=== PATIENT | male | born 1945 | race Caucasian/White ===

== ENCOUNTER 2018-12-05 21:18 | Inpatient (IN) | payer MEDICARE ==
[~2018-12-05] VITALS: Ht 188 cm; Wt 113.5 kg
--- NOTE | 2018-12-05 21:25 | ED.ADGEN ---
Past History Past Medical History: Arthritis, Bipolar, Dementia, Depression Adult General Chief Complaint Chief Complaint " Nothing... Nothing wrong...".." Except that I ve been on my feet all day..."." I should be in my recliner... I am retired...." " Retired from [employer] and [employer]... " HPI HPI Patient is a 73 year old male who presents with above hx and complaints of mental status change. [place] [facility] [place] on assisted and 3 yrs on in patient side. . Patient poorly having more delusions, paranoid thoughts, anger outbursts, irritability, depression, and more difficult to redirect. Patient has a history of dementia, bipolar, arthritis, diabetes, lumbar stenosis, sleep apnea, coronary artery disease, hypertension, hypothyroid, schizo effective disorder, hyperlipidemia, and deconditioning. 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 Patient follows with Dr. Pfeiffer. Review of Systems Review of Systems Constitutional: Denies fever or chills [] Eyes: Denies change in visual acuity, redness, or eye pain [] HENT: Denies nasal congestion or sore throat [] Respiratory: Denies cough or shortness of breath [] Cardiovascular: No additional information not addressed in HPI [] GI: Denies abdominal pain, nausea, vomiting, bloody stools or diarrhea [] : Denies dysuria or hematuria [] Musculoskeletal:Complaints of chronic back pain or joint pain [] Integument: Denies rash or skin lesions [] Neurologic: Denies headache, focal weakness or sensory changes [] Endocrine: Denies polyuria or polydipsia [] All other systems were reviewed and found to be within normal limits, except as documented in this note. Family History Family History Non-contributory Current Medications Current Medications Current Medications Medications (Trade) Dose Ordered Sig/Russel Start Time Stop Time Status Last Admin Dose Admin Lactated Ringer's 1,000 ml @ 100 mls/hr Q10H 12/05/18 21:29 12/06/18 00:42 DC 12/05/18 22:56 100 MLS/HR Levofloxacin (Levaquin) 500 mg 1X ONCE 12/06/18 00:15 12/06/18 00:16 DC 12/06/18 00:10 500 MG Magnesium Hydroxide (Milk Of Magnesia) 2,400 mg 1X ONCE 12/05/18 23:55 12/05/18 23:56 DC 12/06/18 00:10 2,400 MG Allergies Allergies Allergies Coded Allergies Type Severity Reaction Last Updated Verified Penicillins Allergy Unknown Unknown 12/05/18 Yes Pjaiijy-Kkh-Oyd Reductase Inhibitor Allergy Unknown Unknown 12/05/18 Yes Physical Exam Physical Exam Constitutional: no acute distress, non-toxic appearance. [] HENT: Normocephalic, atraumatic, bilateral external ears normal, oropharynx moist, no oral exudates, nose normal. [] Eyes: PERRLA, EOMI, conjunctiva normal, no discharge. Glasses. Iris scar from surgery Neck: Normal range of motion, no tenderness, supple, no stridor. [] Cardiovascular:Heart rate regular rhythm, no murmur. PMI to the left Lungs & Thorax: Bilateral breath sounds with apex with scattered wheezes auscultation [] Abdomen: Bowel sounds normal, soft, no tenderness, no masses, no pulsatile masses. [] Large midline hernia and umbilicus hernia- chronic Skin: Warm, dry, no erythema, no rash. [] Back: No tenderness, no CVA tenderness. [] Extremities: No tenderness, no cyanosis, no clubbing, ROM intact, calf edema, lower leg braces for foot drop. . Arthritis changes. Neurologic: Alert and oriented X 3, moves all ext on request, lower leg weakness, distal sensory, shuffling gait. ] Psychologic: Affect angry, judgement appears impaired, mood normal. [] Current Patient Data Lab Results Laboratory Tests Test 12/05/18 21:45 12/05/18 22:13 White Blood Count 7.4 x10^3/uL (4.0-11.0) Red Blood Count 4.63 x10^6/uL (4.30-5.70) Hemoglobin 14.3 g/dL (13.0-17.5) Hematocrit 42.7 % (39.0-53.0) Mean Corpuscular Volume 92 fL (79-100) Mean Corpuscular Hemoglobin 31 pg (25-35) Mean Corpuscular Hemoglobin Concent 34 g/dL (31-37) Red Cell Distribution Width 13.8 % (11.5-14.5) Platelet Count 282 x10^3/uL (140-400) Neutrophils (%) (Auto) 57 % (31-73) Lymphocytes (%) (Auto) 30 % (24-48) Monocytes (%) (Auto) 9 % (0-9) Eosinophils (%) (Auto) 4 % (0-3) H Basophils (%) (Auto) 0 % (0-3) Neutrophils # (Auto) 4.2 x10^3uL (1.8-7.7) Lymphocytes # (Auto) 2.2 x10^3/uL (1.0-4.8) Monocytes # (Auto) 0.6 x10^3/uL (0.0-1.1) Eosinophils # (Auto) 0.3 x10^3/uL (0.0-0.7) Basophils # (Auto) 0.0 x10^3/uL (0.0-0.2) Erythrocyte Sedimentation Rate 3 (0-15) Prothrombin Time 9.9 SEC (9.4-11.4) Prothrombin Time INR 1.0 (0.9-1.1) PTT 24 SEC (23-33) D-Dimer (La) 0.27 mg/L (0.00-0.50) Sodium Level 127 mmol/L (136-145) L Potassium Level 4.0 mmol/L (3.5-5.1) Chloride Level 89 mmol/L (98-107) L Carbon Dioxide Level 32 mmol/L (21-32) Anion Gap 6 (6-14) Blood Urea Nitrogen 11 mg/dL (8-26) Creatinine 0.9 mg/dL (0.7-1.3) Estimated GFR (Cockcroft-Gault) 82.9 Glucose Level 156 mg/dL (70-99) H Calcium Level 9.4 mg/dL (8.5-10.1) Magnesium Level 1.7 mg/dL (1.8-2.4) L Total Bilirubin 0.2 mg/dL (0.2-1.0) Direct Bilirubin 0.1 mg/dL (0.0-0.2) Aspartate Amino Transferase (AST) 37 U/L (15-37) Alanine Aminotransferase (ALT) 62 U/L (16-63) Alkaline Phosphatase 63 U/L (46-116) Creatine Kinase 290 U/L (39-308) Troponin I Quantitative < 0.017 ng/mL (0-0.055) HJ-Mzy-M-Type Natriuretic Peptide 54 pg/mL (0-124) Total Protein 6.7 g/dL (6.4-8.2) Albumin 3.8 g/dL (3.4-5.0) Lipase 232 U/L (73-393) Urine Collection Type Unknown Urine Color Yellow Urine Clarity Hazy Urine pH 7.0 Urine Specific [place] 1.010 Urine Protein Neg (NEG-TRACE) Urine Glucose (UA) Neg mg/dL (NEG) Urine Ketones (Stick) Neg mg/dL (NEG) Urine Blood Mod (NEG) Urine Nitrite Neg (NEG) Urine Bilirubin Neg (NEG) Urine Urobilinogen Dipstick 0.2 mg/dL (0.2 mg/dL) Urine Leukocyte Esterase Small (NEG) Urine RBC 1-2 /HPF (0-2) Urine WBC 1-4 /HPF (0-4) Urine Squamous Epithelial Cells Occ /LPF Urine Bacteria Few /HPF (0-FEW) Urine Opiates Screen Neg (NEG) Urine Methadone Screen Neg (NEG) Urine Barbiturates Neg (NEG) Urine Phencyclidine Screen Neg (NEG) Urine Amphetamine/Methamphetamine Neg (NEG) Urine Benzodiazepines Screen Neg (NEG) Urine Cocaine Screen Neg (NEG) Urine Cannabinoids Screen Neg (NEG) Urine Ethyl Alcohol Neg (NEG) EKG EKG My interpretation of EKG shows a sinus rhythm at 67 bpm. Left axis deviation and a fascicular block. No findings acute STEMI with contralateral changes. Some wavering baseline.[] Radiology/Procedures Radiology/Procedures [][address] [address] IMAGING REPORT Signed PATIENT: TISHA YORK ACCOUNT: [id number] : 1945 LOCATION: ER AGE: 73 SEX: M EXAM STATUS: REG ER ORD. PHYSICIAN: MARILIN MCELROY MD REASON: Mental status change PROCEDURE: CT HEAD WO CONTRAST INDICATION: Mental status change COMPARISON: None. TECHNIQUE: Axial CT images obtained through the head without intravenous contrast. One or more of the following individualized dose reduction techniques were utilized for this examination: 1. Automated exposure control; 2. Adjustment of the mA and/or kV according to patient size; 3. Use of iterative reconstruction technique. FINDINGS: No intracranial hemorrhage. No midline shift. Basal cisterns patents. Ventricles and sulci are globally prominent. No acute osseous abnormality. Orbits and paranasal sinuses unremarkable. Scattered foci of low attenuation within the white matter. IMPRESSION: 1. No acute intracranial hemorrhage. 2. Scattered regions of low attenuation within the white matter. Non-specific in nature but frequently secondary to chronic small vessel ischemic disease. 3. Prominence of ventricles and sulci which is frequently secondary to age related volume loss. Electronically signed by: Karie Villanueva MD (12/05/2018 10:50 PM) [facility] DICTATED AND SIGNED BY: KARIE VILLANUEVA MD DATE: 12/05/18 6735 CC: MARILIN MCELROY MD; JANE PFEIFFER Course & Med Decision Making Course & Med Decision Making Pertinent Labs and Imaging studies reviewed. (See chart for details) Admit to Dr. Elder, consult to Dr. Alexis [] Final Impression Final Impression 1. Mental Status Change[] 2. UTI 3. Hyponatremia 127 4. DM 156 5. Hypomagnesium 1.7 6. Hx Dementia 7. Hx. Delusions 8. Hx. Bipolar and Schizoaffective disorder Dragon Disclaimer Dragon Disclaimer This electronic medical record was generated, in whole or in part, using a voice recognition dictation system. Discharge Summary Visit Information Final Diagnosis Problems Medical Problems: (1) Mental status change resolved Status: Acute Brief Hospital Course Allergies Allergies Coded Allergies Type Severity Reaction Last Updated Verified Penicillins Allergy Unknown Unknown 12/05/18 Yes Zthgaer-Weh-Ork Reductase Inhibitor Allergy Unknown Unknown 12/05/18 Yes Lab Results Laboratory Tests Test 12/05/18 21:45 12/05/18 22:13 White Blood Count 7.4 x10^3/uL (4.0-11.0) Red Blood Count 4.63 x10^6/uL (4.30-5.70) Hemoglobin 14.3 g/dL (13.0-17.5) Hematocrit 42.7 % (39.0-53.0) Mean Corpuscular Volume 92 fL (79-100) Mean Corpuscular Hemoglobin 31 pg (25-35) Mean Corpuscular Hemoglobin Concent 34 g/dL (31-37) Red Cell Distribution Width 13.8 % (11.5-14.5) Platelet Count 282 x10^3/uL (140-400) Neutrophils (%) (Auto) 57 % (31-73) Lymphocytes (%) (Auto) 30 % (24-48) Monocytes (%) (Auto) 9 % (0-9) Eosinophils (%) (Auto) 4 % (0-3) Basophils (%) (Auto) 0 % (0-3) Neutrophils # (Auto) 4.2 x10^3uL (1.8-7.7) Lymphocytes # (Auto) 2.2 x10^3/uL (1.0-4.8) Monocytes # (Auto) 0.6 x10^3/uL (0.0-1.1) Eosinophils # (Auto) 0.3 x10^3/uL (0.0-0.7) Basophils # (Auto) 0.0 x10^3/uL (0.0-0.2) Erythrocyte Sedimentation Rate 3 (0-15) Prothrombin Time 9.9 SEC (9.4-11.4) Prothromb Time International Ratio 1.0 (0.9-1.1) Activated Partial Thromboplast Time 24 SEC (23-33) D-Dimer (La) 0.27 mg/L (0.00-0.50) Sodium Level 127 mmol/L (136-145) Potassium Level 4.0 mmol/L (3.5-5.1) Chloride Level 89 mmol/L (98-107) Carbon Dioxide Level 32 mmol/L (21-32) Anion Gap 6 (6-14) Blood Urea Nitrogen 11 mg/dL (8-26) Creatinine 0.9 mg/dL (0.7-1.3) Estimated GFR (Cockcroft-Gault) 82.9 Glucose Level 156 mg/dL (70-99) Calcium Level 9.4 mg/dL (8.5-10.1) Magnesium Level 1.7 mg/dL (1.8-2.4) Total Bilirubin 0.2 mg/dL (0.2-1.0) Direct Bilirubin 0.1 mg/dL (0.0-0.2) Aspartate Amino Transf (AST/SGOT) 37 U/L (15-37) Alanine Aminotransferase (ALT/SGPT) 62 U/L (16-63) Alkaline Phosphatase 63 U/L (46-116) Creatine Kinase 290 U/L (39-308) Troponin I Quantitative < 0.017 ng/mL (0-0.055) PY-Thc-R-Type Natriuretic Peptide 54 pg/mL (0-124) Total Protein 6.7 g/dL (6.4-8.2) Albumin 3.8 g/dL (3.4-5.0) Lipase 232 U/L (73-393) Urine Collection Type Unknown Urine Color Yellow Urine Clarity Hazy Urine pH 7.0 Urine Specific [place] 1.010 Urine Protein Neg (NEG-TRACE) Urine Glucose (UA) Neg mg/dL (NEG) Urine Ketones (Stick) Neg mg/dL (NEG) Urine Blood Mod (NEG) Urine Nitrite Neg (NEG) Urine Bilirubin Neg (NEG) Urine Urobilinogen Dipstick 0.2 mg/dL (0.2 mg/dL) Urine Leukocyte Esterase Small (NEG) Urine RBC 1-2 /HPF (0-2) Urine WBC 1-4 /HPF (0-4) Urine Squamous Epithelial Cells Occ /LPF Urine Bacteria Few /HPF (0-FEW) Urine Opiates Screen Neg (NEG) Urine Methadone Screen Neg (NEG) Urine Barbiturates Neg (NEG) Urine Phencyclidine Screen Neg (NEG) Urine Amphetamine/Methamphetamine Neg (NEG) Urine Benzodiazepines Screen Neg (NEG) Urine Cocaine Screen Neg (NEG) Urine Cannabinoids Screen Neg (NEG) Urine Ethyl Alcohol Neg (NEG) Brief Hospital Course Mr. York is a 73 old male who presented with mental status changes. Admitted to Dr. Elder- [facility], Consult to Dr. Alexis for medical issues. Discharge Information Condition at Discharge: Stable Dischare Medications Current Medications Lactated Ringer's 1,000 ml @ 100 mls/hr Q10H IV Last administered on 12/05/18at 22:56; Admin Dose 100 MLS/HR; Start 12/05/18 at 21:29; Stop 12/06/18 at 00:42; Status DC Magnesium Hydroxide (Milk Of Magnesia) 2,400 mg 1X ONCE PO Last administered on 12/06/18at 00:10; Admin Dose 2,400 MG; Start 12/05/18 at 23:55; Stop 12/05/18 at 23:56; Status DC Levofloxacin (Levaquin) 500 mg DAILY PO ; Start 12/06/18 at 09:00; Stop 12/06/18 at 09:00; Status DC Levofloxacin (Levaquin) 500 mg 1X ONCE PO Last administered on 12/06/18at 00:10; Admin Dose 500 MG; Start 12/06/18 at 00:15; Stop 12/06/18 at 00:16; Status DC Active Scripts Active Reported Refresh Liquigel (Carboxymethylcellulose Sodium) 15 Ml Drp.lq.gel 2 Drop OU BID Propranolol Hcl 40 Mg Tablet 40 Mg PO BID Pantoprazole Sodium 40 Mg Tablet.dr 40 Mg PO BIDACLD Metformin Hcl 1,000 Mg Tablet 1,000 Mg PO BIDWMEALS Mucinex Dm Er 1,200-60 Mg Tab (Guaifenesin/Dextromethorphan) 1 Each Tbmp.12hr 1 Tab PO BID PRN Ibuprofen 400 Mg Tablet 400 Mg PO PRN BID PRN Vitamin D3 (Cholecalciferol (Vitamin D3)) 1,000 Unit Tablet 1,000 Unit PO DAILY Venlafaxine Hcl Er (Venlafaxine Hcl) 150 Mg Cap.er.24h 150 Mg PO DAILY Trazodone Hcl 50 Mg Tablet 50 Mg PO HS Flomax (Tamsulosin Hcl) 0.4 Mg Cap.er.24h 0.4 Mg PO HS Senokot-S Tablet (Sennosides/Docusate Sodium) 1 Each Tablet 1 Tab PO BID Selenium Sulfide 180 Ml Shampoo 1 [place] TP QODAY Acetaminophen 325 Mg Tablet 650 Mg PO QID Levothyroxine Sodium 50 Mcg Tablet 50 Mcg PO DAILYAC Latuda (Lurasidone Hcl) 80 Mg Tablet 80 Mg PO QEVNG Latuda (Lurasidone Hcl) 60 Mg Tablet 60 Mg PO QEVNG Hydrochlorothiazide Tablet (Hydrochlorothiazide) 25 Mg Tablet 25 Mg PO DAILY Gabapentin 100 Mg Capsule 200 Mg PO HS Triamterene-Hctz 37.5-25 Mg Cp (Triamterene/Hydrochlorothiazid) 1 Each Capsule 1 Cap PO DAILY Fluticasone Propionate Nasal [place] (Fluticasone Propionate) 16 Gm [place].susp 1 [place] NS DAILY Zetia (Ezetimibe) 10 Mg Tablet 10 Mg PO DAILY Eszopiclone 2 Mg Tablet 2 Mg PO HS Escitalopram Oxalate 10 Mg Tablet 10 Mg PO DAILY Dyrenium (Triamterene) 50 Mg Capsule 50 Mg PO DAILY Docusate Sodium 100 Mg Capsule 100 Mg PO BID Divalproex Sodium Er (Divalproex Sodium) 500 Mg Tab.er.24h 1,500 Mg PO HS Polyethylene Glycol 3350 2,500 Gm Powder 17 Gm PO DAILY Aspirin Ec (Aspirin) 81 Mg Tablet.dr 81 Mg PO DAILY Abilify (Aripiprazole) 30 Mg Tablet 30 Mg PO HS Dragon Disclaimer This chart was dictated in whole or in part using Voice Recognition software in a busy, high-work load, and often noisy Emergency Department environment. It may contain unintended and wholly unrecognized errors or omissions. MARILIN MCELROY MD Dec 05, 2018 21:25
[2018-12-05] MEDS ORDERED: IV RINGERS SOLUTION,LACTATED 1,000 ML IV SCH (21:29)
[2018-12-05 22:02] LABS: BASO % 0 % (0-3); EOS # 0.3 x10^3/uL (0.0-0.7); EOS % 4 % (0-3); HEMATOCRIT 42.7 % (39.0-53.0); HEMOGLOBIN 14.3 g/dL (13.0-17.5); LYMPH # 2.2 x10^3/uL (1.0-4.8); LYMPH % 30 % (24-48); MEAN CORPUSCULAR HEMOGLOBIN 31 pg (25-35); MEAN CORPUSCULAR HGB CONC 34 g/dL (31-37); MEAN CORPUSCULAR VOLUME 92 fL (79-100); MONO # 0.6 x10^3/uL (0.0-1.1); MONO % 9 % (0-9); NEUT # 4.2 x10^3uL (1.8-7.7); NEUT % 57 % (31-73); PLATELET COUNT 282 x10^3/uL (140-400); RED BLOOD COUNT 4.63 x10^6/uL (4.30-5.70); RED CELL DISTRIBUTION WIDTH 13.8 % (11.5-14.5); WHITE BLOOD COUNT 7.4 x10^3/uL (4.0-11.0)
[2018-12-05] MEDS ORDERED: TRIA50CA PO (22:10)
[2018-12-05] MEDS ORDERED: TRIA1CAP3 PO (22:10)
[2018-12-05] MEDS ORDERED: DOCU100C28 PO (22:10)
[2018-12-05] MEDS ORDERED: EZET10TA18 PO (22:10)
[2018-12-05] MEDS ORDERED: FLUT16SP21 NS (22:10)
[2018-12-05] MEDS ORDERED: POLY2500 PO (22:10)
[2018-12-05] MEDS ORDERED: ASPI-612 PO (22:10)
[2018-12-05] MEDS ORDERED: ARIP30TA4 PO (22:10)
[2018-12-05] MEDS ORDERED: DIVA500T17 PO (22:10)
[2018-12-05] MEDS ORDERED: ESZO2TAB26 PO (22:10)
[2018-12-05] MEDS ORDERED: ESCITALOPRAM OX10 MG PO (22:10)
[2018-12-05 22:25] LABS: ALBUMIN 3.8 g/dL (3.4-5.0); CALCIUM 9.4 mg/dL (8.5-10.1); CREATININE 0.9 mg/dL (0.7-1.3); DIRECT BILIRUBIN 0.1 mg/dL (0.0-0.2); GFR 82.9; MAGNESIUM 1.7 mg/dL (1.8-2.4); TOTAL BILIRUBIN 0.2 mg/dL (0.2-1.0); TOTAL PROTEIN 6.7 g/dL (6.4-8.2)
[2018-12-05] MEDS ORDERED: VENL150C6 PO (22:26)
[2018-12-05] MEDS ORDERED: PROP40TA PO (22:26)
[2018-12-05] MEDS ORDERED: SELE180S3 TP (22:26)
[2018-12-05] MEDS ORDERED: LURA80TA PO (22:26)
[2018-12-05] MEDS ORDERED: TRAZ-120 PO (22:26)
[2018-12-05] MEDS ORDERED: TAMS0.4C97 PO (22:26)
[2018-12-05] MEDS ORDERED: LEVO50TA5 PO (22:26)
[2018-12-05] MEDS ORDERED: HYDR-2145 PO (22:26)
[2018-12-05] MEDS ORDERED: GABA100C6 PO (22:26)
[2018-12-05] MEDS ORDERED: SENN-37 PO (22:26)
[2018-12-05] MEDS ORDERED: CARB15DR4 OU (22:26)
[2018-12-05] MEDS ORDERED: GUAI1TBM10 PO (22:26)
[2018-12-05] MEDS ORDERED: PANT40TA5 PO (22:26)
[2018-12-05] MEDS ORDERED: IBUP400T18 PO (22:26)
[2018-12-05] MEDS ORDERED: METF10007 PO (22:26)
[2018-12-05] MEDS ORDERED: CHOL10003 PO (22:26)
[2018-12-05] MEDS ORDERED: LURA60TA PO (22:26)
[2018-12-05] MEDS ORDERED: ACET325T21 PO (22:26)
[2018-12-05 22:29] LABS: BACTERIA,URINE FEW /HPF (0-FEW); BILIRUBIN,URINE NEG (NEG); CLARITY,URINE HAZY; COLOR,URINE YELLOW; GLUCOSE,URINE NEG (NEG); NITRITE,URINE NEG (NEG); SQUAMOUS EPITHELIAL CELL,UR OCC /LPF; UROBILINOGEN,URINE 0.2 mg/dL (0.2 mg/dL)
[2018-12-05 22:35] LABS: AMPHETAMINE/METHAMPHETAMINE NEG (NEG); BARBITURATES NEG (NEG); BENZODIAZEPINES NEG (NEG); CANNABINOIDS NEG (NEG); COCAINE NEG (NEG); METHADONE NEG (NEG); OPIATES NEG (NEG); PHENCYCLIDINE NEG (NEG)
--- NOTE | 2018-12-05 22:53 | RAD ---
INDICATION: Mental status change COMPARISON: None. TECHNIQUE: Axial CT images obtained through the head without intravenous contrast. One or more of the following individualized dose reduction techniques were utilized for this examination: 1. Automated exposure control; 2. Adjustment of the mA and/or kV according to patient size; 3. Use of iterative reconstruction technique. FINDINGS: No intracranial hemorrhage. No midline shift. Basal cisterns patents. Ventricles and sulci are globally prominent. No acute osseous abnormality. Orbits and paranasal sinuses unremarkable. Scattered foci of low attenuation within the white matter. IMPRESSION: 1. No acute intracranial hemorrhage. 2. Scattered regions of low attenuation within the white matter. Non-specific in nature but frequently secondary to chronic small vessel ischemic disease. 3. Prominence of ventricles and sulci which is frequently secondary to age related volume loss. Electronically signed by: Dieter Maxwell MD (12/05/2018 10:50 PM) [facility]
[2018-12-05 23:07] LABS: SEDIMENTATION RATE 3 (0-15)
[2018-12-05] MEDS ORDERED: MAGNESIUM HYDROXIDE 2,400 MG/30 ML ORAL.SUSP. PO ONE (23:55)
[2018-12-06] MEDS ORDERED: levoFLOXacin 500 MG TABLET PO ONE (00:15)
[2018-12-06 01:14] VITALS: BP 132/76
[2018-12-06] MEDS ORDERED: ESZOPICLONE 2 MG PO SCH ×2 (01:15→21:00)
[2018-12-06] MEDS ORDERED: ARIPIPRAZOLE 30 MG PO SCH ×2 (01:15→21:00)
[2018-12-06] MEDS ORDERED: MAGNESIUM HYDROXIDE 2,400 MG/30 ML ORAL.SUSP. PO PRN (01:15)
[2018-12-06] MEDS ORDERED: guaiFENesin DM 600/30MG 1 TAB TAB.ER.12H PO PRN (01:15)
[2018-12-06] MEDS ORDERED: MAG HYDROX/AL HYDROX/SIMETH 30 ML ORAL.SUSP PO PRN (01:15)
[2018-12-06] MEDS ORDERED: NON FORMULARY ITEM (Trazodone Hcl 50 MG) PO SCH ×2 (01:15→21:00)
[2018-12-06] MEDS ORDERED: DIVALPROEX SODIUM 1500 MG PO SCH ×2 (01:15→21:00)
[2018-12-06] MEDS: DIVALPROEX ER 500 MG TAB.ER.24H PO SCH ×3 (02:00→23:08)
[2018-12-06] MEDS: ARIPiprazole 15 MG TABLET PO SCH ×2 (02:00→02:12)
[2018-12-06] MEDS ORDERED: GABAPENTIN 100 MG CAPSULE. PO SCH (02:00)
[2018-12-06] MEDS: traZODone 50 MG TABLET. PO SCH ×2 (02:00→02:12)
[2018-12-06 05:24] VITALS: BP 128/73
[2018-12-06] MEDS ORDERED: LEVOTHYROXINE 50 MCG TABLET PO SCH (06:00)
[2018-12-06] MEDS: LEVOTHYROXINE 50 MCG TABLET PO SCH (06:00)
[2018-12-06 06:23] LABS: VAL ACID 64 mcg/mL (50-100)
[2018-12-06 06:42] LABS: ALBUMIN 3.4 g/dL (3.4-5.0); ALBUMIN/GLOBULIN RATIO 1.1 (1.0-1.7); GFR 73.5; TOTAL BILIRUBIN 0.2 mg/dL (0.2-1.0); TOTAL PROTEIN 6.4 g/dL (6.4-8.2)
[2018-12-06] MEDS ORDERED: metFORMIN 500 MG TABLET PO SCH (08:00)
[2018-12-06] MEDS ORDERED: ASPIRIN ENTERIC COATED 81 MG TABLET.DR. PO SCH (08:00)
--- NOTE | 2018-12-06 08:45 | RAD ---
AP chest. HISTORY: Dyspnea AP view was taken of the chest. Lungs are clear. Heart is normal in size without heart failure. There is no effusion. There is hypertrophic change in the thoracic spine. IMPRESSION: 1. No acute chest disease. Electronically signed by: Lloyd Barron MD (12/06/2018 8:42 AM) [facility]
[2018-12-06] MEDS ORDERED: SELENIUM SULFIDE TP SCH (09:00)
[2018-12-06] MEDS ORDERED: NON FORMULARY ITEM (Escitalopram Oxalate 10 MG) PO SCH (09:00)
[2018-12-06] MEDS ORDERED: TRIAMTERENE 50 MG PO SCH (09:00)
[2018-12-06] MEDS ORDERED: DOCUSATE SODIUM 100 MG CAPSULE PO SCH (09:00)
[2018-12-06] MEDS ORDERED: CARBOXYMETHYLCELLULOSE SODIUM OU SCH (09:00)
[2018-12-06] MEDS ORDERED: FLUTICASONE PROPIONATE NS SCH (09:00)
[2018-12-06] MEDS ORDERED: EZETIMIBE 10 MG TABLET PO SCH (09:00)
[2018-12-06] MEDS: TRIAMTERENE 50 MG PO SCH (09:00)
[2018-12-06] MEDS ORDERED: NON FORMULARY ITEM (Venlafaxine Hcl (Venlafaxine Hcl Er) 150 MG) PO SCH (09:00)
[2018-12-06] MEDS ORDERED: POLYETHYLENE GLYCOL 3350 17 GM PACKET. PO SCH (09:00)
[2018-12-06] MEDS ORDERED: PROPRANOLOL 10 MG TABLET. PO SCH (09:00)
[2018-12-06] MEDS ORDERED: [UNRECOGNIZED DRUG - OTHER] PO SCH (09:00)
[2018-12-06] MEDS ORDERED: hydroCHLOROthiazide 25 MG TABLET PO SCH (09:00)
[2018-12-06] MEDS ORDERED: VENLAFAXINE XR 37.5 MG CAP.ER.24H. PO SCH (09:00)
[2018-12-06] MEDS: DOCUSATE SODIUM 100 MG CAPSULE PO SCH ×2 (10:18→23:08)
[2018-12-06] MEDS: CITALOPRAM 20 MG TABLET. PO SCH (10:18)
[2018-12-06] MEDS: POLYVINYL ALCOHOL/POVIDONE/PF OPHTH SOLUTION DROPERETTE. OU SCH ×2 (10:18→23:09)
[2018-12-06] MEDS: LACTOBACILLUS RHAMNOSUS GG 1 CAPSULE. PO SCH ×2 (10:18→23:08)
[2018-12-06] MEDS: ASPIRIN ENTERIC COATED 81 MG TABLET.DR. PO SCH (10:18)
[2018-12-06] MEDS: SENNOSIDES/DOCUSATE 8.6/50MG TABLET. PO SCH ×2 (10:19→23:09)
[2018-12-06] MEDS: POLYETHYLENE GLYCOL 3350 17 GM PACKET. PO SCH (10:19)
[2018-12-06] MEDS: levoFLOXacin 500 MG TABLET PO SCH (10:19)
[2018-12-06] MEDS: VENLAFAXINE 50 MG TABLET. PO SCH ×3 (10:19→23:09)
[2018-12-06] MEDS: PROPRANOLOL 20 MG TABLET. PO SCH ×2 (10:20→23:10)
[2018-12-06] MEDS: TRIAMTERENE/HCTZ 37.5/25MG TABLET. PO SCH (10:21)
[2018-12-06] MEDS: EZETIMIBE 10 MG TABLET PO SCH (10:21)
[2018-12-06] MEDS: CHOLECALCIFEROL (VITAMIN D3) 1,000 UNIT TABLET PO SCH (10:21)
[2018-12-06] MEDS: FLUTICASONE 50MCG/NASAL SPRAY 16GM BOTTLE. NS SCH (10:21)
[2018-12-06] MEDS: metFORMIN 500 MG TABLET PO SCH ×3 (10:21→17:00)
[2018-12-06] MEDS: SELENIUM SULFIDE 1% TOPICAL SHAMPOO 207ML BOTTLE. TP SCH (10:24)
[2018-12-06] MEDS: ACETAMINOPHEN 325 MG TABLET PO SCH ×5 (10:26→23:09)
[2018-12-06] MEDS ORDERED: PANTOPRAZOLE 40 MG TABLET. PO SCH (11:30)
[2018-12-06 12:08] LABS: THYROXINE 6.2 ug/dL (4.5-12.0)
[2018-12-06] MEDS: PANTOPRAZOLE 40 MG TABLET. PO SCH ×3 (13:21→16:30)
[2018-12-06 15:33] VITALS: BP 133/81
[2018-12-06] MEDS: LURASIDONE 40 MG TABLET. PO SCH ×2 (16:22→17:04)
[2018-12-06] MEDS ORDERED: LURASIDONE HCL 80 MG PO SCH (18:00)
[2018-12-06] MEDS ORDERED: LURASIDONE 40 MG TABLET. PO SCH (18:00)
[2018-12-06] MEDS ORDERED: NON FORMULARY ITEM (Lurasidone Hcl (Latuda) 60 MG) PO SCH (18:00)
--- NOTE | 2018-12-06 21:49 | HP ---
ADMIT DATE: 12/06/2018 PSYCHIATRIC ADMISSION HISTORY/EVALUATION This note covers elements not covered in my initial note 12/06/2018. IDENTIFYING DATA: The patient is a 73-year-old male referred to us from [facility] by Dr. Pfeiffer, his primary care physician as coordinated by Steve York, his brother who is his legal guardian on account of worsening delusions, paranoia, having anger outbursts, increased irritability, worsening symptoms of depression. He has failed outpatient psychiatric interventions and prior psychiatric hospitalization at the [facility] a few years ago. CHIEF COMPLAINT: "Get out." The patient is angry, irritable initially refusing to let the door open to his room, but then refusing to answer questions initially. HISTORY OF PRESENT ILLNESS: The patient has a history of schizoaffective disorder, bipolar type, mixed with psychotic features. He has been at the above facility for some time, but recently getting more agitated, paranoid, aggressive, disruptive. He has had sleep and appetite changes. No active suicidal or homicidal ideation. He has been quite paranoid, since admission, believes that people are sexually assaulting him. The correctional case manager had called and told the staff, the patient is refusing all his psychotropics and his other medications as well and his psychotropics had not been changed in quite some time. He has failed outpatient psychiatric interventions. PAST PSYCHIATRIC HISTORY: As above. PAST MEDICAL HISTORY: Positive for diabetes mellitus, hyperlipidemia, hypertension, coronary artery disease, arthritis, lumbar stenosis, obstructive sleep apnea, hypothyroidism. CODE STATUS: Full code. DRUG ALLERGIES: PENICILLIN AND STATINS. Accu-Cheks daily. Diet regular, diabetic, takes medications whole. Ambulates ad spike with walker. UA was positive. Culture is pending. Started on Levaquin in ER. CURRENT PSYCHOTROPICS: Abilify 30 mg at bedtime, Depakote ER 1500 mg at bedtime, Lexapro 10 mg a day, Effexor XR 150 mg a day, Lunesta 2 mg at bedtime, Latuda 140 mg a day, trazodone 50 mg at bedtime. Valproic acid level at admission is 64. FAMILY HISTORY: Noncontributory. SOCIAL HISTORY: No history of alcohol, drug abuse, physical, sexual or elder abuse. He is not known to be a perpetrator. REACTION TO HOSPITALIZATION: The patient is aware of this, resistive. ASSETS: Supportive living at the above [facility]. MENTAL STATUS EXAMINATION: The patient was seen individually in his room evening of 12/06/2018. He refuses to answer orientation questions. Eye contact is poor. Psychomotor activity reduced. Speech, often responses monosyllabic. Insight limited, judgment marginal, language function intact, attention span short. Mood and affect withdrawn. He is quite paranoid, psychotic, delusional. LABORATORY DATA: Reviewed. No active suicidal or homicidal ideation. IMPRESSION: Schizoaffective disorder, bipolar type, mixed with psychotic features; bipolar 1 disorder, mixed with psychotic features; anxiety disorder, unspecified; mild cognitive impairment, impulse control disorder. Rest is unchanged from above. PLAN: Admit to Geropsychiatry Unit at [facility]. I will see the patient daily individually from a psychiatric standpoint. Medical followup with Dr. Alexis. The patient is on a rather unusual combination of 2 antidepressants and we may have to simplify this regimen, but for now we will drop the Latuda down to 80 mg a day, change the Abilify 30 mg a day to Risperdal 1 mg at bedtime, increase trazodone from 50 mg at bedtime to 100 mg at bedtime, may repeat x 1 for insomnia since insomnia is still a problem. We will make further adjustments post baseline assessment. Estimated length of stay 10-12 days. DISPOSITION: Plans back to prison in stable condition. RADHA JARA MD DR: CECILIA/addie JOB#: [id number] / [id number]
--- NOTE | 2018-12-06 23:05 | PDOC ---
Exam Note: John Note: Please also refer to the separate dictated note~for this date of service dictated separately.~Patient seen individually. Discussed the patient with Nursing staff reviewed the chart.~Reviewed interim history and current functioning. Reviewed vital signs,~Labs/ Radiology~and current medications noted below. Continue current treatment with the changes noted in the dictated addendum note Assessment: Vital Signs/I&O: Vital Signs Date Time Temp Pulse Resp B/P (MAP) Pulse Ox O2 Delivery O2 Flow Rate FiO2 12/06/18 15:33 97.8 62 18 133/81 (98) 94 12/06/18 05:24 Room Air I & O 12/05/18 12/05/18 12/06/18 15:00 23:00 07:00 Intake Total 1000 ml Balance 1000 ml Labs: Laboratory Tests Test 12/06/18 06:14 12/06/18 07:20 Sodium Level 134 mmol/L (136-145) L Potassium Level 4.0 mmol/L (3.5-5.1) Chloride Level 92 mmol/L (98-107) L Carbon Dioxide Level 36 mmol/L (21-32) H Anion Gap 6 (6-14) Blood Urea Nitrogen 11 mg/dL (8-26) Creatinine 1.0 mg/dL (0.7-1.3) Estimated GFR (Cockcroft-Gault) 73.5 BUN/Creatinine Ratio 11 (6-20) Glucose Level 107 mg/dL (70-99) H Calcium Level 9.0 mg/dL (8.5-10.1) Total Bilirubin 0.2 mg/dL (0.2-1.0) Aspartate Amino Transferase (AST) 31 U/L (15-37) Alanine Aminotransferase (ALT) 52 U/L (16-63) Alkaline Phosphatase 54 U/L (46-116) Total Protein 6.4 g/dL (6.4-8.2) Albumin 3.4 g/dL (3.4-5.0) Albumin/Globulin Ratio 1.1 (1.0-1.7) Glucose (Fingerstick) 114 mg/dL (70-99) H Current Medications: Meds: Current Medications Medications (Trade) Dose Ordered Sig/Russel Route PRN Reason Start Time Stop Time Status Last Admin Dose Admin Magnesium Hydroxide (Milk Of Magnesia) 2,400 mg 1X ONCE PO 12/05/18 23:55 12/05/18 23:56 DC 12/06/18 00:10 Levofloxacin (Levaquin) 500 mg DAILY PO 12/06/18 09:00 12/06/18 10:19 Levofloxacin (Levaquin) 500 mg 1X ONCE PO 12/06/18 00:15 12/06/18 00:16 DC 12/06/18 00:10 Acetaminophen (Tylenol) 650 mg QID PO 12/06/18 09:00 12/06/18 13:22 Vitamin D (Vitamin D3) 1,000 unit DAILY PO 12/06/18 09:00 12/06/18 10:21 Senna/Docusate Sodium (Senna Plus) 1 tab BID PO 12/06/18 09:00 12/06/18 10:19 Levothyroxine Sodium (Synthroid) 50 mcg DAILY06 PO 12/06/18 06:00 12/06/18 06:00 Metformin HCl (Glucophage) 1,000 mg BIDWMEALS PO 12/06/18 08:00 12/06/18 10:21 Pantoprazole Sodium (Protonix) 40 mg BIDACLD PO 12/06/18 11:30 12/06/18 13:21 Polyethylene Glycol (miraLAX) 17 gm DAILY PO 12/06/18 09:00 12/06/18 10:19 Propranolol HCl (Inderal) 40 mg BID PO 12/06/18 09:00 12/06/18 10:20 Aspirin (Aspirin Enteric Coated) 81 mg DAILYWBKFT PO 12/06/18 08:00 12/06/18 10:18 Artificial Tears (Refresh Classic) 2 drop BID OU 12/06/18 09:00 12/06/18 10:18 Docusate Sodium (Colace) 100 mg BID PO 12/06/18 09:00 12/06/18 10:18 EZETIMIBE (Zetia) 10 mg DAILY PO 12/06/18 09:00 12/06/18 10:21 Fluticasone Propionate (Flonase) 2 spray DAILY NS 12/06/18 09:00 12/06/18 10:21 Selenium Sulfide (Selsun) 1 colin QODAY TP 12/06/18 09:00 12/06/18 10:24 Citalopram Hydrobromide (CeleXA) 20 mg DAILY PO 12/06/18 09:00 12/06/18 10:18 Triamterene/HCTZ (Maxzide 37.5/ 25mg) 1 tab DAILY PO 12/06/18 09:00 12/06/18 10:21 Venlafaxine HCl (Effexor) 50 mg TID PO 12/06/18 09:00 12/06/18 13:22 Lactobacillus Rhamnosus (Culturelle) 1 cap BID PO 12/06/18 09:00 12/06/18 10:18 I have reviewed the current psychotropics carefully including drug interactions. Risk benefit ratio favors no change other than as noted in my dictated progress note. Diagnosis: Problems: (1) Anxiety disorder (2) Schizoaffective disorder, chronic condition with acute exacerbation (3) Schizoaffective disorder, bipolar type (4) Urinary tract infection RADHA JARA MD Dec 06, 2018 23:05
[2018-12-06] MEDS: traZODone 100 MG TABLET. PO SCH (23:12)
[2018-12-06] MEDS: risperiDONE 1 MG TABLET. PO SCH (23:12)
[2018-12-06] MEDS: GABAPENTIN 100 MG CAPSULE. PO SCH (23:12)
[2018-12-06] MEDS: TAMSULOSIN 0.4 MG CAP.ER.24H. PO SCH (23:12)
[2018-12-06] MEDS: ZOLPIDEM 5 MG TABLET. PO SCH (23:12)
[2018-12-07 01:10] LABS: HEMOGLOBIN A1C 6.2 % (4.8-5.6)
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
[2018-12-07] MEDS: LEVOTHYROXINE 50 MCG TABLET PO SCH (05:07)
[2018-12-07 06:16] VITALS: BP 121/71
[2018-12-07] MEDS: ASPIRIN ENTERIC COATED 81 MG TABLET.DR. PO SCH (07:56)
[2018-12-07] MEDS: TRIAMTERENE/HCTZ 37.5/25MG TABLET. PO SCH (07:57)
[2018-12-07] MEDS: POLYVINYL ALCOHOL/POVIDONE/PF OPHTH SOLUTION DROPERETTE. OU SCH ×2 (07:57→20:03)
[2018-12-07] MEDS: FLUTICASONE 50MCG/NASAL SPRAY 16GM BOTTLE. NS SCH (07:57)
[2018-12-07] MEDS: metFORMIN 500 MG TABLET PO SCH ×2 (07:57→17:17)
[2018-12-07] MEDS: LACTOBACILLUS RHAMNOSUS GG 1 CAPSULE. PO SCH ×2 (07:58→20:01)
[2018-12-07] MEDS: levoFLOXacin 500 MG TABLET PO SCH (07:58)
[2018-12-07] MEDS: VENLAFAXINE 50 MG TABLET. PO SCH ×3 (07:58→20:02)
[2018-12-07] MEDS: CITALOPRAM 20 MG TABLET. PO SCH (07:58)
[2018-12-07] MEDS: DOCUSATE SODIUM 100 MG CAPSULE PO SCH ×2 (07:58→20:03)
[2018-12-07] MEDS: EZETIMIBE 10 MG TABLET PO SCH (07:59)
[2018-12-07] MEDS: SENNOSIDES/DOCUSATE 8.6/50MG TABLET. PO SCH ×2 (07:59→20:01)
[2018-12-07] MEDS: ACETAMINOPHEN 325 MG TABLET PO SCH ×4 (07:59→20:02)
[2018-12-07] MEDS: CHOLECALCIFEROL (VITAMIN D3) 1,000 UNIT TABLET PO SCH (07:59)
[2018-12-07] MEDS: PROPRANOLOL 20 MG TABLET. PO SCH ×2 (08:00→20:05)
[2018-12-07] MEDS: TRIAMTERENE 50 MG PO SCH (09:00)
[2018-12-07] MEDS: POLYETHYLENE GLYCOL 3350 17 GM PACKET. PO SCH (09:00)
[2018-12-07] MEDS: PANTOPRAZOLE 40 MG TABLET. PO SCH ×2 (11:13→17:17)
[2018-12-07 16:14] VITALS: BP 119/69
[2018-12-07] MEDS: LURASIDONE 40 MG TABLET. PO SCH (17:18)
[2018-12-07] MEDS: TAMSULOSIN 0.4 MG CAP.ER.24H. PO SCH (20:01)
[2018-12-07] MEDS: traZODone 100 MG TABLET. PO SCH (20:01)
[2018-12-07] MEDS: risperiDONE 1 MG TABLET. PO SCH (20:02)
[2018-12-07] MEDS: DIVALPROEX ER 500 MG TAB.ER.24H PO SCH (20:02)
[2018-12-07] MEDS: GABAPENTIN 100 MG CAPSULE. PO SCH (20:02)
[2018-12-07] MEDS: ZOLPIDEM 5 MG TABLET. PO SCH (20:03)
--- NOTE | 2018-12-07 21:40 | PDOC ---
Exam Note: John Note: Please also refer to the separate dictated note~for this date of service dictated separately.~Patient seen individually. Discussed the patient with Nursing staff reviewed the chart.~Reviewed interim history and current functioning. Reviewed vital signs,~Labs/ Radiology~and current medications noted below. Continue current treatment with the changes noted in the dictated addendum note Assessment: Vital Signs/I&O: Vital Signs Date Time Temp Pulse Resp B/P (MAP) Pulse Ox O2 Delivery O2 Flow Rate FiO2 12/07/18 20:05 85 119/69 12/07/18 16:14 97.1 18 94 12/07/18 06:16 Room Air I & O 12/06/18 12/06/18 12/07/18 15:00 23:00 07:00 Intake Total 240 ml 0 ml 480 ml Balance 240 ml 0 ml 480 ml Labs: Laboratory Tests Test 12/07/18 07:26 Glucose (Fingerstick) 104 mg/dL (70-99) H Current Medications: I have reviewed the current psychotropics carefully including drug interactions. Risk benefit ratio favors no change other than as noted in my dictated progress note. Diagnosis: Problems: (1) Anxiety disorder (2) Schizoaffective disorder, chronic condition with acute exacerbation (3) Schizoaffective disorder, bipolar type (4) Mild cognitive impairment (5) Impulse control disorder RADHA JARA MD Dec 07, 2018 21:40
[2018-12-08] MEDS: LEVOTHYROXINE 50 MCG TABLET PO SCH (05:12)
--- NOTE | 2018-12-08 06:23 | EKG ---
[address] [address] Test Date: 2018-12-05 Test Time: 22:04:04 Pat Name: TISHA RIVERA Department: Room: [facility] 1 Gender: M Flight Nurse: DUY : 1945 Requested By: MARILIN MCELROY Order Number: [id number] Reading MD: Aryan Goodman MD Measurements Intervals [place] Rate: 67 P: [place]: QRS: -50 QRSD: 136 T: 32 QT: 406 QTc: 432 Interpretive Statements SR LAFB NON-SPECIFIC ST/T CHANGES Electronically Signed On 12-29-2018 21:27:29 CDT by Aryan Goodman MD
[2018-12-08 06:48] VITALS: BP 110/68
[2018-12-08] MEDS: ASPIRIN ENTERIC COATED 81 MG TABLET.DR. PO SCH (07:44)
[2018-12-08] MEDS: POLYVINYL ALCOHOL/POVIDONE/PF OPHTH SOLUTION DROPERETTE. OU SCH ×2 (07:45→19:51)
[2018-12-08] MEDS: TRIAMTERENE 50 MG PO SCH (07:45)
[2018-12-08] MEDS: FLUTICASONE 50MCG/NASAL SPRAY 16GM BOTTLE. NS SCH (07:45)
[2018-12-08] MEDS: metFORMIN 500 MG TABLET PO SCH ×2 (07:45→17:16)
[2018-12-08] MEDS: DOCUSATE SODIUM 100 MG CAPSULE PO SCH ×2 (07:46→19:53)
[2018-12-08] MEDS: VENLAFAXINE 50 MG TABLET. PO SCH ×3 (07:46→19:53)
[2018-12-08] MEDS: LACTOBACILLUS RHAMNOSUS GG 1 CAPSULE. PO SCH ×2 (07:46→19:53)
[2018-12-08] MEDS: CITALOPRAM 20 MG TABLET. PO SCH (07:46)
[2018-12-08] MEDS: levoFLOXacin 500 MG TABLET PO SCH (07:47)
[2018-12-08] MEDS: TRIAMTERENE/HCTZ 37.5/25MG TABLET. PO SCH (07:47)
[2018-12-08] MEDS: SENNOSIDES/DOCUSATE 8.6/50MG TABLET. PO SCH ×2 (07:47→19:51)
[2018-12-08] MEDS: POLYETHYLENE GLYCOL 3350 17 GM PACKET. PO SCH (07:47)
[2018-12-08] MEDS: ACETAMINOPHEN 325 MG TABLET PO SCH ×4 (07:48→19:54)
[2018-12-08] MEDS: EZETIMIBE 10 MG TABLET PO SCH (07:49)
[2018-12-08] MEDS: CHOLECALCIFEROL (VITAMIN D3) 1,000 UNIT TABLET PO SCH (07:49)
[2018-12-08] MEDS: SELENIUM SULFIDE 1% TOPICAL SHAMPOO 207ML BOTTLE. TP SCH (07:52)
[2018-12-08] MEDS: PROPRANOLOL 20 MG TABLET. PO SCH ×2 (07:53→19:56)
[2018-12-08] MEDS: PANTOPRAZOLE 40 MG TABLET. PO SCH ×2 (11:48→17:16)
[2018-12-08 16:16] VITALS: BP 124/62
[2018-12-08] MEDS: LURASIDONE 40 MG TABLET. PO SCH (17:17)
[2018-12-08] MEDS: DIVALPROEX ER 500 MG TAB.ER.24H PO SCH (19:53)
[2018-12-08] MEDS: traZODone 100 MG TABLET. PO SCH (19:53)
[2018-12-08] MEDS: risperiDONE 1 MG TABLET. PO SCH (19:53)
[2018-12-08] MEDS: GABAPENTIN 100 MG CAPSULE. PO SCH (19:54)
[2018-12-08] MEDS: TAMSULOSIN 0.4 MG CAP.ER.24H. PO SCH (19:54)
[2018-12-08] MEDS: ZOLPIDEM 5 MG TABLET. PO SCH (21:06)
--- NOTE | 2018-12-08 22:30 | PDOC ---
Exam Note: John Note: Please also refer to the separate dictated note~for this date of service dictated separately.~Patient seen individually. Discussed the patient with Nursing staff reviewed the chart.~Reviewed interim history and current functioning. Reviewed vital signs,~Labs/ Radiology~and current medications noted below. Continue current treatment with the changes noted in the dictated addendum note Assessment: Vital Signs/I&O: Vital Signs Date Time Temp Pulse Resp B/P (MAP) Pulse Ox O2 Delivery O2 Flow Rate FiO2 12/08/18 19:56 61 124/62 12/08/18 16:16 97.2 18 98 12/07/18 06:16 Room Air I & O 12/07/18 12/07/18 12/08/18 14:59 22:59 06:59 Intake Total 480 ml 240 ml 120 ml Balance 480 ml 240 ml 120 ml Current Medications: Meds: Current Medications Medications (Trade) Dose Ordered Sig/Russel Route PRN Reason Start Time Stop Time Status Last Admin Dose Admin Lurasidone HCl (Latuda) 80 mg QEVNG PO 12/08/18 18:00 12/08/18 17:17 I have reviewed the current psychotropics carefully including drug interactions. Risk benefit ratio favors no change other than as noted in my dictated progress note. Diagnosis: Problems: (1) Impulse control disorder (2) Mild cognitive impairment (3) Anxiety disorder (4) Schizoaffective disorder, chronic condition with acute exacerbation (5) Schizoaffective disorder, bipolar type (6) Bipolar 1 disorder RADHA JARA MD Dec 08, 2018 22:30
[2018-12-09] MEDS: LEVOTHYROXINE 50 MCG TABLET PO SCH (04:58)
[2018-12-09 05:58] VITALS: BP 119/73
[2018-12-09] MEDS: CHOLECALCIFEROL (VITAMIN D3) 1,000 UNIT TABLET PO SCH (08:19)
[2018-12-09] MEDS: EZETIMIBE 10 MG TABLET PO SCH (08:19)
[2018-12-09] MEDS: DOCUSATE SODIUM 100 MG CAPSULE PO SCH ×2 (08:19→20:15)
[2018-12-09] MEDS: TRIAMTERENE/HCTZ 37.5/25MG TABLET. PO SCH (08:19)
[2018-12-09] MEDS: metFORMIN 500 MG TABLET PO SCH ×2 (08:19→17:03)
[2018-12-09] MEDS: ASPIRIN ENTERIC COATED 81 MG TABLET.DR. PO SCH (08:19)
[2018-12-09] MEDS: levoFLOXacin 500 MG TABLET PO SCH (08:19)
[2018-12-09] MEDS: SENNOSIDES/DOCUSATE 8.6/50MG TABLET. PO SCH ×2 (08:19→20:19)
[2018-12-09] MEDS: VENLAFAXINE 50 MG TABLET. PO SCH ×3 (08:19→20:19)
[2018-12-09] MEDS: LACTOBACILLUS RHAMNOSUS GG 1 CAPSULE. PO SCH ×2 (08:19→20:15)
[2018-12-09] MEDS: POLYETHYLENE GLYCOL 3350 17 GM PACKET. PO SCH (08:20)
[2018-12-09] MEDS: POLYVINYL ALCOHOL/POVIDONE/PF OPHTH SOLUTION DROPERETTE. OU SCH ×2 (08:20→20:15)
[2018-12-09] MEDS: ACETAMINOPHEN 325 MG TABLET PO SCH ×4 (08:20→20:20)
[2018-12-09] MEDS: PROPRANOLOL 20 MG TABLET. PO SCH ×2 (08:32→20:20)
[2018-12-09] MEDS: FLUTICASONE 50MCG/NASAL SPRAY 16GM BOTTLE. NS SCH (08:32)
[2018-12-09] MEDS: TRIAMTERENE 50 MG PO SCH (09:00)
[2018-12-09] MEDS: PANTOPRAZOLE 40 MG TABLET. PO SCH ×2 (12:15→17:05)
--- NOTE | 2018-12-09 14:28 | PN ---
DATE: 12/07/2018 This late entry 12/07/2018 covers elements not covered in the initial note. SUBJECTIVE: I met with the patient in the evening. The patient slept 5-3/4 hours previous night. He was somewhat paranoid earlier in the day, but I had a very lengthy conversation with him in the evening. Reviewed his history, circumstances prompting admission, the need for him to be able to ignore certain situations at the [facility]. The nursing staff indicates that apparently at one point he used to be quite high functioning and the clothes he has in his closet are quite "fancy." Later in the day, he has been doing better. REVIEW OF SYSTEMS: Ambulation impaired, in a wheelchair. No CV, , pulmonary, eye system symptoms on review. I met with him in his room at length. MENTAL STATUS EXAM: Reasonably oriented. Speech is coherent, less pressured. Abstraction fair, computation impaired, language function intact, attention span short. Mood and affect remain somewhat grandiose, but less lability evident. LABORATORY DATA: Reviewed. No suicidal or homicidal ideation. IMPRESSION: Bipolar 1 disorder, mixed with psychotic features; schizoaffective disorder, bipolar type, mixed. Rest unchanged. PLAN: Continue current psychotropics. We have initiated Risperdal, increased the trazodone for insomnia, reduced the Latuda to 80 mg a day. We may need to discontinue the Celexa as he is on the Effexor as well. Continue Depakote, level is therapeutic at 64. Rest unchanged. RADHA JARA MD DR: CECILIA/addie JOB#: [id number] / [id number]
[2018-12-09 16:14] VITALS: BP 136/78
[2018-12-09] MEDS: LURASIDONE 40 MG TABLET. PO SCH (17:04)
[2018-12-09] MEDS: DIVALPROEX ER 500 MG TAB.ER.24H PO SCH (20:15)
[2018-12-09] MEDS: GABAPENTIN 100 MG CAPSULE. PO SCH (20:15)
[2018-12-09] MEDS: risperiDONE 1 MG TABLET. PO SCH (20:19)
[2018-12-09] MEDS: traZODone 100 MG TABLET. PO SCH (20:19)
[2018-12-09] MEDS: ZOLPIDEM 5 MG TABLET. PO SCH (20:19)
[2018-12-09] MEDS: TAMSULOSIN 0.4 MG CAP.ER.24H. PO SCH (20:19)
[2018-12-09] MEDS: traZODone 100 MG TABLET. PO PRN (21:29)
[2018-12-09] MEDS: ZOLPIDEM 5 MG TABLET. PO PRN (21:30)
--- NOTE | 2018-12-09 22:38 | PDOC ---
Exam Note: John Note: Please also refer to the separate dictated note~for this date of service dictated separately.~Patient seen individually. Discussed the patient with Nursing staff reviewed the chart.~Reviewed interim history and current functioning. Reviewed vital signs,~Labs/ Radiology~and current medications noted below. Continue current treatment with the changes noted in the dictated addendum note Assessment: Vital Signs/I&O: Vital Signs Date Time Temp Pulse Resp B/P (MAP) Pulse Ox O2 Delivery O2 Flow Rate FiO2 12/09/18 20:20 69 136/78 12/09/18 16:14 97.6 18 97 12/09/18 05:58 Room Air I & O 12/08/18 12/08/18 12/09/18 14:59 22:59 06:59 Intake Total 840 ml 340 ml Balance 840 ml 340 ml Labs: Laboratory Tests Test 12/09/18 07:46 Glucose (Fingerstick) 86 mg/dL (70-99) Current Medications: I have reviewed the current psychotropics carefully including drug interactions. Risk benefit ratio favors no change other than as noted in my dictated progress note. Diagnosis: Problems: (1) Anxiety disorder (2) Schizoaffective disorder, chronic condition with acute exacerbation (3) Schizoaffective disorder, bipolar type (4) Bipolar 1 disorder (5) Impulse control disorder (6) Mild cognitive impairment RADHA JARA MD Dec 09, 2018 22:38
--- NOTE | 2018-12-10 04:24 | PN ---
DATE: 12/08/2018 PSYCHIATRIC PROGRESS NOTE This late entry 12/08/2018 covers elements not covered in my initial note. SUBJECTIVE: I met with the patient in the evening of 12/08/2018. The patient slept 6-3/4 hours previous night. He has been in the wheelchair, reading the Bible as I met with him, had a good day per nursing staff. REVIEW OF SYSTEMS: No CV, , pulmonary, eye system symptoms on review. MENTAL STATUS EXAM: The patient is reasonably oriented. Speech is coherent, abstraction fair, computation impaired, language function intact, attention span short. Mood and affect remain somewhat withdrawn, anxious at times. LABORATORY DATA: Reviewed. IMPRESSION: Unchanged from my initial note. PLAN: The patient is on a combination of Effexor and Celexa. We will stop Celexa and maintain rest of the psychotropics, Latuda, Depakote, Ambien, trazodone, and Risperdal. Valproic acid level therapeutic at 64. RADHA JARA MD DR: CECILIA/addie JOB#: [id number] / [id number]
[2018-12-10 05:51] VITALS: BP 117/70
[2018-12-10] MEDS: LEVOTHYROXINE 50 MCG TABLET PO SCH (05:55)
[2018-12-10] MEDS: FLUTICASONE 50MCG/NASAL SPRAY 16GM BOTTLE. NS SCH (07:33)
[2018-12-10] MEDS: VENLAFAXINE 50 MG TABLET. PO SCH ×3 (07:34→20:47)
[2018-12-10] MEDS: ACETAMINOPHEN 325 MG TABLET PO SCH ×4 (07:34→20:59)
[2018-12-10] MEDS: EZETIMIBE 10 MG TABLET PO SCH (07:34)
[2018-12-10] MEDS: CHOLECALCIFEROL (VITAMIN D3) 1,000 UNIT TABLET PO SCH (07:34)
[2018-12-10] MEDS: metFORMIN 500 MG TABLET PO SCH ×2 (07:34→16:30)
[2018-12-10] MEDS: levoFLOXacin 500 MG TABLET PO SCH (07:34)
[2018-12-10] MEDS: DOCUSATE SODIUM 100 MG CAPSULE PO SCH ×3 (07:34→20:47)
[2018-12-10] MEDS: LACTOBACILLUS RHAMNOSUS GG 1 CAPSULE. PO SCH ×2 (07:34→20:47)
[2018-12-10] MEDS: TRIAMTERENE/HCTZ 37.5/25MG TABLET. PO SCH (07:35)
[2018-12-10] MEDS: ASPIRIN ENTERIC COATED 81 MG TABLET.DR. PO SCH (07:35)
[2018-12-10] MEDS: POLYVINYL ALCOHOL/POVIDONE/PF OPHTH SOLUTION DROPERETTE. OU SCH ×2 (07:35→21:00)
[2018-12-10] MEDS: POLYETHYLENE GLYCOL 3350 17 GM PACKET. PO SCH (07:35)
[2018-12-10] MEDS: TRIAMTERENE 50 MG PO SCH (07:35)
[2018-12-10] MEDS: PROPRANOLOL 20 MG TABLET. PO SCH ×2 (07:35→20:59)
[2018-12-10] MEDS: SENNOSIDES/DOCUSATE 8.6/50MG TABLET. PO SCH ×2 (07:36→20:59)
[2018-12-10] MEDS: PANTOPRAZOLE 40 MG TABLET. PO SCH ×2 (12:58→16:29)
[2018-12-10 16:18] VITALS: BP 145/69
[2018-12-10] MEDS: LURASIDONE 40 MG TABLET. PO SCH (16:31)
[2018-12-10] MEDS: TAMSULOSIN 0.4 MG CAP.ER.24H. PO SCH (20:47)
[2018-12-10] MEDS: risperiDONE 1 MG TABLET. PO SCH (20:47)
[2018-12-10] MEDS: GABAPENTIN 100 MG CAPSULE. PO SCH (20:47)
[2018-12-10] MEDS: traZODone 100 MG TABLET. PO SCH (20:47)
[2018-12-10] MEDS: DIVALPROEX ER 500 MG TAB.ER.24H PO SCH (20:48)
[2018-12-10] MEDS: ZOLPIDEM 5 MG TABLET. PO SCH (20:54)
--- NOTE | 2018-12-10 22:12 | PDOC ---
Exam Note: John Note: Please also refer to the separate dictated note~for this date of service dictated separately.~Patient seen individually. Discussed the patient with Nursing staff reviewed the chart.~Reviewed interim history and current functioning. Reviewed vital signs,~Labs/ Radiology~and current medications noted below. Continue current treatment with the changes noted in the dictated addendum note Assessment: Vital Signs/I&O: Vital Signs Date Time Temp Pulse Resp B/P (MAP) Pulse Ox O2 Delivery O2 Flow Rate FiO2 12/10/18 20:59 75 145/69 12/10/18 16:18 97.8 16 97 12/09/18 05:58 Room Air I & O 12/09/18 12/09/18 12/10/18 15:00 23:00 07:00 Intake Total 600 ml 240 ml 120 ml Balance 600 ml 240 ml 120 ml Labs: Laboratory Tests Test 12/10/18 07:30 12/10/18 12:11 Glucose (Fingerstick) 87 mg/dL (70-99) 96 mg/dL (70-99) Current Medications: I have reviewed the current psychotropics carefully including drug interactions. Risk benefit ratio favors no change other than as noted in my dictated progress note. Diagnosis: Problems: (1) Anxiety disorder (2) Schizoaffective disorder, chronic condition with acute exacerbation (3) Schizoaffective disorder, bipolar type (4) Bipolar 1 disorder (5) Impulse control disorder (6) Mild cognitive impairment RADHA JARA MD Dec 10, 2018 22:12
--- NOTE | 2018-12-10 22:36 | PN ---
DATE: 12/09/2018 PSYCHIATRIC PROGRESS NOTE. This late entry of 12/09/2018 covers the elements not covered in my initial note. SUBJECTIVE: I met with the patient in the evening at some length. The patient slept 7-1/4 hours previous night. He has been pleasant, cooperative. Elida, the activity therapist spent about 45 minutes with the patient and indicated he was extremely appropriate with no clear psychotic symptoms evident. He was cooperative with physical therapy and occupational therapy. REVIEW OF SYSTEMS: Ambulation impaired, in wheelchair. No CV, , pulmonary, eye system symptoms on review. He again had his Bible by his side and was reading it. MENTAL STATUS EXAM: Reasonably oriented. Speech is coherent, abstraction fair, computation somewhat impaired, language function intact, attention span fair. Mood and affect is improved. LABORATORY DATA: Reviewed. IMPRESSION: Bipolar 1 disorder, mixed with psychotic features; anxiety disorder, unspecified. Rest unchanged. PLAN: Valproic acid level therapeutic at 64, continue Depakote ER 1500 mg p.o. at bedtime, Risperdal 1 mg at bedtime, Effexor is 50 mg t.i.d., Latuda reduced to 80 mg at bedtime, Ambien p.r.n. He is on 2 atypical antipsychotics and Latuda mainly for the depressive symptoms of his bipolar mood disorder, Risperdal as an atypical antipsychotic and for now, we will continue these unchanged with ultimate plan to taper off the Latuda. RADHA JARA MD DR: CECILIA/addie JOB#: [id number] / [id number]
[2018-12-11] MEDS: LEVOTHYROXINE 50 MCG TABLET PO SCH (05:51)
[2018-12-11 06:06] VITALS: BP 119/55
[2018-12-11] MEDS: CHOLECALCIFEROL (VITAMIN D3) 1,000 UNIT TABLET PO SCH (08:19)
[2018-12-11] MEDS: levoFLOXacin 500 MG TABLET PO SCH (08:19)
[2018-12-11] MEDS: ACETAMINOPHEN 325 MG TABLET PO SCH ×4 (08:19→19:49)
[2018-12-11] MEDS: ASPIRIN ENTERIC COATED 81 MG TABLET.DR. PO SCH (08:20)
[2018-12-11] MEDS: LACTOBACILLUS RHAMNOSUS GG 1 CAPSULE. PO SCH ×2 (08:20→19:49)
[2018-12-11] MEDS: metFORMIN 500 MG TABLET PO SCH ×2 (08:20→17:13)
[2018-12-11] MEDS: POLYETHYLENE GLYCOL 3350 17 GM PACKET. PO SCH (08:20)
[2018-12-11] MEDS: SENNOSIDES/DOCUSATE 8.6/50MG TABLET. PO SCH ×3 (08:21→19:51)
[2018-12-11] MEDS: VENLAFAXINE 50 MG TABLET. PO SCH ×3 (08:24→19:49)
[2018-12-11] MEDS: DOCUSATE SODIUM 100 MG CAPSULE PO SCH ×2 (08:24→19:50)
[2018-12-11] MEDS: EZETIMIBE 10 MG TABLET PO SCH (08:24)
[2018-12-11] MEDS: FLUTICASONE 50MCG/NASAL SPRAY 16GM BOTTLE. NS SCH (08:25)
[2018-12-11] MEDS: POLYVINYL ALCOHOL/POVIDONE/PF OPHTH SOLUTION DROPERETTE. OU SCH ×2 (08:27→19:48)
[2018-12-11 08:48] VITALS: BP 129/77
[2018-12-11] MEDS: PROPRANOLOL 20 MG TABLET. PO SCH ×2 (08:53→19:52)
[2018-12-11] MEDS: SELENIUM SULFIDE 1% TOPICAL SHAMPOO 207ML BOTTLE. TP SCH (09:00)
[2018-12-11] MEDS: PANTOPRAZOLE 40 MG TABLET. PO SCH ×2 (11:40→17:12)
[2018-12-11 16:13] VITALS: BP 112/67
[2018-12-11] MEDS: LURASIDONE 40 MG TABLET. PO SCH (17:12)
[2018-12-11] MEDS: GABAPENTIN 100 MG CAPSULE. PO SCH (19:49)
[2018-12-11] MEDS: DIVALPROEX ER 500 MG TAB.ER.24H PO SCH (19:49)
[2018-12-11] MEDS: traZODone 100 MG TABLET. PO SCH (19:49)
[2018-12-11] MEDS: ZOLPIDEM 5 MG TABLET. PO SCH (19:50)
[2018-12-11] MEDS: risperiDONE 1 MG TABLET. PO SCH (19:50)
[2018-12-11] MEDS: TAMSULOSIN 0.4 MG CAP.ER.24H. PO SCH (19:50)
--- NOTE | 2018-12-11 22:17 | PDOC ---
Exam Note: John Note: Please also refer to the separate dictated note~for this date of service dictated separately.~Patient seen individually. Discussed the patient with Nursing staff reviewed the chart.~Reviewed interim history and current functioning. Reviewed vital signs,~Labs/ Radiology~and current medications noted below. Continue current treatment with the changes noted in the dictated addendum note Assessment: Vital Signs/I&O: Vital Signs Date Time Temp Pulse Resp B/P (MAP) Pulse Ox O2 Delivery O2 Flow Rate FiO2 12/11/18 19:52 60 112/67 12/11/18 16:13 97.8 20 95 Room Air I & O 12/10/18 12/10/18 12/11/18 14:59 22:59 06:59 Intake Total 840 ml 240 ml 120 ml Balance 840 ml 240 ml 120 ml Labs: Laboratory Tests Test 12/11/18 07:15 Glucose (Fingerstick) 82 mg/dL (70-99) Current Medications: I have reviewed the current psychotropics carefully including drug interactions. Risk benefit ratio favors no change other than as noted in my dictated progress note. Diagnosis: Problems: (1) Anxiety disorder (2) Schizoaffective disorder, chronic condition with acute exacerbation (3) Schizoaffective disorder, bipolar type (4) Bipolar 1 disorder (5) Impulse control disorder (6) Mild cognitive impairment RADHA JARA MD Dec 11, 2018 22:16
[2018-12-11] MEDS: traZODone 100 MG TABLET. PO PRN (22:29)
[2018-12-11] MEDS: ZOLPIDEM 5 MG TABLET. PO PRN (22:29)
[2018-12-12 05:41] VITALS: BP 117/72
[2018-12-12] MEDS: LEVOTHYROXINE 50 MCG TABLET PO SCH (05:47)
[2018-12-12] MEDS: FLUTICASONE 50MCG/NASAL SPRAY 16GM BOTTLE. NS SCH (07:46)
[2018-12-12] MEDS: POLYVINYL ALCOHOL/POVIDONE/PF OPHTH SOLUTION DROPERETTE. OU SCH ×2 (07:46→20:15)
[2018-12-12] MEDS: ASPIRIN ENTERIC COATED 81 MG TABLET.DR. PO SCH (07:46)
[2018-12-12] MEDS: metFORMIN 500 MG TABLET PO SCH ×2 (07:46→16:15)
[2018-12-12] MEDS: PROPRANOLOL 20 MG TABLET. PO SCH ×2 (07:47→20:16)
[2018-12-12] MEDS: VENLAFAXINE 50 MG TABLET. PO SCH ×3 (07:47→20:13)
[2018-12-12] MEDS: levoFLOXacin 500 MG TABLET PO SCH (07:47)
[2018-12-12] MEDS: LACTOBACILLUS RHAMNOSUS GG 1 CAPSULE. PO SCH ×2 (07:47→20:13)
[2018-12-12] MEDS: DOCUSATE SODIUM 100 MG CAPSULE PO SCH ×2 (07:47→20:14)
[2018-12-12] MEDS: SENNOSIDES/DOCUSATE 8.6/50MG TABLET. PO SCH ×2 (07:48→20:15)
[2018-12-12] MEDS: ACETAMINOPHEN 325 MG TABLET PO SCH ×4 (07:48→20:14)
[2018-12-12] MEDS: CHOLECALCIFEROL (VITAMIN D3) 1,000 UNIT TABLET PO SCH (07:48)
[2018-12-12] MEDS: POLYETHYLENE GLYCOL 3350 17 GM PACKET. PO SCH (07:48)
[2018-12-12] MEDS: EZETIMIBE 10 MG TABLET PO SCH (07:50)
[2018-12-12] MEDS: PANTOPRAZOLE 40 MG TABLET. PO SCH ×2 (11:13→16:15)
[2018-12-12 15:33] VITALS: BP 136/87
[2018-12-12] MEDS: LURASIDONE 40 MG TABLET. PO SCH (18:11)
[2018-12-12] MEDS: DIVALPROEX ER 500 MG TAB.ER.24H PO SCH (20:13)
[2018-12-12] MEDS: risperiDONE 1 MG TABLET. PO SCH (20:14)
[2018-12-12] MEDS: TAMSULOSIN 0.4 MG CAP.ER.24H. PO SCH (20:14)
[2018-12-12] MEDS: traZODone 100 MG TABLET. PO SCH (20:14)
[2018-12-12] MEDS: GABAPENTIN 100 MG CAPSULE. PO SCH (20:37)
[2018-12-12] MEDS ORDERED: NON FORMULARY ITEM PO SCH (21:00)
[2018-12-12] MEDS: TEMAZEPAM 7.5 MG CAPSULE PO PRN ×2 (21:24→22:59)
[2018-12-12] MEDS: traZODone 100 MG TABLET. PO PRN (21:43)
--- NOTE | 2018-12-12 22:29 | PDOC ---
Exam Note: John Note: Please also refer to the separate dictated note~for this date of service dictated separately.~Patient seen individually. Discussed the patient with Nursing staff reviewed the chart.~Reviewed interim history and current functioning. Reviewed vital signs,~Labs/ Radiology~and current medications noted below. Continue current treatment with the changes noted in the dictated addendum note Assessment: Vital Signs/I&O: Vital Signs Date Time Temp Pulse Resp B/P (MAP) Pulse Ox O2 Delivery O2 Flow Rate FiO2 12/12/18 20:16 84 146/79 12/12/18 15:33 97.6 19 98 12/12/18 05:41 Room Air I & O 12/11/18 12/11/18 12/12/18 14:59 22:59 06:59 Intake Total 720 ml 480 ml 120 ml Balance 720 ml 480 ml 120 ml Labs: Laboratory Tests Test 12/12/18 07:07 Glucose (Fingerstick) 106 mg/dL (70-99) H Current Medications: Meds: Current Medications Medications (Trade) Dose Ordered Sig/Russel Route PRN Reason Start Time Stop Time Status Last Admin Dose Admin Temazepam (Restoril) 7.5 mg PRN QHS PRN PO INSOMNIA 12/12/18 21:00 12/12/18 21:24 Olanzapine (ZyPREXA ZYDIS) 2.5 mg PRN Q2HR PRN PO AGGITATION/PSYCHOSIS 12/12/18 18:30 12/12/18 18:31 I have reviewed the current psychotropics carefully including drug interactions. Risk benefit ratio favors no change other than as noted in my dictated progress note. Diagnosis: Problems: (1) Anxiety disorder (2) Schizoaffective disorder, chronic condition with acute exacerbation (3) Schizoaffective disorder, bipolar type (4) Bipolar 1 disorder (5) Impulse control disorder (6) Mild cognitive impairment RADHA JARA MD Dec 12, 2018 22:29
--- NOTE | 2018-12-12 23:48 | PN ---
DATE: 12/10/2018 PSYCHIATRIC PROGRESS NOTE This late entry 12/10/2018 covers elements not covered in my initial note. SUBJECTIVE: I met with the patient in the evening. The patient slept 6 hours previous night. He did well in the morning, pleasant, cooperative. Trazodone was repeated previous night, seemed to help along with the Ambien. In the evening, he was fixated on calling his son and then making threats towards social service staff, upset that one of the other demented patients had come into his bed oblivious of what they were doing. I processed this at length with him. REVIEW OF SYSTEMS: Ambulation impaired in wheelchair. No CV, , pulmonary, eye system symptoms on review. He does appear intermittently anxious, agitated. MENTAL STATUS EXAM: Reasonably oriented. Speech is coherent, abstraction fair, computation impaired, language function intact, attention span short. Mood and affect remain somewhat labile. He had his bible with him, but fairly appropriate and was also reading a book by Leo Clifton. IMPRESSION: Unchanged from initial note. PLAN: No change from initial note. Continue Latuda, Depakote, Ambien, trazodone, Risperdal, and Effexor at current dosage. RADHA JARA MD DR: CECILIA/addie JOB#: [id number] / [id number]
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
[2018-12-13] MEDS: IBUPROFEN 400 MG TABLET. PO PRN (01:33)
[2018-12-13 05:26] VITALS: BP 114/68
[2018-12-13] MEDS: LEVOTHYROXINE 50 MCG TABLET PO SCH (06:03)
[2018-12-13] MEDS: metFORMIN 500 MG TABLET PO SCH ×2 (07:59→16:55)
[2018-12-13] MEDS: ASPIRIN ENTERIC COATED 81 MG TABLET.DR. PO SCH (07:59)
[2018-12-13] MEDS: DOCUSATE SODIUM 100 MG CAPSULE PO SCH ×2 (08:00→19:25)
[2018-12-13] MEDS: LACTOBACILLUS RHAMNOSUS GG 1 CAPSULE. PO SCH ×2 (08:00→19:25)
[2018-12-13] MEDS: POLYVINYL ALCOHOL/POVIDONE/PF OPHTH SOLUTION DROPERETTE. OU SCH ×2 (08:00→19:25)
[2018-12-13] MEDS: FLUTICASONE 50MCG/NASAL SPRAY 16GM BOTTLE. NS SCH (08:00)
[2018-12-13] MEDS: VENLAFAXINE 50 MG TABLET. PO SCH ×3 (08:00→19:26)
[2018-12-13] MEDS: PROPRANOLOL 20 MG TABLET. PO SCH ×2 (08:01→19:28)
[2018-12-13] MEDS: CHOLECALCIFEROL (VITAMIN D3) 1,000 UNIT TABLET PO SCH (08:01)
[2018-12-13] MEDS: POLYETHYLENE GLYCOL 3350 17 GM PACKET. PO SCH (08:01)
[2018-12-13] MEDS: SENNOSIDES/DOCUSATE 8.6/50MG TABLET. PO SCH ×2 (08:01→20:05)
[2018-12-13] MEDS: EZETIMIBE 10 MG TABLET PO SCH (08:01)
[2018-12-13] MEDS: levoFLOXacin 500 MG TABLET PO SCH (08:01)
[2018-12-13] MEDS: ACETAMINOPHEN 325 MG TABLET PO SCH ×4 (08:01→19:28)
[2018-12-13] MEDS: SELENIUM SULFIDE 1% TOPICAL SHAMPOO 207ML BOTTLE. TP SCH (08:02)
[2018-12-13 09:03] LABS: BASO # 0.1 x10^3/uL (0.0-0.2); BASO % 1 % (0-3); EOS # 0.2 x10^3/uL (0.0-0.7); EOS % 3 % (0-3); HEMATOCRIT 41.9 % (39.0-53.0); HEMOGLOBIN 13.9 g/dL (13.0-17.5); LYMPH # 2.1 x10^3/uL (1.0-4.8); LYMPH % 36 % (24-48); MEAN CORPUSCULAR HEMOGLOBIN 31 pg (25-35); MEAN CORPUSCULAR HGB CONC 33 g/dL (31-37); MEAN CORPUSCULAR VOLUME 94 fL (79-100); MONO # 0.5 x10^3/uL (0.0-1.1); MONO % 9 % (0-9); NEUT % 51 % (31-73); PLATELET COUNT 229 x10^3/uL (140-400); RED BLOOD COUNT 4.46 x10^6/uL (4.30-5.70); RED CELL DISTRIBUTION WIDTH 14.3 % (11.5-14.5); WHITE BLOOD COUNT 5.9 x10^3/uL (4.0-11.0)
[2018-12-13 09:14] LABS: ALBUMIN 3.5 g/dL (3.4-5.0); ALBUMIN/GLOBULIN RATIO 1.1 (1.0-1.7); CALCIUM 8.9 mg/dL (8.5-10.1); CREATININE 1.2 mg/dL (0.7-1.3); GFR 59.5; POTASSIUM 3.9 mmol/L (3.5-5.1); TOTAL BILIRUBIN 0.3 mg/dL (0.2-1.0); TOTAL PROTEIN 6.6 g/dL (6.4-8.2)
[2018-12-13] MEDS: PANTOPRAZOLE 40 MG TABLET. PO SCH ×2 (11:52→16:55)
[2018-12-13 16:17] VITALS: BP 142/72
[2018-12-13] MEDS: LURASIDONE 40 MG TABLET. PO SCH (16:55)
[2018-12-13] MEDS: traZODone 100 MG TABLET. PO SCH (19:26)
[2018-12-13] MEDS: DIVALPROEX ER 500 MG TAB.ER.24H PO SCH (19:26)
[2018-12-13] MEDS: TAMSULOSIN 0.4 MG CAP.ER.24H. PO SCH (19:26)
[2018-12-13] MEDS: GABAPENTIN 100 MG CAPSULE. PO SCH (19:28)
[2018-12-13] MEDS: risperiDONE 1 MG TABLET. PO SCH (19:28)
--- NOTE | 2018-12-13 22:57 | PDOC ---
Exam Note: John Note: Please also refer to the separate dictated note~for this date of service dictated separately.~Patient seen individually. Discussed the patient with Nursing staff reviewed the chart.~Reviewed interim history and current functioning. Reviewed vital signs,~Labs/ Radiology~and current medications noted below. Continue current treatment with the changes noted in the dictated addendum note Assessment: Vital Signs/I&O: Vital Signs Date Time Temp Pulse Resp B/P (MAP) Pulse Ox O2 Delivery O2 Flow Rate FiO2 12/13/18 19:28 68 142/72 12/13/18 16:17 97.3 18 96 12/12/18 05:41 Room Air I & O 12/12/18 12/12/18 12/13/18 15:00 23:00 07:00 Intake Total 960 ml 720 ml Balance 960 ml 720 ml Labs: Laboratory Tests Test 12/13/18 07:28 12/13/18 08:54 Glucose (Fingerstick) 78 mg/dL (70-99) White Blood Count 5.9 x10^3/uL (4.0-11.0) Red Blood Count 4.46 x10^6/uL (4.30-5.70) Hemoglobin 13.9 g/dL (13.0-17.5) Hematocrit 41.9 % (39.0-53.0) Mean Corpuscular Volume 94 fL (79-100) Mean Corpuscular Hemoglobin 31 pg (25-35) Mean Corpuscular Hemoglobin Concent 33 g/dL (31-37) Red Cell Distribution Width 14.3 % (11.5-14.5) Platelet Count 229 x10^3/uL (140-400) Neutrophils (%) (Auto) 51 % (31-73) Lymphocytes (%) (Auto) 36 % (24-48) Monocytes (%) (Auto) 9 % (0-9) Eosinophils (%) (Auto) 3 % (0-3) Basophils (%) (Auto) 1 % (0-3) Neutrophils # (Auto) 3.0 x10^3uL (1.8-7.7) Lymphocytes # (Auto) 2.1 x10^3/uL (1.0-4.8) Monocytes # (Auto) 0.5 x10^3/uL (0.0-1.1) Eosinophils # (Auto) 0.2 x10^3/uL (0.0-0.7) Basophils # (Auto) 0.1 x10^3/uL (0.0-0.2) Sodium Level 136 mmol/L (136-145) Potassium Level 3.9 mmol/L (3.5-5.1) Chloride Level 97 mmol/L (98-107) L Carbon Dioxide Level 32 mmol/L (21-32) Anion Gap 7 (6-14) Blood Urea Nitrogen 12 mg/dL (8-26) Creatinine 1.2 mg/dL (0.7-1.3) Estimated GFR (Cockcroft-Gault) 59.5 BUN/Creatinine Ratio 10 (6-20) Glucose Level 144 mg/dL (70-99) H Calcium Level 8.9 mg/dL (8.5-10.1) Total Bilirubin 0.3 mg/dL (0.2-1.0) Aspartate Amino Transferase (AST) 28 U/L (15-37) Alanine Aminotransferase (ALT) 45 U/L (16-63) Alkaline Phosphatase 52 U/L (46-116) Total Protein 6.6 g/dL (6.4-8.2) Albumin 3.5 g/dL (3.4-5.0) Albumin/Globulin Ratio 1.1 (1.0-1.7) Current Medications: I have reviewed the current psychotropics carefully including drug interactions. Risk benefit ratio favors no change other than as noted in my dictated progress note. Diagnosis: Problems: (1) Anxiety disorder (2) Schizoaffective disorder, chronic condition with acute exacerbation (3) Schizoaffective disorder, bipolar type (4) Urinary tract infection (5) Bipolar 1 disorder (6) Type 2 diabetes mellitus (7) Lumbar stenosis (8) Sleep apnea (9) CAD (coronary artery disease) (10) HTN (hypertension) (11) Hypothyroidism (12) Impulse control disorder (13) Mild cognitive impairment RADHA JARA MD Dec 13, 2018 22:57
[2018-12-13] MEDS: TEMAZEPAM 7.5 MG CAPSULE PO PRN (23:51)
[2018-12-14] MEDS: LEVOTHYROXINE 50 MCG TABLET PO SCH (05:25)
[2018-12-14 05:42] VITALS: BP 118/77
[2018-12-14] MEDS: ASPIRIN ENTERIC COATED 81 MG TABLET.DR. PO SCH (07:52)
[2018-12-14] MEDS: metFORMIN 500 MG TABLET PO SCH ×2 (07:52→16:58)
[2018-12-14] MEDS: POLYVINYL ALCOHOL/POVIDONE/PF OPHTH SOLUTION DROPERETTE. OU SCH ×2 (07:53→19:09)
[2018-12-14] MEDS: FLUTICASONE 50MCG/NASAL SPRAY 16GM BOTTLE. NS SCH (07:53)
[2018-12-14] MEDS: DOCUSATE SODIUM 100 MG CAPSULE PO SCH ×2 (07:53→19:10)
[2018-12-14] MEDS: LACTOBACILLUS RHAMNOSUS GG 1 CAPSULE. PO SCH ×2 (07:53→19:09)
[2018-12-14] MEDS: VENLAFAXINE 50 MG TABLET. PO SCH ×3 (07:54→19:09)
[2018-12-14] MEDS: PROPRANOLOL 20 MG TABLET. PO SCH ×2 (07:56→19:10)
[2018-12-14] MEDS: levoFLOXacin 500 MG TABLET PO SCH (08:02)
[2018-12-14] MEDS: POLYETHYLENE GLYCOL 3350 17 GM PACKET. PO SCH (08:02)
[2018-12-14] MEDS: SENNOSIDES/DOCUSATE 8.6/50MG TABLET. PO SCH ×2 (08:02→19:10)
[2018-12-14] MEDS: CHOLECALCIFEROL (VITAMIN D3) 1,000 UNIT TABLET PO SCH (08:03)
[2018-12-14] MEDS: EZETIMIBE 10 MG TABLET PO SCH (08:03)
[2018-12-14] MEDS: ACETAMINOPHEN 325 MG TABLET PO SCH ×4 (08:03→19:09)
[2018-12-14] MEDS: PANTOPRAZOLE 40 MG TABLET. PO SCH ×2 (11:40→16:58)
[2018-12-14 16:58] VITALS: BP 131/78
[2018-12-14] MEDS: LURASIDONE 40 MG TABLET. PO SCH ×2 (16:59→19:12)
[2018-12-14] MEDS: risperiDONE 1 MG TABLET. PO SCH (19:09)
[2018-12-14] MEDS: GABAPENTIN 100 MG CAPSULE. PO SCH (19:10)
[2018-12-14] MEDS: DIVALPROEX ER 500 MG TAB.ER.24H PO SCH (19:11)
[2018-12-14] MEDS: TAMSULOSIN 0.4 MG CAP.ER.24H. PO SCH (19:11)
[2018-12-14] MEDS: traZODone 100 MG TABLET. PO SCH (19:11)
[2018-12-14] MEDS: TEMAZEPAM 7.5 MG CAPSULE PO PRN ×2 (19:42→20:17)
--- NOTE | 2018-12-14 22:05 | PDOC ---
Exam Note: John Note: Please also refer to the separate dictated note~for this date of service dictated separately.~Patient seen individually. Discussed the patient with Nursing staff reviewed the chart.~Reviewed interim history and current functioning. Reviewed vital signs,~Labs/ Radiology~and current medications noted below. Continue current treatment with the changes noted in the dictated addendum note Assessment: Vital Signs/I&O: Vital Signs Date Time Temp Pulse Resp B/P (MAP) Pulse Ox O2 Delivery O2 Flow Rate FiO2 12/14/18 19:10 65 131/78 12/14/18 16:58 97.8 16 98 12/14/18 05:42 Room Air I & O 12/13/18 12/13/18 12/14/18 15:00 23:00 07:00 Intake Total 960 ml 360 ml Balance 960 ml 360 ml Labs: Laboratory Tests Test 12/14/18 07:14 Glucose (Fingerstick) 80 mg/dL (70-99) Current Medications: I have reviewed the current psychotropics carefully including drug interactions. Risk benefit ratio favors no change other than as noted in my dictated progress note. Diagnosis: Problems: (1) Anxiety disorder (2) Schizoaffective disorder, chronic condition with acute exacerbation (3) Schizoaffective disorder, bipolar type (4) Urinary tract infection (5) Bipolar 1 disorder (6) Impulse control disorder (7) Mild cognitive impairment RADHA JARA MD Dec 14, 2018 22:05
[2018-12-15] MEDS: LEVOTHYROXINE 50 MCG TABLET PO SCH (05:04)
[2018-12-15 05:56] VITALS: BP 107/66
[2018-12-15] MEDS: metFORMIN 500 MG TABLET PO SCH ×3 (08:01→19:43)
[2018-12-15] MEDS: ASPIRIN ENTERIC COATED 81 MG TABLET.DR. PO SCH (08:01)
[2018-12-15] MEDS: FLUTICASONE 50MCG/NASAL SPRAY 16GM BOTTLE. NS SCH (08:03)
[2018-12-15] MEDS: POLYVINYL ALCOHOL/POVIDONE/PF OPHTH SOLUTION DROPERETTE. OU SCH ×2 (08:04→19:41)
[2018-12-15] MEDS: VENLAFAXINE 50 MG TABLET. PO SCH ×3 (08:04→19:44)
[2018-12-15] MEDS: DOCUSATE SODIUM 100 MG CAPSULE PO SCH ×2 (08:04→19:42)
[2018-12-15] MEDS: LACTOBACILLUS RHAMNOSUS GG 1 CAPSULE. PO SCH ×2 (08:04→19:42)
[2018-12-15] MEDS: SENNOSIDES/DOCUSATE 8.6/50MG TABLET. PO SCH ×2 (08:06→19:42)
[2018-12-15] MEDS: POLYETHYLENE GLYCOL 3350 17 GM PACKET. PO SCH (08:06)
[2018-12-15] MEDS: PROPRANOLOL 20 MG TABLET. PO SCH ×2 (08:06→19:43)
[2018-12-15] MEDS: CHOLECALCIFEROL (VITAMIN D3) 1,000 UNIT TABLET PO SCH (08:07)
[2018-12-15] MEDS: SELENIUM SULFIDE 1% TOPICAL SHAMPOO 207ML BOTTLE. TP SCH (08:07)
[2018-12-15] MEDS: EZETIMIBE 10 MG TABLET PO SCH (08:07)
[2018-12-15] MEDS: ACETAMINOPHEN 325 MG TABLET PO SCH ×4 (08:08→19:42)
[2018-12-15] MEDS: PANTOPRAZOLE 40 MG TABLET. PO SCH ×3 (10:55→19:42)
--- NOTE | 2018-12-15 13:39 | PN ---
DATE: 12/14/2018 This late entry 12/14/2018 covers elements not covered in my initial note. SUBJECTIVE: I met with the patient in the evening of 12/14/2018. The patient slept 7 hours previous night. He has been somewhat defiant, angry, irritable, demanding, Lunesta, but that is not available at the pharmacy and he is on Restoril in place of this. REVIEW OF SYSTEMS: Ambulation impaired, in wheelchair. No CV, , pulmonary, eye, ENT system symptoms on review. MENTAL STATUS EXAM: The patient is reasonably oriented. Speech is coherent, has some latency. Abstraction fair, computation impaired, language function intact, attention span short. Mood and affect remain somewhat labile. LABORATORY DATA: Reviewed. IMPRESSION: Bipolar disorder, mixed with psychotic features; anxiety disorder, unspecified. Rest unchanged. PLAN: The patient did receive p.r.n. trazodone last night. He is requesting 15 mg of Restoril and we will go ahead and do this. Continue rest unchanged. May need to increase Risperdal for his mood lability, psychotic symptoms in due course. MAN Watson JARA MD DR: CECILIA/addie JOB#: [id number] / [id number]
[2018-12-15 15:35] VITALS: BP 135/82
--- NOTE | 2018-12-15 17:14 | PN ---
DATE: 12/12/2018 PSYCHIATRIC PROGRESS NOTE This late entry 12/12/2018 covers elements not covered in my initial note. SUBJECTIVE: I met with the patient in the evening of 12/12/2018. The patient slept just 3 hours previous night and states he did better on Lunesta in the past. We will change the Ambien to Lunesta 1 mg at bedtime p.r.n., september repeat x 1. REVIEW OF SYSTEMS: Ambulation impaired, in wheelchair. No CV, , pulmonary, eyes, ENT system symptoms on review. MENTAL STATUS EXAM: Reasonably oriented. Speech has some latency, coherent. Abstraction fair, computation impaired, language function intact. Mood and affect, somewhat anxious, at times labile, other times somewhat withdrawn. LABORATORY DATA: Reviewed. IMPRESSION: Unchanged from initial note. PLAN: No change from initial note other than noted above. MAN Watson JARA MD DR: CECILIA/addie JOB#: [id number] / [id number]
--- NOTE | 2018-12-15 18:42 | PN ---
DATE: PSYCHIATRIC PROGRESS NOTE This late entry 12/13/2018 covers elements not covered in my initial note. SUBJECTIVE: I met with the patient in the evening. The patient slept 6-1/2 hours previous night. He is alert, oriented x 4. Compliant with medications, pleasant, cooperative, less anxious and labile. REVIEW OF SYSTEMS: Ambulation impaired, in wheelchair. No CV, , pulmonary, eye, ENT system symptoms on review. MENTAL STATUS EXAMINATION: Oriented reasonably. Speech is coherent, abstraction fair, computation impaired, language function intact, attention span short. Mood and affect, lability is improved. Paranoia is better. LABORATORY DATA: Reviewed. IMPRESSION: Unchanged from initial note. PLAN: No change from initial note. Maintain Depakote ER, which we have changed to 1500 mg at bedtime, Latuda 80 mg at bedtime, trazodone 100 mg at bedtime, may repeat x 1, Effexor 50 mg t.i.d., Risperdal 1 mg at bedtime. Valproic acid level therapeutic at 64. MAN Watson JARA MD DR: CECILIA/addie JOB#: [id number] / [id number]
[2018-12-15] MEDS: GABAPENTIN 100 MG CAPSULE. PO SCH (19:42)
[2018-12-15] MEDS: TAMSULOSIN 0.4 MG CAP.ER.24H. PO SCH (19:43)
[2018-12-15] MEDS: risperiDONE 1 MG TABLET. PO SCH (19:43)
[2018-12-15] MEDS: traZODone 100 MG TABLET. PO SCH (19:44)
[2018-12-15] MEDS: DIVALPROEX ER 500 MG TAB.ER.24H PO SCH (19:44)
[2018-12-15] MEDS: TEMAZEPAM 7.5 MG CAPSULE PO PRN ×2 (19:54→19:55)
--- NOTE | 2018-12-15 22:25 | PDOC ---
Exam Note: John Note: Please also refer to the separate dictated note~for this date of service dictated separately.~Patient seen individually. Discussed the patient with Nursing staff reviewed the chart.~Reviewed interim history and current functioning. Reviewed vital signs,~Labs/ Radiology~and current medications noted below. Continue current treatment with the changes noted in the dictated addendum note Assessment: Vital Signs/I&O: Vital Signs Date Time Temp Pulse Resp B/P (MAP) Pulse Ox O2 Delivery O2 Flow Rate FiO2 12/15/18 19:43 62 135/82 12/15/18 15:35 97.6 18 99 12/14/18 05:42 Room Air I & O 12/14/18 12/14/18 12/15/18 14:59 22:59 06:59 Intake Total 600 ml 340 ml Balance 600 ml 340 ml Labs: Laboratory Tests Test 12/15/18 08:14 Glucose (Fingerstick) 79 mg/dL (70-99) Current Medications: I have reviewed the current psychotropics carefully including drug interactions. Risk benefit ratio favors no change other than as noted in my dictated progress note. Diagnosis: Problems: (1) Anxiety disorder (2) Schizoaffective disorder, chronic condition with acute exacerbation (3) Schizoaffective disorder, bipolar type (4) Bipolar 1 disorder (5) Impulse control disorder (6) Mild cognitive impairment RADHA JARA MD Dec 15, 2018 22:25
[2018-12-15] MEDS: IBUPROFEN 400 MG TABLET. PO PRN (22:37)
[2018-12-16] MEDS: LEVOTHYROXINE 50 MCG TABLET PO SCH (04:03)
[2018-12-16 04:14] VITALS: BP 133/64
[2018-12-16] MEDS: ACETAMINOPHEN 325 MG TABLET PO SCH ×4 (09:37→19:19)
[2018-12-16] MEDS: metFORMIN 500 MG TABLET PO SCH (09:37)
[2018-12-16] MEDS: CHOLECALCIFEROL (VITAMIN D3) 1,000 UNIT TABLET PO SCH (09:38)
[2018-12-16] MEDS: POLYETHYLENE GLYCOL 3350 17 GM PACKET. PO SCH (09:38)
[2018-12-16] MEDS: VENLAFAXINE 50 MG TABLET. PO SCH ×3 (09:38→19:40)
[2018-12-16] MEDS: ASPIRIN ENTERIC COATED 81 MG TABLET.DR. PO SCH (09:38)
[2018-12-16] MEDS: DOCUSATE SODIUM 100 MG CAPSULE PO SCH ×2 (09:38→19:16)
[2018-12-16] MEDS: POLYVINYL ALCOHOL/POVIDONE/PF OPHTH SOLUTION DROPERETTE. OU SCH ×2 (09:38→19:16)
[2018-12-16] MEDS: LACTOBACILLUS RHAMNOSUS GG 1 CAPSULE. PO SCH ×2 (09:38→19:17)
[2018-12-16] MEDS: EZETIMIBE 10 MG TABLET PO SCH (09:38)
[2018-12-16] MEDS: SENNOSIDES/DOCUSATE 8.6/50MG TABLET. PO SCH ×2 (09:38→19:18)
[2018-12-16] MEDS: FLUTICASONE 50MCG/NASAL SPRAY 16GM BOTTLE. NS SCH (09:40)
[2018-12-16 10:05] VITALS: BP 131/55
[2018-12-16] MEDS: PROPRANOLOL 20 MG TABLET. PO SCH ×2 (11:40→19:40)
[2018-12-16 15:47] VITALS: BP 166/96
[2018-12-16] MEDS: PANTOPRAZOLE 40 MG TABLET. PO SCH (17:24)
[2018-12-16] MEDS: risperiDONE 0.5 MG TABLET. PO SCH (17:24)
[2018-12-16] MEDS: LURASIDONE 40 MG TABLET. PO SCH (17:27)
[2018-12-16] MEDS: traZODone 100 MG TABLET. PO SCH (19:17)
[2018-12-16] MEDS: DIVALPROEX ER 500 MG TAB.ER.24H PO SCH (19:17)
[2018-12-16] MEDS: TAMSULOSIN 0.4 MG CAP.ER.24H. PO SCH (19:18)
[2018-12-16] MEDS: GABAPENTIN 100 MG CAPSULE. PO SCH (19:18)
[2018-12-16] MEDS: risperiDONE 1 MG TABLET. PO SCH (19:19)
[2018-12-16] MEDS: MIRTAZAPINE 7.5 MG TABLET. PO SCH (19:40)
[2018-12-16] MEDS: TEMAZEPAM 7.5 MG CAPSULE PO PRN (19:41)
[2018-12-16] MEDS: IBUPROFEN 400 MG TABLET. PO PRN (20:08)
--- NOTE | 2018-12-16 22:24 | PDOC ---
Exam Note: John Note: Please also refer to the separate dictated note~for this date of service dictated separately.~Patient seen individually. Discussed the patient with Nursing staff reviewed the chart.~Reviewed interim history and current functioning. Reviewed vital signs,~Labs/ Radiology~and current medications noted below. Continue current treatment with the changes noted in the dictated addendum note Assessment: Vital Signs/I&O: Vital Signs Date Time Temp Pulse Resp B/P (MAP) Pulse Ox O2 Delivery O2 Flow Rate FiO2 12/16/18 19:41 57 166/96 12/16/18 15:47 97.3 16 97 12/16/18 10:05 Room Air I & O 12/15/18 12/15/18 12/16/18 15:00 23:00 07:00 Intake Total 600 ml 600 ml Balance 600 ml 600 ml Labs: Laboratory Tests Test 12/16/18 07:32 Glucose (Fingerstick) 87 mg/dL (70-99) Current Medications: Meds: Current Medications Medications (Trade) Dose Ordered Sig/Russel Route PRN Reason Start Time Stop Time Status Last Admin Dose Admin Risperidone (RisperDAL) 0.5 mg 1700 PO 12/16/18 17:00 12/16/18 17:25 Venlafaxine HCl (Effexor) 50 mg BID PO 12/16/18 21:00 12/16/18 19:41 Mirtazapine (Remeron) 7.5 mg QHS PO 12/16/18 21:00 12/16/18 19:41 I have reviewed the current psychotropics carefully including drug interactions. Risk benefit ratio favors no change other than as noted in my dictated progress note. Diagnosis: Problems: (1) Anxiety disorder (2) Schizoaffective disorder, chronic condition with acute exacerbation (3) Schizoaffective disorder, bipolar type (4) Impulse control disorder (5) Mild cognitive impairment (6) Bipolar 1 disorder RADHA JARA MD Dec 16, 2018 22:23
[2018-12-17 05:37] VITALS: BP 146/86
[2018-12-17] MEDS: LEVOTHYROXINE 50 MCG TABLET PO SCH (05:38)
--- NOTE | 2018-12-17 05:42 | PN ---
DATE: 12/15/2018 PSYCHIATRIC PROGRESS NOTE This late entry, 12/15/2018, covers elements not covered in my initial note. SUBJECTIVE: I met with the patient evening of 12/15/2018. The patient slept 5 hours previous night. He refused his bedtime meds the previous evening and was quite irritable, demanding with staff, later took the Restoril in place of Lunesta. During the day on 12/15/2018, he is doing a little better. REVIEW OF SYSTEMS: Ambulation impaired, in wheelchair. No CV, , pulmonary, eye system symptoms on review. MENTAL STATUS EXAM: Reasonably oriented. Speech is coherent, can be a little pressured at times. Abstraction fair, computation impaired, language function intact, attention span short. Mood and affect remain somewhat labile, anxious, paranoid. LABORATORY DATA: Reviewed. IMPRESSION: Unchanged from initial note. PLAN: No change from initial note. We will continue Depakote, Latuda, Effexor along with Risperdal 1 mg at bedtime and start Risperdal 0.5 mg at 3 p.m. and use Restoril p.r.n. for insomnia. RADHA JARA MD DR: CECILIA/addie JOB#: [id number] / [id number]
[2018-12-17] MEDS: EZETIMIBE 10 MG TABLET PO SCH (08:00)
[2018-12-17] MEDS: metFORMIN 500 MG TABLET PO SCH ×2 (08:00→16:25)
[2018-12-17] MEDS: CHOLECALCIFEROL (VITAMIN D3) 1,000 UNIT TABLET PO SCH (08:00)
[2018-12-17] MEDS: SENNOSIDES/DOCUSATE 8.6/50MG TABLET. PO SCH ×2 (08:00→19:40)
[2018-12-17] MEDS: ACETAMINOPHEN 325 MG TABLET PO SCH ×4 (08:00→19:40)
[2018-12-17] MEDS: POLYVINYL ALCOHOL/POVIDONE/PF OPHTH SOLUTION DROPERETTE. OU SCH ×2 (08:01→19:41)
[2018-12-17] MEDS: LACTOBACILLUS RHAMNOSUS GG 1 CAPSULE. PO SCH ×2 (08:01→19:40)
[2018-12-17] MEDS: ASPIRIN ENTERIC COATED 81 MG TABLET.DR. PO SCH (08:01)
[2018-12-17] MEDS: PROPRANOLOL 20 MG TABLET. PO SCH ×2 (08:01→19:42)
[2018-12-17] MEDS: DOCUSATE SODIUM 100 MG CAPSULE PO SCH ×2 (08:02→19:40)
[2018-12-17] MEDS: VENLAFAXINE 50 MG TABLET. PO SCH ×2 (08:02→19:41)
[2018-12-17] MEDS: POLYETHYLENE GLYCOL 3350 17 GM PACKET. PO SCH (08:02)
[2018-12-17] MEDS: SELENIUM SULFIDE 1% TOPICAL SHAMPOO 207ML BOTTLE. TP SCH (08:05)
[2018-12-17] MEDS: FLUTICASONE 50MCG/NASAL SPRAY 16GM BOTTLE. NS SCH (08:11)
[2018-12-17] MEDS: PANTOPRAZOLE 40 MG TABLET. PO SCH ×2 (11:08→16:25)
[2018-12-17 15:36] VITALS: BP 176/72
[2018-12-17] MEDS: risperiDONE 0.5 MG TABLET. PO SCH (16:25)
[2018-12-17] MEDS: LURASIDONE 40 MG TABLET. PO SCH (18:24)
[2018-12-17] MEDS: GABAPENTIN 100 MG CAPSULE. PO SCH (19:40)
[2018-12-17] MEDS: risperiDONE 1 MG TABLET. PO SCH (19:40)
[2018-12-17] MEDS: TAMSULOSIN 0.4 MG CAP.ER.24H. PO SCH (19:41)
[2018-12-17] MEDS: DIVALPROEX ER 500 MG TAB.ER.24H PO SCH (19:41)
[2018-12-17] MEDS: traZODone 100 MG TABLET. PO SCH (19:41)
[2018-12-17] MEDS: MIRTAZAPINE 7.5 MG TABLET. PO SCH (19:41)
--- NOTE | 2018-12-17 20:47 | PDOC ---
Exam Note: John Note: Please also refer to the separate dictated note~for this date of service dictated separately.~Patient seen individually. Discussed the patient with Nursing staff reviewed the chart.~Reviewed interim history and current functioning. Reviewed vital signs,~Labs/ Radiology~and current medications noted below. Continue current treatment with the changes noted in the dictated addendum note Assessment: Vital Signs/I&O: Vital Signs Date Time Temp Pulse Resp B/P (MAP) Pulse Ox O2 Delivery O2 Flow Rate FiO2 12/17/18 19:42 61 176/72 12/17/18 15:36 97.1 16 98 12/17/18 05:37 Room Air I & O 12/16/18 12/16/18 12/17/18 15:00 23:00 07:00 Intake Total 600 ml 480 ml Balance 600 ml 480 ml Labs: Laboratory Tests Test 12/17/18 07:35 Glucose (Fingerstick) 88 mg/dL (70-99) Current Medications: Meds: Current Medications Medications (Trade) Dose Ordered Sig/Russel Route PRN Reason Start Time Stop Time Status Last Admin Dose Admin Venlafaxine HCl (Effexor) 50 mg BID PO 12/16/18 21:00 12/17/18 19:42 Mirtazapine (Remeron) 7.5 mg QHS PO 12/16/18 21:00 12/17/18 19:42 I have reviewed the current psychotropics carefully including drug interactions. Risk benefit ratio favors no change other than as noted in my dictated progress note. Diagnosis: Problems: (1) Anxiety disorder (2) Schizoaffective disorder, chronic condition with acute exacerbation (3) Schizoaffective disorder, bipolar type (4) Urinary tract infection (5) Bipolar 1 disorder (6) Impulse control disorder (7) Mild cognitive impairment RADHA JARA MD Dec 17, 2018 20:47
[2018-12-18] MEDS: TEMAZEPAM 7.5 MG CAPSULE PO PRN (00:53)
--- NOTE | 2018-12-18 04:56 | PN ---
DATE: 12/16/2018 PSYCHIATRIC PROGRESS NOTE This late entry 12/16/2018 covers elements not covered in my initial note. SUBJECTIVE: I met with the patient in the evening of 12/16/2018 at some length. The patient slept just 2 hours previous night, but he states his roommate kept waking him up all night. He has been calmer during the day on 12/16/2018, more compliant with his treatment. REVIEW OF SYSTEMS: Ambulation impaired with walker. No CV, , pulmonary, eye, ENT system symptoms on review. MENTAL STATUS EXAM: Reasonably oriented. Speech is coherent, abstraction fair, computation impaired, language function intact, attention span short. He continues to be somewhat abrasive at times, but more redirectable. LABORATORY DATA: Reviewed. IMPRESSION: Bipolar 1 disorder, mixed with psychotic features, personality disorder; anxiety disorder, unspecified. PLAN: Continue current psychotropics from initial note. We will reduce the Effexor from 50 mg 3 times a day down to twice a day to help reduce any exacerbation of mary with the Effexor and we will add Remeron 7.5 mg p.o. at bedtime to help with insomnia. Maintain Depakote at current dosage, level therapeutic at 64, Latuda 80 mg a day, trazodone for insomnia, Risperdal 0.5 mg at 1700, 1 mg at bedtime, Restoril along with Zyprexa p.r.n. MAN Watson JARA MD DR: CECILIA/addie JOB#: [id number] / [id number]
[2018-12-18] MEDS: LEVOTHYROXINE 50 MCG TABLET PO SCH (06:00)
[2018-12-18 06:03] VITALS: BP 154/77
[2018-12-18] MEDS: CHOLECALCIFEROL (VITAMIN D3) 1,000 UNIT TABLET PO SCH (08:01)
[2018-12-18] MEDS: EZETIMIBE 10 MG TABLET PO SCH (08:01)
[2018-12-18] MEDS: metFORMIN 500 MG TABLET PO SCH ×2 (08:01→17:00)
[2018-12-18] MEDS: ASPIRIN ENTERIC COATED 81 MG TABLET.DR. PO SCH (08:01)
[2018-12-18] MEDS: LACTOBACILLUS RHAMNOSUS GG 1 CAPSULE. PO SCH ×2 (08:01→19:40)
[2018-12-18] MEDS: DOCUSATE SODIUM 100 MG CAPSULE PO SCH ×2 (08:02→19:39)
[2018-12-18] MEDS: SENNOSIDES/DOCUSATE 8.6/50MG TABLET. PO SCH ×2 (08:02→19:39)
[2018-12-18] MEDS: VENLAFAXINE 50 MG TABLET. PO SCH ×2 (08:02→19:39)
[2018-12-18] MEDS: POLYVINYL ALCOHOL/POVIDONE/PF OPHTH SOLUTION DROPERETTE. OU SCH ×2 (08:02→19:39)
[2018-12-18] MEDS: POLYETHYLENE GLYCOL 3350 17 GM PACKET. PO SCH (08:03)
[2018-12-18] MEDS: FLUTICASONE 50MCG/NASAL SPRAY 16GM BOTTLE. NS SCH (08:05)
[2018-12-18] MEDS: PROPRANOLOL 20 MG TABLET. PO SCH ×3 (08:06→19:39)
[2018-12-18] MEDS: ACETAMINOPHEN 325 MG TABLET PO SCH ×4 (08:09→19:41)
[2018-12-18] MEDS: PANTOPRAZOLE 40 MG TABLET. PO SCH ×2 (13:02→16:57)
[2018-12-18 16:01] VITALS: BP 167/71
[2018-12-18] MEDS: risperiDONE 0.5 MG TABLET. PO SCH (16:59)
[2018-12-18] MEDS: LURASIDONE 40 MG TABLET. PO SCH (17:02)
[2018-12-18] MEDS: MIRTAZAPINE 7.5 MG TABLET. PO SCH (19:39)
[2018-12-18] MEDS: GABAPENTIN 100 MG CAPSULE. PO SCH (19:40)
[2018-12-18] MEDS: DIVALPROEX ER 500 MG TAB.ER.24H PO SCH (19:40)
[2018-12-18] MEDS: traZODone 100 MG TABLET. PO SCH (19:40)
[2018-12-18] MEDS: risperiDONE 1 MG TABLET. PO SCH (19:40)
[2018-12-18] MEDS: TAMSULOSIN 0.4 MG CAP.ER.24H. PO SCH (19:40)
[2018-12-18] MEDS: TEMAZEPAM 15 MG CAPSULE PO SCH (19:41)
--- NOTE | 2018-12-18 22:18 | PDOC ---
Exam Note: John Note: Please also refer to the separate dictated note~for this date of service dictated separately.~Patient seen individually. Discussed the patient with Nursing staff reviewed the chart.~Reviewed interim history and current functioning. Reviewed vital signs,~Labs/ Radiology~and current medications noted below. Continue current treatment with the changes noted in the dictated addendum note Assessment: Vital Signs/I&O: Vital Signs Date Time Temp Pulse Resp B/P (MAP) Pulse Ox O2 Delivery O2 Flow Rate FiO2 12/18/18 19:42 60 167/71 12/18/18 16:01 97.0 16 97 12/18/18 06:03 Room Air I & O 12/17/18 12/17/18 12/18/18 15:00 23:00 07:00 Intake Total 840 ml 600 ml Balance 840 ml 600 ml Labs: Laboratory Tests Test 12/18/18 07:28 Glucose (Fingerstick) 92 mg/dL (70-99) Current Medications: Meds: Current Medications Medications (Trade) Dose Ordered Sig/Russel Route PRN Reason Start Time Stop Time Status Last Admin Dose Admin Temazepam (Restoril) 15 mg QHS PO 12/18/18 21:00 12/18/18 19:42 I have reviewed the current psychotropics carefully including drug interactions. Risk benefit ratio favors no change other than as noted in my dictated progress note. Diagnosis: Problems: (1) Anxiety disorder (2) Schizoaffective disorder, chronic condition with acute exacerbation (3) Schizoaffective disorder, bipolar type (4) Urinary tract infection (5) Bipolar 1 disorder (6) Impulse control disorder (7) Mild cognitive impairment RADHA JARA MD Dec 18, 2018 22:18
[2018-12-19] MEDS: traZODone 100 MG TABLET. PO PRN (01:56)
[2018-12-19] MEDS: LEVOTHYROXINE 50 MCG TABLET PO SCH (05:08)
[2018-12-19] MEDS: IBUPROFEN 400 MG TABLET. PO PRN ×3 (05:23→19:31)
[2018-12-19] MEDS: METHYL SALICYLATE/MENTHOL TOPICAL OINTMENT 29GM TUBE. TP PRN ×3 (05:28→19:34)
[2018-12-19 05:51] VITALS: BP 142/73
[2018-12-19] MEDS: ASPIRIN ENTERIC COATED 81 MG TABLET.DR. PO SCH (07:26)
[2018-12-19] MEDS: DOCUSATE SODIUM 100 MG CAPSULE PO SCH ×2 (07:26→19:29)
[2018-12-19] MEDS: LACTOBACILLUS RHAMNOSUS GG 1 CAPSULE. PO SCH ×2 (07:26→19:32)
[2018-12-19] MEDS: metFORMIN 500 MG TABLET PO SCH ×2 (07:26→16:12)
[2018-12-19] MEDS: CHOLECALCIFEROL (VITAMIN D3) 1,000 UNIT TABLET PO SCH (07:27)
[2018-12-19] MEDS: EZETIMIBE 10 MG TABLET PO SCH (07:27)
[2018-12-19] MEDS: ACETAMINOPHEN 325 MG TABLET PO SCH ×4 (07:27→19:30)
[2018-12-19] MEDS: POLYVINYL ALCOHOL/POVIDONE/PF OPHTH SOLUTION DROPERETTE. OU SCH ×2 (07:27→19:32)
[2018-12-19] MEDS: SENNOSIDES/DOCUSATE 8.6/50MG TABLET. PO SCH ×2 (07:27→19:31)
[2018-12-19] MEDS: VENLAFAXINE 50 MG TABLET. PO SCH ×2 (07:27→19:34)
[2018-12-19] MEDS: POLYETHYLENE GLYCOL 3350 17 GM PACKET. PO SCH (07:28)
[2018-12-19] MEDS: FLUTICASONE 50MCG/NASAL SPRAY 16GM BOTTLE. NS SCH (07:28)
[2018-12-19 08:11] VITALS: BP 119/72
[2018-12-19] MEDS: SELENIUM SULFIDE 1% TOPICAL SHAMPOO 207ML BOTTLE. TP SCH (10:49)
[2018-12-19] MEDS: PROPRANOLOL 20 MG TABLET. PO SCH ×2 (10:49→19:29)
[2018-12-19] MEDS: PANTOPRAZOLE 40 MG TABLET. PO SCH ×2 (11:58→16:12)
[2018-12-19 15:48] VITALS: BP 166/74
[2018-12-19] MEDS: risperiDONE 0.5 MG TABLET. PO SCH (16:13)
[2018-12-19] MEDS: LURASIDONE 40 MG TABLET. PO SCH (19:04)
[2018-12-19] MEDS: traZODone 100 MG TABLET. PO SCH (19:29)
[2018-12-19] MEDS: TEMAZEPAM 15 MG CAPSULE PO SCH (19:30)
[2018-12-19] MEDS: MIRTAZAPINE 7.5 MG TABLET. PO SCH (19:31)
[2018-12-19] MEDS: DIVALPROEX ER 500 MG TAB.ER.24H PO SCH (19:31)
[2018-12-19] MEDS: risperiDONE 1 MG TABLET. PO SCH (19:31)
[2018-12-19] MEDS: TAMSULOSIN 0.4 MG CAP.ER.24H. PO SCH (19:32)
[2018-12-19] MEDS: GABAPENTIN 100 MG CAPSULE. PO SCH (19:32)
--- NOTE | 2018-12-19 22:05 | PN ---
DATE: 12/17/2018 This late entry of 12/17/2018 covers the elements not covered in my initial note. SUBJECTIVE: I met with the patient in the evening of 12/17/2018. The patient slept 7 hours previous night. He did well during the day and previous night. He is attending more groups. He still gets anxious, restless at times, but easier to redirect. REVIEW OF SYSTEMS: Ambulation impaired with walker. No CV, , pulmonary, eye, ENT system symptoms on review. MENTAL STATUS EXAM: Reasonably oriented. Speech is coherent, abstraction fair, computation impaired, language function intact, attention span short. Mood and affect, somewhat anxious at times, labile, but much improved. LABORATORY DATA: Reviewed. IMPRESSION: Unchanged from initial note. PLAN: No change from initial note. MAN Watson JARA MD DR: CECILIA/addie JOB#: [id number] / [id number]
--- NOTE | 2018-12-19 22:07 | PDOC ---
Exam Note: John Note: Please also refer to the separate dictated note~for this date of service dictated separately.~Patient seen individually. Discussed the patient with Nursing staff reviewed the chart.~Reviewed interim history and current functioning. Reviewed vital signs,~Labs/ Radiology~and current medications noted below. Continue current treatment with the changes noted in the dictated addendum note Assessment: Vital Signs/I&O: Vital Signs Date Time Temp Pulse Resp B/P (MAP) Pulse Ox O2 Delivery O2 Flow Rate FiO2 12/19/18 19:34 58 166/74 12/19/18 15:48 97.0 20 97 Room Air I & O 12/18/18 12/18/18 12/19/18 14:59 22:59 06:59 Intake Total 720 ml 360 ml Balance 720 ml 360 ml Labs: Laboratory Tests Test 12/19/18 07:17 Glucose (Fingerstick) 71 mg/dL (70-99) Current Medications: I have reviewed the current psychotropics carefully including drug interactions. Risk benefit ratio favors no change other than as noted in my dictated progress note. Diagnosis: Problems: (1) Anxiety disorder (2) Schizoaffective disorder, chronic condition with acute exacerbation (3) Schizoaffective disorder, bipolar type (4) Urinary tract infection (5) Bipolar 1 disorder (6) Impulse control disorder (7) Mild cognitive impairment RADHA JARA MD Dec 19, 2018 22:07
--- NOTE | 2018-12-19 23:02 | PN ---
DATE: 12/18/2018 PSYCHIATRIC PROGRESS NOTE This late entry 12/18/2018, covers the elements not covered in my initial note. SUBJECTIVE: I met with the patient in the evening of 12/18/2018. The patient was staffed at a treatment team meeting with the entire team in the morning. The patient slept 6 hours. Appetite is 75-100%. He has been calmer, pleasant, less labile and less grandiose. REVIEW OF SYSTEMS: Ambulation impaired, in wheelchair. No CV, , pulmonary, eye system symptoms on review. MENTAL STATUS EXAM: Oriented reasonably. Speech is coherent, abstraction fair, computation impaired, language function intact. Mood and affect is showing improvement. LABORATORY DATA: Reviewed. IMPRESSION: Unchanged from initial note. PLAN: No change from initial note. MAN Watson JARA MD DR: CECILIA/addie JOB#: [id number] / [id number]
[2018-12-20] MEDS: LEVOTHYROXINE 50 MCG TABLET PO SCH (04:57)
[2018-12-20 06:19] VITALS: BP 129/70
[2018-12-20] MEDS: ASPIRIN ENTERIC COATED 81 MG TABLET.DR. PO SCH (08:02)
[2018-12-20] MEDS: metFORMIN 500 MG TABLET PO SCH ×2 (08:02→16:54)
[2018-12-20] MEDS: DOCUSATE SODIUM 100 MG CAPSULE PO SCH ×2 (08:03→19:28)
[2018-12-20] MEDS: POLYVINYL ALCOHOL/POVIDONE/PF OPHTH SOLUTION DROPERETTE. OU SCH ×2 (08:03→19:29)
[2018-12-20] MEDS: LACTOBACILLUS RHAMNOSUS GG 1 CAPSULE. PO SCH ×2 (08:03→19:28)
[2018-12-20] MEDS: VENLAFAXINE 50 MG TABLET. PO SCH ×2 (08:03→19:29)
[2018-12-20] MEDS: FLUTICASONE 50MCG/NASAL SPRAY 16GM BOTTLE. NS SCH (08:03)
[2018-12-20] MEDS: SENNOSIDES/DOCUSATE 8.6/50MG TABLET. PO SCH ×2 (08:12→19:28)
[2018-12-20] MEDS: POLYETHYLENE GLYCOL 3350 17 GM PACKET. PO SCH (08:12)
[2018-12-20] MEDS: PROPRANOLOL 20 MG TABLET. PO SCH ×2 (08:12→19:31)
[2018-12-20] MEDS: ACETAMINOPHEN 325 MG TABLET PO SCH ×4 (08:13→19:28)
[2018-12-20] MEDS: CHOLECALCIFEROL (VITAMIN D3) 1,000 UNIT TABLET PO SCH (08:13)
[2018-12-20] MEDS: EZETIMIBE 10 MG TABLET PO SCH (08:13)
[2018-12-20 09:56] LABS: BASO # 0.1 x10^3/uL (0.0-0.2); BASO % 1 % (0-3); EOS # 0.2 x10^3/uL (0.0-0.7); EOS % 3 % (0-3); HEMATOCRIT 41.8 % (39.0-53.0); HEMOGLOBIN 13.6 g/dL (13.0-17.5); LYMPH # 1.9 x10^3/uL (1.0-4.8); LYMPH % 30 % (24-48); MEAN CORPUSCULAR HEMOGLOBIN 31 pg (25-35); MEAN CORPUSCULAR HGB CONC 33 g/dL (31-37); MEAN CORPUSCULAR VOLUME 94 fL (79-100); MONO # 0.6 x10^3/uL (0.0-1.1); MONO % 10 % (0-9); NEUT # 3.5 x10^3uL (1.8-7.7); NEUT % 56 % (31-73); PLATELET COUNT 215 x10^3/uL (140-400); RED BLOOD COUNT 4.42 x10^6/uL (4.30-5.70); RED CELL DISTRIBUTION WIDTH 14.1 % (11.5-14.5); WHITE BLOOD COUNT 6.3 x10^3/uL (4.0-11.0)
[2018-12-20 10:06] LABS: ALBUMIN 3.4 g/dL (3.4-5.0); ALBUMIN/GLOBULIN RATIO 1.2 (1.0-1.7); CALCIUM 8.7 mg/dL (8.5-10.1); CREATININE 1.1 mg/dL (0.7-1.3); GFR 65.8; POTASSIUM 4.2 mmol/L (3.5-5.1); TOTAL BILIRUBIN 0.3 mg/dL (0.2-1.0); TOTAL PROTEIN 6.2 g/dL (6.4-8.2)
[2018-12-20] MEDS: PANTOPRAZOLE 40 MG TABLET. PO SCH ×2 (11:56→16:54)
[2018-12-20 16:25] VITALS: BP 149/77
[2018-12-20] MEDS: LURASIDONE 40 MG TABLET. PO SCH (16:53)
[2018-12-20] MEDS: risperiDONE 0.5 MG TABLET. PO SCH (16:54)
[2018-12-20] MEDS: GABAPENTIN 100 MG CAPSULE. PO SCH (19:28)
[2018-12-20] MEDS: TAMSULOSIN 0.4 MG CAP.ER.24H. PO SCH (19:28)
[2018-12-20] MEDS: risperiDONE 1 MG TABLET. PO SCH (19:28)
[2018-12-20] MEDS: MIRTAZAPINE 7.5 MG TABLET. PO SCH (19:28)
[2018-12-20] MEDS: TEMAZEPAM 15 MG CAPSULE PO SCH (19:28)
[2018-12-20] MEDS: DIVALPROEX ER 500 MG TAB.ER.24H PO SCH (19:29)
[2018-12-20] MEDS: traZODone 100 MG TABLET. PO SCH (19:29)
[2018-12-20] MEDS: IBUPROFEN 400 MG TABLET. PO PRN (19:31)
[2018-12-20] MEDS: METHYL SALICYLATE/MENTHOL TOPICAL OINTMENT 29GM TUBE. TP PRN (19:31)
--- NOTE | 2018-12-20 23:02 | PDOC ---
Exam Note: John Note: Please also refer to the separate dictated note~for this date of service dictated separately.~Patient seen individually. Discussed the patient with Nursing staff reviewed the chart.~Reviewed interim history and current functioning. Reviewed vital signs,~Labs/ Radiology~and current medications noted below. Continue current treatment with the changes noted in the dictated addendum note Assessment: Vital Signs/I&O: Vital Signs Date Time Temp Pulse Resp B/P (MAP) Pulse Ox O2 Delivery O2 Flow Rate FiO2 12/20/18 19:31 64 149/77 12/20/18 16:25 98.0 20 95 12/20/18 06:19 Room Air I & O 12/19/18 12/19/18 12/20/18 15:00 23:00 07:00 Intake Total 840 ml 360 ml Balance 840 ml 360 ml Labs: Laboratory Tests Test 12/20/18 07:20 12/20/18 09:38 Glucose (Fingerstick) 98 mg/dL (70-99) White Blood Count 6.3 x10^3/uL (4.0-11.0) Red Blood Count 4.42 x10^6/uL (4.30-5.70) Hemoglobin 13.6 g/dL (13.0-17.5) Hematocrit 41.8 % (39.0-53.0) Mean Corpuscular Volume 94 fL (79-100) Mean Corpuscular Hemoglobin 31 pg (25-35) Mean Corpuscular Hemoglobin Concent 33 g/dL (31-37) Red Cell Distribution Width 14.1 % (11.5-14.5) Platelet Count 215 x10^3/uL (140-400) Neutrophils (%) (Auto) 56 % (31-73) Lymphocytes (%) (Auto) 30 % (24-48) Monocytes (%) (Auto) 10 % (0-9) H Eosinophils (%) (Auto) 3 % (0-3) Basophils (%) (Auto) 1 % (0-3) Neutrophils # (Auto) 3.5 x10^3uL (1.8-7.7) Lymphocytes # (Auto) 1.9 x10^3/uL (1.0-4.8) Monocytes # (Auto) 0.6 x10^3/uL (0.0-1.1) Eosinophils # (Auto) 0.2 x10^3/uL (0.0-0.7) Basophils # (Auto) 0.1 x10^3/uL (0.0-0.2) Sodium Level 137 mmol/L (136-145) Potassium Level 4.2 mmol/L (3.5-5.1) Chloride Level 102 mmol/L (98-107) Carbon Dioxide Level 31 mmol/L (21-32) Anion Gap 4 (6-14) L Blood Urea Nitrogen 12 mg/dL (8-26) Creatinine 1.1 mg/dL (0.7-1.3) Estimated GFR (Cockcroft-Gault) 65.8 BUN/Creatinine Ratio 11 (6-20) Glucose Level 123 mg/dL (70-99) H Calcium Level 8.7 mg/dL (8.5-10.1) Total Bilirubin 0.3 mg/dL (0.2-1.0) Aspartate Amino Transferase (AST) 24 U/L (15-37) Alanine Aminotransferase (ALT) 44 U/L (16-63) Alkaline Phosphatase 49 U/L (46-116) Total Protein 6.2 g/dL (6.4-8.2) L Albumin 3.4 g/dL (3.4-5.0) Albumin/Globulin Ratio 1.2 (1.0-1.7) Current Medications: I have reviewed the current psychotropics carefully including drug interactions. Risk benefit ratio favors no change other than as noted in my dictated progress note. Diagnosis: Problems: (1) Anxiety disorder (2) Schizoaffective disorder, chronic condition with acute exacerbation (3) Schizoaffective disorder, bipolar type (4) Bipolar 1 disorder (5) Impulse control disorder (6) Mild cognitive impairment RADHA JARA MD Dec 20, 2018 23:02
[2018-12-21] MEDS: traZODone 100 MG TABLET. PO PRN ×2 (00:53→21:07)
[2018-12-21] MEDS: LEVOTHYROXINE 50 MCG TABLET PO SCH (05:00)
[2018-12-21 05:46] VITALS: BP 145/81
[2018-12-21] MEDS: ASPIRIN ENTERIC COATED 81 MG TABLET.DR. PO SCH (08:03)
[2018-12-21] MEDS: metFORMIN 500 MG TABLET PO SCH ×2 (08:03→16:49)
[2018-12-21] MEDS: FLUTICASONE 50MCG/NASAL SPRAY 16GM BOTTLE. NS SCH (08:03)
[2018-12-21] MEDS: POLYVINYL ALCOHOL/POVIDONE/PF OPHTH SOLUTION DROPERETTE. OU SCH ×2 (08:04→19:43)
[2018-12-21] MEDS: DOCUSATE SODIUM 100 MG CAPSULE PO SCH ×2 (08:04→19:45)
[2018-12-21] MEDS: LACTOBACILLUS RHAMNOSUS GG 1 CAPSULE. PO SCH ×2 (08:04→19:45)
[2018-12-21] MEDS: VENLAFAXINE 50 MG TABLET. PO SCH ×2 (08:05→19:45)
[2018-12-21] MEDS: SENNOSIDES/DOCUSATE 8.6/50MG TABLET. PO SCH ×2 (08:06→19:45)
[2018-12-21] MEDS: PROPRANOLOL 20 MG TABLET. PO SCH ×2 (08:06→19:44)
[2018-12-21] MEDS: POLYETHYLENE GLYCOL 3350 17 GM PACKET. PO SCH (08:06)
[2018-12-21] MEDS: ACETAMINOPHEN 325 MG TABLET PO SCH ×4 (08:07→19:45)
[2018-12-21] MEDS: EZETIMIBE 10 MG TABLET PO SCH (08:07)
[2018-12-21] MEDS: CHOLECALCIFEROL (VITAMIN D3) 1,000 UNIT TABLET PO SCH (08:07)
[2018-12-21] MEDS: SELENIUM SULFIDE 1% TOPICAL SHAMPOO 207ML BOTTLE. TP SCH (08:07)
[2018-12-21] MEDS: PANTOPRAZOLE 40 MG TABLET. PO SCH ×2 (12:00→16:49)
[2018-12-21 16:19] VITALS: BP 153/73
[2018-12-21] MEDS: LURASIDONE 40 MG TABLET. PO SCH (16:49)
[2018-12-21] MEDS: risperiDONE 0.5 MG TABLET. PO SCH (16:49)
[2018-12-21] MEDS: TAMSULOSIN 0.4 MG CAP.ER.24H. PO SCH (19:44)
[2018-12-21] MEDS: GABAPENTIN 100 MG CAPSULE. PO SCH (19:44)
[2018-12-21] MEDS: TEMAZEPAM 15 MG CAPSULE PO SCH (19:44)
[2018-12-21] MEDS: MIRTAZAPINE 7.5 MG TABLET. PO SCH (19:44)
[2018-12-21] MEDS: DIVALPROEX ER 500 MG TAB.ER.24H PO SCH (19:45)
[2018-12-21] MEDS: risperiDONE 1 MG TABLET. PO SCH (19:45)
[2018-12-21] MEDS: traZODone 100 MG TABLET. PO SCH (19:45)
--- NOTE | 2018-12-21 22:22 | PDOC ---
Exam Note: John Note: Please also refer to the separate dictated note~for this date of service dictated separately.~Patient seen individually. Discussed the patient with Nursing staff reviewed the chart.~Reviewed interim history and current functioning. Reviewed vital signs,~Labs/ Radiology~and current medications noted below. Continue current treatment with the changes noted in the dictated addendum note Assessment: Vital Signs/I&O: Vital Signs Date Time Temp Pulse Resp B/P (MAP) Pulse Ox O2 Delivery O2 Flow Rate FiO2 12/21/18 19:46 76 153/73 12/21/18 16:19 98.2 18 99 12/21/18 05:46 Room Air I & O 12/20/18 12/20/18 12/21/18 15:00 23:00 07:00 Intake Total 480 ml 240 ml Balance 480 ml 240 ml Labs: Laboratory Tests Test 12/21/18 07:15 Glucose (Fingerstick) 98 mg/dL (70-99) Current Medications: I have reviewed the current psychotropics carefully including drug interactions. Risk benefit ratio favors no change other than as noted in my dictated progress note. Diagnosis: Problems: (1) Anxiety disorder (2) Schizoaffective disorder, chronic condition with acute exacerbation (3) Schizoaffective disorder, bipolar type (4) Bipolar 1 disorder (5) Impulse control disorder (6) Mild cognitive impairment RADHA JARA MD Dec 21, 2018 22:22
--- NOTE | 2018-12-22 01:43 | PN ---
DATE: 12/19/2018 PSYCHIATRIC PROGRESS NOTE This late entry 12/19/2018, covers elements not covered in my initial note. SUBJECTIVE: I met with the patient in the evening of 12/19/2018. The patient slept 6-1/2 hours previous night. I met with him in his room. He has been calm, pleasant, compliant with medications, less arguing but gets a little irritable at times if his needs are not met fairly quickly. Dr. Tafoya, his outpatient psychiatrist, had called and we shared information on the patient's progress and improvement and the changes in his psychotropics initiated. REVIEW OF SYSTEMS: Ambulation impaired, in wheelchair. No CV, , pulmonary, eye, ENT system symptoms on review. MENTAL STATUS EXAM: Reasonably oriented. Speech is coherent, has some latency. He is hard of hearing. Abstraction fair, computation impaired, language function intact, attention span short. Mood and affect still somewhat withdrawn, at times somewhat labile, but improved. LABORATORY DATA: Reviewed. IMPRESSION: Unchanged from initial note. PLAN: No change from initial note. MAN Watson JARA MD DR: CECILIA/addie JOB#: [id number] / [id number]
[2018-12-22 05:33] VITALS: BP 143/75
[2018-12-22] MEDS: LEVOTHYROXINE 50 MCG TABLET PO SCH (06:18)
[2018-12-22] MEDS: ASPIRIN ENTERIC COATED 81 MG TABLET.DR. PO SCH (07:39)
[2018-12-22] MEDS: POLYVINYL ALCOHOL/POVIDONE/PF OPHTH SOLUTION DROPERETTE. OU SCH ×2 (07:40→20:15)
[2018-12-22] MEDS: VENLAFAXINE 50 MG TABLET. PO SCH ×2 (07:40→20:14)
[2018-12-22] MEDS: LACTOBACILLUS RHAMNOSUS GG 1 CAPSULE. PO SCH ×2 (07:40→20:14)
[2018-12-22] MEDS: metFORMIN 500 MG TABLET PO SCH ×2 (07:40→16:49)
[2018-12-22] MEDS: FLUTICASONE 50MCG/NASAL SPRAY 16GM BOTTLE. NS SCH (07:40)
[2018-12-22] MEDS: DOCUSATE SODIUM 100 MG CAPSULE PO SCH ×2 (07:40→20:13)
[2018-12-22] MEDS: ACETAMINOPHEN 325 MG TABLET PO SCH ×4 (07:42→20:13)
[2018-12-22] MEDS: PROPRANOLOL 20 MG TABLET. PO SCH ×2 (07:42→20:20)
[2018-12-22] MEDS: CHOLECALCIFEROL (VITAMIN D3) 1,000 UNIT TABLET PO SCH (07:42)
[2018-12-22] MEDS: SENNOSIDES/DOCUSATE 8.6/50MG TABLET. PO SCH ×2 (07:42→20:14)
[2018-12-22] MEDS: EZETIMIBE 10 MG TABLET PO SCH (07:42)
[2018-12-22] MEDS: POLYETHYLENE GLYCOL 3350 17 GM PACKET. PO SCH (07:42)
[2018-12-22] MEDS: PANTOPRAZOLE 40 MG TABLET. PO SCH ×2 (12:02→16:49)
[2018-12-22 16:01] VITALS: BP 159/78
[2018-12-22] MEDS: risperiDONE 0.5 MG TABLET. PO SCH (16:49)
[2018-12-22] MEDS: LURASIDONE 40 MG TABLET. PO SCH (16:49)
[2018-12-22] MEDS: IBUPROFEN 400 MG TABLET. PO PRN (18:02)
[2018-12-22] MEDS: TAMSULOSIN 0.4 MG CAP.ER.24H. PO SCH (20:13)
[2018-12-22] MEDS: MIRTAZAPINE 7.5 MG TABLET. PO SCH (20:13)
[2018-12-22] MEDS: GABAPENTIN 100 MG CAPSULE. PO SCH (20:14)
[2018-12-22] MEDS: traZODone 100 MG TABLET. PO SCH (20:14)
[2018-12-22] MEDS: risperiDONE 1 MG TABLET. PO SCH (20:14)
[2018-12-22] MEDS: DIVALPROEX ER 500 MG TAB.ER.24H PO SCH (20:14)
[2018-12-22] MEDS: TEMAZEPAM 15 MG CAPSULE PO SCH (20:19)
--- NOTE | 2018-12-23 00:53 | PN ---
DATE: 12/20/2018 PSYCHIATRIC PROGRESS NOTE This late entry 12/20/2018 covers elements not covered in my initial note. SUBJECTIVE: I met with the patient at length in his room in the evening of 12/20/2018. The patient slept 7 hours previous night. He has been polite, pleasant, and cooperative. No anger outburst noted. He was somewhat complaining about nursing staff interventions and I addressed this with him. REVIEW OF SYSTEMS: Ambulation impaired, in wheelchair. No CV, , pulmonary, eye, ENT system symptoms on review. MENTAL STATUS EXAM: Oriented reasonably. Speech is coherent, abstraction fair, computation impaired, language function intact, attention span short. Mood and affect appears improved, less labile. LABORATORY DATA: Reviewed. IMPRESSION: Unchanged from initial note. PLAN: No change from initial note. MAN Watson JARA MD DR: CECILIA/addie JOB#: [id number] / [id number]
[2018-12-23] MEDS: LEVOTHYROXINE 50 MCG TABLET PO SCH (05:33)
[2018-12-23 05:35] VITALS: BP 143/77
--- NOTE | 2018-12-23 07:03 | PN ---
DATE: 12/21/2018 PSYCHIATRIC PROGRESS NOTE This late entry 12/21/2018 covers elements not covered in my initial note. SUBJECTIVE: I met with the patient at length in his room in the evening. The patient slept 6-1/4 hours previous night. He is somewhat obsessive about not sleeping well at night, even though he does seem to be documenting good sleep. REVIEW OF SYSTEMS: Ambulation impaired, in wheelchair. No CV, , pulmonary, eye, ENT system symptoms on review. MENTAL STATUS EXAM: Reasonably oriented. Speech is coherent, abstraction fair, computation impaired, language function intact, attention span short. Mood and affect is improved. LABORATORY DATA: Reviewed. IMPRESSION: Unchanged from initial note. PLAN: No change from initial note. He is much less irritable. RADHA JARA MD DR: CECILIA/addie JOB#: [id number] / [id number]
[2018-12-23] MEDS: ASPIRIN ENTERIC COATED 81 MG TABLET.DR. PO SCH (07:43)
[2018-12-23] MEDS: POLYVINYL ALCOHOL/POVIDONE/PF OPHTH SOLUTION DROPERETTE. OU SCH ×2 (07:43→20:02)
[2018-12-23] MEDS: metFORMIN 500 MG TABLET PO SCH ×2 (07:43→17:11)
[2018-12-23] MEDS: LACTOBACILLUS RHAMNOSUS GG 1 CAPSULE. PO SCH ×2 (07:44→20:01)
[2018-12-23] MEDS: VENLAFAXINE 50 MG TABLET. PO SCH ×2 (07:44→20:01)
[2018-12-23] MEDS: DOCUSATE SODIUM 100 MG CAPSULE PO SCH ×2 (07:44→20:01)
[2018-12-23] MEDS: POLYETHYLENE GLYCOL 3350 17 GM PACKET. PO SCH (07:45)
[2018-12-23] MEDS: EZETIMIBE 10 MG TABLET PO SCH (07:46)
[2018-12-23] MEDS: ACETAMINOPHEN 325 MG TABLET PO SCH ×4 (07:46→20:04)
[2018-12-23] MEDS: CHOLECALCIFEROL (VITAMIN D3) 1,000 UNIT TABLET PO SCH (07:46)
[2018-12-23] MEDS: PROPRANOLOL 20 MG TABLET. PO SCH ×2 (07:56→20:04)
[2018-12-23] MEDS: SENNOSIDES/DOCUSATE 8.6/50MG TABLET. PO SCH ×2 (07:56→20:01)
[2018-12-23] MEDS: FLUTICASONE 50MCG/NASAL SPRAY 16GM BOTTLE. NS SCH (07:57)
[2018-12-23] MEDS: SELENIUM SULFIDE 1% TOPICAL SHAMPOO 207ML BOTTLE. TP SCH (07:57)
--- NOTE | 2018-12-23 08:44 | PDOC ---
Exam Note: John Note: Late entry for DOS 12/22/2018. Please also refer to the separate dictated note~for this date of service dictated separately.~Patient seen individually. Discussed the patient with Nursing staff reviewed the chart.~Reviewed interim history and current functioning. Reviewed vital signs,~Labs/ Radiology~and current medications noted below. Continue current treatment with the changes noted in the dictated addendum note Assessment: Vital Signs/I&O: Vital Signs Date Time Temp Pulse Resp B/P (MAP) Pulse Ox O2 Delivery O2 Flow Rate FiO2 12/23/18 08:02 61 143/77 12/23/18 05:35 97.1 16 93 Room Air I & O 12/22/18 12/22/18 12/23/18 14:59 22:59 06:59 Intake Total 960 ml 360 ml 240 ml Balance 960 ml 360 ml 240 ml Labs: Laboratory Tests Test 12/23/18 07:33 Glucose (Fingerstick) 124 mg/dL (70-99) H Current Medications: I have reviewed the current psychotropics carefully including drug interactions. Risk benefit ratio favors no change other than as noted in my dictated progress note. Diagnosis: Problems: (1) Anxiety disorder (2) Schizoaffective disorder, chronic condition with acute exacerbation (3) Schizoaffective disorder, bipolar type (4) Urinary tract infection (5) Bipolar 1 disorder (6) Impulse control disorder (7) Mild cognitive impairment RADHA JARA MD Dec 23, 2018 08:44
[2018-12-23] MEDS: PANTOPRAZOLE 40 MG TABLET. PO SCH ×2 (11:05→17:11)
[2018-12-23 15:35] VITALS: BP 120/83
[2018-12-23] MEDS: LURASIDONE 40 MG TABLET. PO SCH (17:11)
[2018-12-23] MEDS: risperiDONE 0.5 MG TABLET. PO SCH (17:11)
[2018-12-23] MEDS: TAMSULOSIN 0.4 MG CAP.ER.24H. PO SCH (20:01)
[2018-12-23] MEDS: GABAPENTIN 100 MG CAPSULE. PO SCH (20:01)
[2018-12-23] MEDS: MIRTAZAPINE 7.5 MG TABLET. PO SCH (20:01)
[2018-12-23] MEDS: TEMAZEPAM 15 MG CAPSULE PO SCH (20:01)
[2018-12-23] MEDS: traZODone 100 MG TABLET. PO SCH (20:01)
[2018-12-23] MEDS: risperiDONE 1 MG TABLET. PO SCH (20:01)
[2018-12-23] MEDS: DIVALPROEX ER 500 MG TAB.ER.24H PO SCH (20:02)
[2018-12-23] MEDS: IBUPROFEN 400 MG TABLET. PO PRN (21:23)
--- NOTE | 2018-12-23 22:19 | PDOC ---
Exam Note: John Note: Please also refer to the separate dictated note~for this date of service dictated separately.~Patient seen individually. Discussed the patient with Nursing staff reviewed the chart.~Reviewed interim history and current functioning. Reviewed vital signs,~Labs/ Radiology~and current medications noted below. Continue current treatment with the changes noted in the dictated addendum note Assessment: Vital Signs/I&O: Vital Signs Date Time Temp Pulse Resp B/P (MAP) Pulse Ox O2 Delivery O2 Flow Rate FiO2 12/23/18 20:04 88 120/83 12/23/18 15:35 97.6 18 94 Room Air I & O 12/22/18 12/22/18 12/23/18 14:59 22:59 06:59 Intake Total 960 ml 360 ml 240 ml Balance 960 ml 360 ml 240 ml Labs: Laboratory Tests Test 12/23/18 07:33 Glucose (Fingerstick) 124 mg/dL (70-99) H Current Medications: I have reviewed the current psychotropics carefully including drug interactions. Risk benefit ratio favors no change other than as noted in my dictated progress note. Diagnosis: Problems: (1) Anxiety disorder (2) Schizoaffective disorder, chronic condition with acute exacerbation (3) Schizoaffective disorder, bipolar type (4) Bipolar 1 disorder (5) Impulse control disorder (6) Mild cognitive impairment RADHA JARA MD Dec 23, 2018 22:19
[2018-12-24] MEDS: LEVOTHYROXINE 50 MCG TABLET PO SCH (05:55)
[2018-12-24 06:18] VITALS: BP 152/93
--- NOTE | 2018-12-24 07:21 | PN ---
DATE: 12/22/2018 This late entry 12/22/2018 covers elements not covered in my initial note. SUBJECTIVE: I met with the patient evening of 12/22/2018. The patient slept 6-1/2 hours previous night. He has done reasonably well per nursing report. He has been much less anxious, labile, much less paranoid. REVIEW OF SYSTEMS: Ambulation impaired, in wheelchair. No CV, , pulmonary, eye, ENT system symptoms on review. MENTAL STATUS EXAM: Oriented to himself. Insight is improved. Judgment intact to standard questioning. Mood is less grandiose and labile. No active suicidal or homicidal ideation. He is fairly attentive, very verbal, appropriate as I interacted with him at some length. LABORATORY DATA: Reviewed. No suicidal or homicidal ideation. IMPRESSION: Bipolar 1 disorder, mixed; anxiety disorder, unspecified; impulse control disorder, unspecified. PLAN: Continue psychotropics from initial note including Depakote with a valproic acid level therapeutic at 64, Latuda, Effexor, trazodone, Risperdal, Restoril for insomnia, and Zyprexa p.r.n. together with Remeron 7.5 mg at bedtime. RADHA JARA MD DR: CECILIA/addie JOB#: [id number] / [id number]
[2018-12-24] MEDS: PANTOPRAZOLE 40 MG TABLET. PO SCH ×2 (07:40→17:29)
[2018-12-24] MEDS: LACTOBACILLUS RHAMNOSUS GG 1 CAPSULE. PO SCH ×2 (07:40→19:58)
[2018-12-24] MEDS: POLYETHYLENE GLYCOL 3350 17 GM PACKET. PO SCH (07:40)
[2018-12-24] MEDS: EZETIMIBE 10 MG TABLET PO SCH (07:40)
[2018-12-24] MEDS: SENNOSIDES/DOCUSATE 8.6/50MG TABLET. PO SCH ×2 (07:41→20:13)
[2018-12-24] MEDS: DOCUSATE SODIUM 100 MG CAPSULE PO SCH ×2 (07:41→20:13)
[2018-12-24] MEDS: metFORMIN 500 MG TABLET PO SCH ×2 (07:41→17:29)
[2018-12-24] MEDS: CHOLECALCIFEROL (VITAMIN D3) 1,000 UNIT TABLET PO SCH (07:41)
[2018-12-24] MEDS: ACETAMINOPHEN 325 MG TABLET PO SCH ×4 (07:41→20:14)
[2018-12-24] MEDS: VENLAFAXINE 50 MG TABLET. PO SCH ×2 (07:41→20:13)
[2018-12-24] MEDS: ASPIRIN ENTERIC COATED 81 MG TABLET.DR. PO SCH (07:41)
[2018-12-24] MEDS: POLYVINYL ALCOHOL/POVIDONE/PF OPHTH SOLUTION DROPERETTE. OU SCH ×2 (07:42→19:57)
[2018-12-24] MEDS: FLUTICASONE 50MCG/NASAL SPRAY 16GM BOTTLE. NS SCH (07:44)
[2018-12-24] MEDS: PROPRANOLOL 20 MG TABLET. PO SCH ×2 (07:44→19:57)
[2018-12-24] MEDS: METHYL SALICYLATE/MENTHOL TOPICAL OINTMENT 29GM TUBE. TP PRN (10:53)
[2018-12-24] MEDS: IBUPROFEN 400 MG TABLET. PO PRN (14:19)
[2018-12-24 15:44] VITALS: BP 192/100
[2018-12-24 17:00] VITALS: BP 175/81
[2018-12-24] MEDS ORDERED: LISINOPRIL 10 MG TABLET PO ONE (17:00)
[2018-12-24] MEDS: LURASIDONE 40 MG TABLET. PO SCH (17:29)
[2018-12-24] MEDS: risperiDONE 0.5 MG TABLET. PO SCH (17:30)
[2018-12-24] MEDS ORDERED: VENL150C PO (19:44)
[2018-12-24] MEDS ORDERED: LACT1CAP21 PO (19:51)
[2018-12-24] MEDS ORDERED: MAGN2400 PO (19:54)
[2018-12-24] MEDS ORDERED: MAG355OR11 PO (19:54)
[2018-12-24] MEDS ORDERED: METH29OI TP (19:55)
[2018-12-24] MEDS ORDERED: MIRT15TA3 PO (19:56)
[2018-12-24] MEDS ORDERED: OLAN5TAB5 PO (19:57)
[2018-12-24] MEDS ORDERED: TEMA15CA PO (19:58)
[2018-12-24] MEDS: DIVALPROEX ER 500 MG TAB.ER.24H PO SCH (19:58)
[2018-12-24] MEDS: GABAPENTIN 100 MG CAPSULE. PO SCH (19:58)
[2018-12-24] MEDS: risperiDONE 1 MG TABLET. PO SCH (19:58)
[2018-12-24] MEDS: MIRTAZAPINE 7.5 MG TABLET. PO SCH (19:58)
[2018-12-24] MEDS ORDERED: RISP1TAB3 PO (19:58)
[2018-12-24] MEDS ORDERED: RISP0.5T3 PO (19:59)
[2018-12-24] MEDS ORDERED: TRAZ-86 PO (20:00)
[2018-12-24] MEDS ORDERED: LISI10TA2 PO (20:08)
[2018-12-24] MEDS: TAMSULOSIN 0.4 MG CAP.ER.24H. PO SCH (20:13)
[2018-12-24] MEDS: TEMAZEPAM 15 MG CAPSULE PO SCH (20:13)
[2018-12-24] MEDS: traZODone 100 MG TABLET. PO SCH (20:14)
--- NOTE | 2018-12-24 21:51 | PDOC ---
Exam Note: John Note: Please also refer to the separate dictated note~for this date of service dictated separately.~Patient seen individually. Discussed the patient with Nursing staff reviewed the chart.~Reviewed interim history and current functioning. Reviewed vital signs,~Labs/ Radiology~and current medications noted below. Continue current treatment with the changes noted in the dictated addendum note Assessment: Vital Signs/I&O: Vital Signs Date Time Temp Pulse Resp B/P (MAP) Pulse Ox O2 Delivery O2 Flow Rate FiO2 12/24/18 20:15 69 175/81 12/24/18 15:44 97.4 20 95 12/23/18 15:35 Room Air I & O 12/23/18 12/23/18 12/24/18 15:00 23:00 07:00 Intake Total 960 ml 480 ml 120 ml Balance 960 ml 480 ml 120 ml Labs: Laboratory Tests Test 12/24/18 08:06 Glucose (Fingerstick) 91 mg/dL (70-99) Current Medications: Meds: Current Medications Medications (Trade) Dose Ordered Sig/Russel Route PRN Reason Start Time Stop Time Status Last Admin Dose Admin Lisinopril (Prinivil) 10 mg ONCE ONCE PO 12/24/18 17:00 12/24/18 17:01 DC 12/24/18 17:30 I have reviewed the current psychotropics carefully including drug interactions. Risk benefit ratio favors no change other than as noted in my dictated progress note. Diagnosis: Problems: (1) Bipolar 1 disorder, mixed (2) Anxiety disorder (3) Schizoaffective disorder, chronic condition with acute exacerbation (4) Schizoaffective disorder, bipolar type (5) Bipolar 1 disorder (6) Impulse control disorder (7) Mild cognitive impairment RADHA JARA MD Dec 24, 2018 21:51
--- NOTE | 2018-12-25 01:46 | PN ---
DATE: 12/23/2018 PSYCHIATRIC PROGRESS NOTE This late entry 12/23/2018 covers elements not covered in my initial note. SUBJECTIVE: I met with the patient in the evening of 12/23/2018 at some length individually. The patient slept 5 hours previous night. He has been compliant with medications. No overt delusions noted per nursing report. He refuses to use the walker, stays in his wheelchair and I processed this with him. REVIEW OF SYSTEMS: Ambulation impaired, in wheelchair, complains of shoulder pain. No CV, , pulmonary, eye system symptoms on review. MENTAL STATUS EXAM: The patient is reasonably oriented. Speech is coherent, abstraction fair, computation somewhat impaired, language function intact, attention span short. Mood and affect is improved, lability is much improved. No suicidal or homicidal ideation. LABORATORY DATA: Reviewed. IMPRESSION: Unchanged from initial note. PLAN: No change from initial note and we will continue his current psychotropics including Depakote, Latuda, trazodone, Effexor, Risperdal, Restoril and Remeron along with Zyprexa p.r.n. RADHA JARA MD DR: CECILIA/addie JOB#: [id number] / [id number]
[2018-12-25 05:40] VITALS: BP 136/78
[2018-12-25] MEDS: LEVOTHYROXINE 50 MCG TABLET PO SCH (05:48)
[2018-12-25] MEDS: POLYETHYLENE GLYCOL 3350 17 GM PACKET. PO SCH (07:39)
[2018-12-25] MEDS: IBUPROFEN 400 MG TABLET. PO PRN (07:39)
[2018-12-25] MEDS: FLUTICASONE 50MCG/NASAL SPRAY 16GM BOTTLE. NS SCH (07:39)
[2018-12-25] MEDS: CHOLECALCIFEROL (VITAMIN D3) 1,000 UNIT TABLET PO SCH (07:40)
[2018-12-25] MEDS: SENNOSIDES/DOCUSATE 8.6/50MG TABLET. PO SCH (07:40)
[2018-12-25] MEDS: POLYVINYL ALCOHOL/POVIDONE/PF OPHTH SOLUTION DROPERETTE. OU SCH (07:40)
[2018-12-25] MEDS: PROPRANOLOL 20 MG TABLET. PO SCH (07:40)
[2018-12-25] MEDS: SELENIUM SULFIDE 1% TOPICAL SHAMPOO 207ML BOTTLE. TP SCH (07:41)
[2018-12-25] MEDS: VENLAFAXINE 50 MG TABLET. PO SCH (07:41)
[2018-12-25] MEDS: ACETAMINOPHEN 325 MG TABLET PO SCH (07:41)
[2018-12-25] MEDS: LACTOBACILLUS RHAMNOSUS GG 1 CAPSULE. PO SCH (07:41)
[2018-12-25] MEDS: ASPIRIN ENTERIC COATED 81 MG TABLET.DR. PO SCH (07:41)
[2018-12-25] MEDS: DOCUSATE SODIUM 100 MG CAPSULE PO SCH (07:41)
[2018-12-25] MEDS: EZETIMIBE 10 MG TABLET PO SCH (07:41)
[2018-12-25] MEDS: metFORMIN 500 MG TABLET PO SCH (07:41)
[2018-12-25 07:44] VITALS: BP 136/78
[2018-12-25] MEDS ORDERED: LISINOPRIL 10 MG TABLET PO SCH (09:00)
--- NOTE | 2018-12-25 17:55 | PDOC ---
Exam Note: John Note: Please also refer to the separate dictated note~for this date of service dictated separately.~Patient seen individually. Discussed the patient with Nursing staff reviewed the chart.~Reviewed interim history and current functioning. Reviewed vital signs,~Labs/ Radiology~and current medications noted below. Continue current treatment with the changes noted in the dictated addendum note Assessment: Vital Signs/I&O: Vital Signs Date Time Temp Pulse Resp B/P (MAP) Pulse Ox O2 Delivery O2 Flow Rate FiO2 12/25/18 07:44 58 136/78 12/25/18 05:40 97.3 20 96 12/23/18 15:35 Room Air I & O 12/24/18 12/24/18 12/25/18 15:00 23:00 07:00 Intake Total 720 ml 200 ml 120 ml Balance 720 ml 200 ml 120 ml Labs: Laboratory Tests Test 12/25/18 07:14 Glucose (Fingerstick) 127 mg/dL (70-99) H Current Medications: Meds: Current Medications Medications (Trade) Dose Ordered Sig/Russel Route PRN Reason Start Time Stop Time Status Last Admin Dose Admin Lisinopril (Prinivil) 10 mg DAILY PO 12/25/18 09:00 12/25/18 09:47 DC 12/25/18 07:44 I have reviewed the current psychotropics carefully including drug interactions. Risk benefit ratio favors no change other than as noted in my dictated progress note. Diagnosis: Problems: (1) Bipolar 1 disorder, mixed (2) Anxiety disorder (3) Schizoaffective disorder, chronic condition with acute exacerbation (4) Schizoaffective disorder, bipolar type (5) Impulse control disorder RADHA JARA MD Dec 25, 2018 17:55
--- NOTE | 2018-12-26 12:27 | DS ---
DATE OF DISCHARGE: 12/25/2018 DISCHARGE SUMMARY AND PSYCHIATRIC PROGRESS NOTE This is a late entry, covers elements not covered in my initial note on 12/25/2018. REASON FOR ADMISSION: Please refer to the admission history for details. Briefly, the patient is a 73-year-old male referred to us from [facility] in [place] by his primary care physician and his outpatient psychiatrist, Dr. Tafoya and admitted by his brother who is his court-appointed guardian. The patient has a longstanding diagnosis of bipolar disorder and more recently he had appeared delusional, paranoid, was having anger outbursts with increased irritability and intermittently appeared depressed. He had made vague threats to staff members at the facility and seemed to have failed outpatient psychiatric interventions resulting in this referral. SIGNIFICANT FINDINGS AND CLINICAL COURSE: Following admission, the patient was seen daily individually by myself from a psychiatric standpoint, medical followup was with Dr. Alexis. The patient was admitted through the Emergency Room and did have a UTI, which was treated on a course of Levaquin per Dr. Alexis. Initially, the patient was quite labile in his mood, angry, irritable, quite obsessed about not sleeping well. He said he had responded to Lunesta in the past, but that was not available here and he did seem to respond to a combination of Restoril 15 mg at bedtime and Remeron 7.5 mg p.o. at bedtime for his insomnia. Further adjustments in his psychotropics were made for the bipolar disorder, mixed, and he responded to a combination of Depakote ER 1500 mg at bedtime with a therapeutic blood level of 64 along with Latuda 80 mg daily, which was a reduction from the 120 mg a day he was taking at admission. He was also on trazodone 100 mg at bedtime and may repeat x 1, Effexor 50 mg b.i.d., Risperdal 0.5 mg at 1700 and 1 mg at bedtime and Zyprexa was used p.r.n. He was on 2 atypical antipsychotics at discharge including Latuda 80 mg a day and Risperdal as noted. He was doing extremely well prior to discharge consistently for several days with a stable mood. No suicidal or homicidal ideation and he was not delusional or making threats towards anyone. In fact, he was extremely pleasant, appropriate during daily individual visits and very appreciative of the care here. It was felt by the entire treatment team and our evaluation that at the time of discharge, he was appropriate to return to assisted living. If his symptoms change in the future, he may need a higher level of care, but at this time he seemed appropriate to return to assisted living. At the time of this dictation, I have talked to the patient's brother/guardian, Steve York morning of 12/26/2018 and a copy of this discharge summary will be sent to the patient's brother/guardian for the records as well. Prior to discharge on 12/25/2018, the patient was appropriate, cooperative. No suicidal or homicidal ideation. He is reasonably oriented. He was fairly attentive. Mood appeared stable and again he was not psychotic or threatening in any way. CONDITION AT DISCHARGE: Improved. FINAL DIAGNOSES: Bipolar disorder mixed with psychotic features, in partial remission; anxiety disorder, unspecified; impulse control disorder, unspecified; diabetes mellitus; hyperlipidemia; hypertension; coronary artery disease; arthritis; obstructive sleep apnea; lumbar stenosis; hypothyroidism; status post urinary tract infection. DISCHARGE MEDICATIONS: Included Depakote ER 1500 mg at bedtime, Latuda 80 mg a day, trazodone 100 mg at bedtime and may repeat x 1 for insomnia, Effexor 50 mg b.i.d., Risperdal 0.5 mg at 1700 and 1 mg at bedtime, Restoril 15 mg at bedtime, Remeron 7.5 mg at bedtime, Zyprexa 2.5 mg q. 2 hours p.r.n. psychosis and agitation. Since the patient was stable and he was on 2 atypicals at the time of discharge, I would suggest that starting in about 90 days attempt should be made to reduce the Risperdal by 0.25 mg a day approximately 2 weeks until perhaps it can be discontinued. Leave the final decision of this and how specifically to do this certainly to his outpatient psychiatrist, Dr. Tafoya. Again, I will ask the Health Information Department to send a copy of this discharge summary to patient's brother/guardian as requested. RADHA JARA MD DR: CECILIA/addie JOB#: [id number] / [id number]
--- NOTE | 2018-12-26 22:27 | PN ---
DATE: 12/24/2018 This late entry 12/24/2018 covers elements not covered in my initial note. SUBJECTIVE: I met with the patient in the evening of 12/24/2018. Per nursing report, the patient slept 6-1/2 hours previous night. He has been fairly appropriate, cooperative, much less obsessed about his sleep disturbance as he in fact is sleeping quite a bit better with the Restoril and Remeron. REVIEW OF SYSTEMS: Ambulation impaired with walker. No CV, , pulmonary, eye system symptoms on review. MENTAL STATUS EXAM: The patient is reasonably oriented. He is very pleasant, cooperative, verbal, interactive as I met with him right after his dinner. Speech coherent, abstraction fair, computation somewhat impaired, language function intact, attention span fair. Mood and affect is improved. LABORATORY DATA: Reviewed. IMPRESSION: Unchanged from initial note. PLAN: No change from initial note with possible discharge on 12/25/2018 back to assisted living. RADHA JARA MD DR: CECILIA/addie JOB#: [id number] / [id number]
== END 2018-12-25 09:15 | DRG 885 ==
LOC: ER 21:18 → GEROPSY 12-06 00:41
PROVIDERS: ADMIT Psychiatry & Neurology Psychiatry; ATTEND Psychiatry & Neurology Psychiatry
DX: F31.64 Bipolar disorder, current episode mixed, severe, with psychotic features (principal); N39.0 Urinary tract infection, site not specified; E87.1 Hypo-osmolality and hyponatremia; F41.9 Anxiety disorder, unspecified; F63.9 Impulse disorder, unspecified; M19.90 Unspecified osteoarthritis, unspecified site; F03.90 Unspecified dementia, unspecified severity, without behavioral disturbance, psychotic disturbance, mood disturbance, and anxiety; E83.42 Hypomagnesemia; E03.9 Hypothyroidism, unspecified; E11.9 Type 2 diabetes mellitus without complications; E78.5 Hyperlipidemia, unspecified; G47.00 Insomnia, unspecified; F60.9 Personality disorder, unspecified; G47.33 Obstructive sleep apnea (adult) (pediatric); I10 Essential (primary) hypertension; N40.0 Benign prostatic hyperplasia without lower urinary tract symptoms; M48.061 Spinal stenosis, lumbar region without neurogenic claudication; M20.10 Hallux valgus (acquired), unspecified foot; I25.10 Atherosclerotic heart disease of native coronary artery without angina pectoris; Z88.0 Allergy status to penicillin; Z88.8 Allergy status to other drugs, medicaments and biological substances; Z87.440 Personal history of urinary (tract) infections; Z79.899 Other long term (current) drug therapy
CPT/HCPCS: 36415; 70450; 71045; 80048; 80053; 80061; 80076; 80164; 80307; 81001; 82306; 82550; 82947; 83036; 83540; 83550; 83690; 83735; 83880; 84436; 84443; 84480; 84484; 85025; 85379; 85610; 85651; 85730; 86592; 87086; 87186; 93005; 96360; 96361; G0238; J7120; 97110; 97530; 99285-25

== ENCOUNTER 2020-09-21 18:17 | Inpatient (IN) | payer MEDICARE ==
[~2020-09-21] VITALS: Ht 188 cm; Wt 104.0 kg
[~2020-09-21 18:17] MED LIST: ACET325T21 PO; ARIP30TA4 PO; ASPI-889 PO; CARB15DR4 OU; CHOL10003 PO; DIVA500T17 PO; DOCU100C28 PO; ESCITALOPRAM OX10 MG PO; ESZO2TAB26 PO; EZET10TA20 PO; FLUT16SP21 NS; GABA100C6 PO; GUAI1TBM10 PO; HYDR-2145 PO; IBUP400T18 PO; LACT1CAP21 PO; LEVO50TA5 PO; LISI10TA16 PO; LURA60TA PO; LURA80TA PO; MAG355OR11 PO; MAGN24003 PO; METF10007 PO; METH28OI2 TP; MIRT-7 PO; OLAN5TAB99 PO; PANT40TA6 PO; POLY2500 PO; PROP40TA PO; RISP0.5T62 PO; RISP1TAB88 PO; SELE180S9 TP; SENN-37 PO; TAMS0.4C97 PO; TEMA15CA PO; TRAZ-120 PO; TRAZ-125 PO; TRIA1CAP3 PO; TRIA50CA PO; VENL150C PO; VENL150C6 PO
[2020-09-21] MEDS ORDERED: LOPE2TAB27 PO (22:22)
[2020-09-21] MEDS ORDERED: SIME80TA14 PO (22:22)
[2020-09-21] MEDS ORDERED: IPRA3AMP29 NEB (22:22)
[2020-09-21] MEDS ORDERED: NYST15PO9 TP (22:22)
[2020-09-21] MEDS ORDERED: XYLOCAINE 5% TOP (22:22)
[2020-09-21] MEDS ORDERED: CAPS56.614 TP (22:22)
[2020-09-21] MEDS ORDERED: PRIM50TA24 PO (22:22)
[2020-09-21] MEDS ORDERED: BALS60OI TP (22:22)
[2020-09-21] MEDS ORDERED: MULT-121 PO (22:22)
[2020-09-22 01:21] VITALS: BP 153/82
[2020-09-22] MEDS ORDERED: MAG HYDROX/AL HYDROX/SIMETH 30 ML ORAL.SUSP PO PRN (01:30)
[2020-09-22] MEDS ORDERED: METHYL SALICYLATE/MENTHOL TOPICAL OINTMENT 57GM TUBE. TP PRN (01:30)
[2020-09-22] MEDS ORDERED: traZODone 100 MG TABLET. PO PRN (01:30)
--- NOTE | 2020-09-22 04:02 | EKG ---
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
[2020-09-22 05:33] VITALS: BP 146/83
[2020-09-22 06:49] LABS: BASO # 0.1 x10^3/uL (0.0-0.2); BASO % 1 % (0-3); EOS # 0.3 x10^3/uL (0.0-0.7); EOS % 3 % (0-3); HEMATOCRIT 39.2 % (39.0-53.0); HEMOGLOBIN 13.1 g/dL (13.0-17.5); LYMPH # 1.9 x10^3/uL (1.0-4.8); LYMPH % 20 % (24-48); MEAN CORPUSCULAR HEMOGLOBIN 31 pg (25-35); MEAN CORPUSCULAR HGB CONC 34 g/dL (31-37); MEAN CORPUSCULAR VOLUME 93 fL (79-100); MONO # 0.9 x10^3/uL (0.0-1.1); MONO % 9 % (0-9); NEUT # 6.5 x10^3uL (1.8-7.7); NEUT % 67 % (31-73); PLATELET COUNT 323 x10^3/uL (140-400); RED CELL DISTRIBUTION WIDTH 15.1 % (11.5-14.5); WHITE BLOOD COUNT 9.6 x10^3/uL (4.0-11.0)
[2020-09-22 06:50] LABS: ALBUMIN 3.2 g/dL (3.4-5.0); ALBUMIN/GLOBULIN RATIO 0.9 (1.0-1.7); CALCIUM 9.2 mg/dL (8.5-10.1); CREATININE 0.9 mg/dL (0.7-1.3); GFR 82.5; MAGNESIUM 1.9 mg/dL (1.8-2.4); POTASSIUM 4.1 mmol/L (3.5-5.1); TOTAL BILIRUBIN 0.2 mg/dL (0.2-1.0); TOTAL PROTEIN 6.8 g/dL (6.4-8.2)
[2020-09-22] MEDS: PRIMIDONE 50 MG TABLET PO SCH (10:05)
[2020-09-22] MEDS: VENLAFAXINE 50 MG TABLET. PO SCH ×3 (10:05→20:30)
[2020-09-22 10:21] LABS: BACTERIA,URINE MANY /HPF (0-FEW); BILIRUBIN,URINE NEG (NEG); CLARITY,URINE CLOUDY; COLOR,URINE YELLOW; GLUCOSE,URINE NEG (NEG); NITRITE,URINE POS (NEG); UROBILINOGEN,URINE 0.2 mg/dL (0.2 mg/dL); WBC,URINE TNTC /HPF (0-4)
[2020-09-22] MEDS ORDERED: NYSTATIN TOPICAL POWDER 15GM BOTTLE. TP PRN (11:45)
[2020-09-22] MEDS ORDERED: ACETAMINOPHEN 325 MG TABLET PO PRN (11:45)
[2020-09-22] MEDS: ASPIRIN ENTERIC COATED 81 MG TABLET.DR. PO SCH (13:34)
[2020-09-22] MEDS: MAGNESIUM HYDROXIDE 2,400 MG/30 ML ORAL.SUSP. PO PRN (13:35)
[2020-09-22] MEDS: LISINOPRIL 10 MG TABLET PO SCH (13:35)
[2020-09-22 16:21] VITALS: BP 115/73
[2020-09-22] MEDS: PANTOPRAZOLE 40 MG TABLET. PO SCH (17:47)
[2020-09-22] MEDS: LURASIDONE 40 MG TABLET. PO SCH (20:29)
[2020-09-22] MEDS: GABAPENTIN 100 MG CAPSULE. PO SCH (20:29)
[2020-09-22] MEDS: DIVALPROEX ER 500 MG TAB.ER.24H PO SCH (20:29)
[2020-09-22] MEDS: traZODone 100 MG TABLET. PO SCH (20:29)
[2020-09-22] MEDS: TAMSULOSIN 0.4 MG CAP.ER.24H. PO SCH (20:30)
--- NOTE | 2020-09-23 00:52 | CONS ---
DATE OF CONSULTATION: 09/22/2020 ATTENDING PHYSICIAN: Dr. Jerrod Basurto and Darius Kang. REASON FOR CONSULTATION: "We are asked to see the patient for medical evaluation." HISTORY OF PRESENT ILLNESS: The patient is a 75-year-old gentleman who is in a longterm called [facility] in [place], [place], Dr. Maged Pfeiffer, PCP. He was sent here because of aggressive behavior and not following commands, paranoid, thinking people are out to get him ____ very anxious. He is bedridden. He has an indwelling Esqueda catheter due to incontinence. He also recently destroyed his hearing aids intentionally. He is admitted here for aggressive behavior and underlying dementia. PAST MEDICAL HISTORY: Significant for type 2 diabetes, gastroesophageal reflux, hypothyroidism, on replacement; hypertension; schizoaffective disorder; generalized debilitation and urinary incontinence. CURRENT MEDICATIONS: Reviewed. He was taking Flomax, ____ lisinopril, aspirin, ibuprofen, Mysoline, Depakote, Neurontin, trazodone, Effexor, Latuda, guaifenesin, dextromethorphan, fluticasone spray, methylcellulose eyedrops, loperamide, simethicone, magnesium hydroxide, Senna, Protonix, Culturelle, Synthroid 50 mcg, nystatin, capsaicin, cholecalciferol, multivitamin, MiraLax, and Lidoderm patch. ALLERGIES: HE HAS ALLERGIES TO PENICILLINS AND STATINS EXACT REACTION IS UNCLEAR. SOCIAL HISTORY: He is a nonsmoker, nondrinker. FAMILY HISTORY: Unobtainable due to patient's condition. REVIEW OF SYSTEMS: Unfortunately unobtainable. I do see that he has an indwelling Esqueda catheter. PHYSICAL EXAMINATION: GENERAL: When I saw him this is a somewhat paranoid gentleman who actually refused to follow the commands. He is stuck in the doorway. He is exhibiting paranoid behaviors. VITAL SIGNS: Showed a blood pressure 146/83 mmHg, pulse is 74 per minute and regular, temperature 97.3 degrees Fahrenheit and his oxygen saturation 94% on room air. HEENT: Head is without trauma. Pupils are reactive. Sclerae is nonicteric. Oropharynx clear. NECK: Supple. LUNGS: Otherwise, clear to auscultation. ABDOMEN: Distended, tympanitic. Hypoactive bowel sounds. EXTREMITIES: Showed trace edema. NEUROLOGIC: Pleasantly confused. He is wheelchair bound. There is an indwelling Esqueda catheter draining urine adequately. SKIN: Otherwise, warm and dry without any breakdown. PERTINENT LABORATORY STUDIES: His serology is pending. His hemoglobin on admission was 13.1 g/dL with a white count of 9600. Electrolytes all within normal range. Normal sodium 136 mEq, potassium 4.1 mEq, nonfasting blood sugar is 107. Transaminases are normal. ASSESSMENT: 1. This 75-year-old gentleman has schizoaffective disorder with aggressive behavior recently. 2. Paranoid behavior. 3. Essential hypertension, currently normotensive. 4. Remote history of diabetes, currently is off of oral hypoglycemics. His last blood sugar was normal. 5. Gastroesophageal reflux disease. 6. Hyperlipidemia. 7. Degenerative arthritis. 8. Urinary incontinence with indwelling catheter. RECOMMENDATIONS: 1. I reviewed most of his home meds. I have restarted his regular medicine discontinued ____ fluids meds, which he does not need at this time. Please refer to the order reconciliation note. 2. He is stable from medical standpoint. 3. We will await his hemoglobin A1c and his coronavirus swab. Thank you again for asking us to see this patient for medical evaluation and clearance. We shall follow along closely during his inpatient's care. DANIEL DR: DANIEL/addie TID: [id number]
[2020-09-23 01:12] LABS: HEMOGLOBIN A1C 5.4 % (4.8-5.6)
--- NOTE | 2020-09-23 03:54 | PSYEV ---
DATE OF SERVICE: 09/22/2020 PSYCHIATRIC EVALUATION REASON FOR ADMISSION: This 75-year-old male was transferred from [facility] in [place] where he stayed overnight and apparently started presenting with behavior problems threatening towards staff, aggressive behaviors, refusing vital signs, did not sleep and also broke his 1 hearing aid. Patient, on arrival to [facility], was heavily sedated. [facility] got a psychiatric assessment and then transferred here because they could not handle him. HISTORY OF PRESENT ILLNESS: The patient is noncommunicative most of the time and also has some slurring of speech. Seems to be sedated. The patient is mainly complaining of chronic pain, not getting enough help with his medical problems. The patient has been staying in bed most of the time, getting out of his bed because of chronic pain. The patient has a diagnosis of bipolar disorder, mixed with psychotic features; anxiety disorder. The patient also has multiple physical problems. PAST MEDICAL HISTORY: Patient has multiple medical problems including history of arthritis, coronary artery disease, carotid stenosis, chronic kidney disease, diabetes mellitus type 2, dysphagia, GERD, gout, hearing loss, hypertension, hypothyroidism, low back pain, mixed hyperlipidemia, obesity, and osteoarthritis. Also, history of tubular adenoma of colon. PAST PSYCHIATRIC HISTORY: The patient was not able to give much information at this point. Patient was hospitalized to [facility] at [facility] in 11/2018. At that time, he was referred here from [facility] and [facility]. The patient's brother is the legal guardian. Patient is known to have significant mood swings, delusional behaviors, paranoia and angry outbursts and also peripheral depression. The patient apparently was treated with Paxil while he was at [facility]. Apparently, they increased the dose. Apparently, he had a negative response, become more irritable, more angry and threatening towards staff. The patient also has been in [facility] in 1980. At that time, he was diagnosed with schizophrenia, paranoid type. According to the information, he was also spent some time with [facility] in [place] and then went on disability. Patient has been diagnosed in the past while he was at a [facility] with a diagnosis of schizoaffective disorder, bipolar type, mixed with psychotic features and also bipolar disorder type 1, mixed with psychotic features; anxiety disorder and also mild cognitive impairment. According to the nurse's report on admission, the patient was sedated upon arrival. He was unable to answer questions. Patient also had a red man's related skin on his buttocks, lower back. The patient was also on Esqueda catheter. Patient apparently on transportation from [facility] had to return to [facility] to get IM Ativan 1 mg and also Haldol 5 mg injection to control his agitation and aggressive behavior towards the EMS, so that he could be transported. Patient's hematology showed slight decrease in lymphocytes. The patient's glucose was 107. The patient's urinalysis showed protein 100 mg/dL. Urine nitrite positive and also increased leukocyte esterase, also RBCs 3-5. CURRENT MEDICATIONS: Levothyroxine 50 mg daily, Flomax 0.4 mg at night, trazodone 100 mg at night, gabapentin 200 mg at night, Depakote 1500 mg at night, Latuda 80 mg in the evening, Protonix 40 mg twice a day, lisinopril 20 mg daily, aspirin 81 mg daily, Venlafaxine 50 mg t.i.d., primidone 50 mg daily, trazodone 100 mg at night p.r.n. for sleep. PSYCHOSOCIAL HISTORY: The patient unable to give much information at this time. No history of alcohol or drug abuse according to prior admission notes. No history of any physical or sexual abuse in the past. MENTAL STATUS EXAMINATION: Patient appeared to be of his stated age, moderately obese, somewhat sedated, but able to respond with monosyllabic answers. The patient also showed some slurring of speech. The patient also complained of severe pain in both lower extremities. Speech is monosyllabic, decreased rate and rhythm. Affect and mood showed he was irritable, ledesma, seems to be angry. Also, some confusion, but did not present with any major psychotic symptoms and apparently has been sedated prior to coming here. The patient has a history of aggression, mood swings including manic-like behavior, angry outburst and also periods of depression. The patient seems to be oriented to surroundings. Patient's memory is not testable at this time. The patient lacks insight into his problems. Patient also has significant hearing loss. The patient's judgment is impaired. Insight limited. STRENGTHS: The patient lucia legal guardian, his brother. Patient is on disability. WEAKNESSES: The patient apparently failed to respond to recent change in medications. The patient has increasingly become hostile, angry, threatening towards the staff. ADMITTING DIAGNOSES: AXIS I: 1. Schizoaffective disorder, mixed with psychotic features. 2. History of bipolar disorder, mixed with psychotic symptoms. 3. Mild cognitive disorder. AXIS II: None. AXIS III: Please refer to the list above. INITIAL TREATMENT PLAN: The patient is hospitalized to [facility]. Patient will be seen by the primary care doctor. The patient's lab to be repeated including patient's Depakote level. Patient currently refusing to get out of his bed. The patient will be also involved in PT and OT. Patient's medications were evaluated. The patient will be seen by the psychiatric acuity. ESTIMATED LENGTH OF STAY: Ten to fourteen days. DISCHARGE CRITERIA: Patient is able to maintain improvement. No longer exhibiting psychotic and aggressive, threatening behaviors for three consecutive days. SANDRA DR: Jb TID: [id number]
[2020-09-23 05:45] VITALS: BP 105/67
[2020-09-23] MEDS: LEVOTHYROXINE 50 MCG TABLET PO SCH (06:00)
[2020-09-23 06:17] LABS: VAL ACID 44 mcg/mL (50-100)
[2020-09-23] MEDS: POLYETHYLENE GLYCOL 3350 17 GM PACKET. PO SCH (09:00)
[2020-09-23] MEDS: NYSTATIN TOPICAL POWDER 15GM BOTTLE. TP SCH ×2 (09:00→20:39)
[2020-09-23] MEDS: VENLAFAXINE 50 MG TABLET. PO SCH ×3 (09:01→20:38)
[2020-09-23] MEDS: LISINOPRIL 10 MG TABLET PO SCH (09:01)
[2020-09-23] MEDS: PRIMIDONE 50 MG TABLET PO SCH (09:01)
[2020-09-23] MEDS: ASPIRIN ENTERIC COATED 81 MG TABLET.DR. PO SCH (09:01)
[2020-09-23] MEDS: PANTOPRAZOLE 40 MG TABLET. PO SCH ×2 (12:56→18:51)
[2020-09-23 15:59] VITALS: BP 117/62
[2020-09-23] MEDS: LURASIDONE 40 MG TABLET. PO SCH (18:51)
[2020-09-23] MEDS: TAMSULOSIN 0.4 MG CAP.ER.24H. PO SCH (20:38)
[2020-09-23] MEDS: DIVALPROEX ER 500 MG TAB.ER.24H PO SCH (20:38)
[2020-09-23] MEDS: traZODone 100 MG TABLET. PO SCH (20:38)
[2020-09-23] MEDS: GABAPENTIN 100 MG CAPSULE. PO SCH (20:38)
[2020-09-23 20:57] LABS: THYROID STIM HORMONE (TSH) 5.412 uIU/mL (0.358-3.740)
[2020-09-23] MEDS: VITS A & D/LANOLIN TOPICAL OINTMENT 42GM TUBE. TP SCH (21:00)
[2020-09-24] MEDS: ACETAMINOPHEN 325 MG TABLET PO PRN (02:00)
[2020-09-24] MEDS: MAGNESIUM HYDROXIDE 2,400 MG/30 ML ORAL.SUSP. PO PRN (05:40)
[2020-09-24] MEDS: LEVOTHYROXINE 50 MCG TABLET PO SCH (05:40)
[2020-09-24 05:51] VITALS: BP 85/42
--- NOTE | 2020-09-24 06:12 | PN ---
DATE: 09/23/2020 SUBJECTIVE: The patient was seen today, met with the staff. Chart reviewed and also covering for Dr. Elder. The patient continues to be agitated, disorganized, but compliant with the medications. The patient also has significant hearing loss. During the assessment, was irritable, ledesma. Appears to be depressed, also feeling angry. OBSERVATION: VITAL SIGNS: Temperature 96.5, blood pressure 105/67, pulse 78, respirations 22, O2 sat 93%. Slept about 6 hours last night. His appetite is fair. LABORATORY DATA: Patient's lab reviewed. CURRENT MEDICATIONS: Include trazodone 100 mg at night, gabapentin 200 mg at night, Depakote mg at night, Latuda 80 mg in the evening, Effexor 50 mg t.i.d. The patient is not having any side effects. The patient continues to complains of chronic pain, lack of motivation, also difficulty with ambulation. ASSESSMENT: Schizoaffective disorder, mixed with psychotic features, mild cognitive disorder, and history of bipolar disorder, mixed with psychotic symptoms. PLAN: To continue with the current treatment plan. LENGTH OF STAY: 10-14 days. CRISTAL/JENNA DR: Jb TID: [id number]
[2020-09-24] MEDS: ASPIRIN ENTERIC COATED 81 MG TABLET.DR. PO SCH (07:42)
[2020-09-24] MEDS: POLYETHYLENE GLYCOL 3350 17 GM PACKET. PO SCH (07:42)
[2020-09-24] MEDS: PRIMIDONE 50 MG TABLET PO SCH (07:42)
[2020-09-24] MEDS: VITS A & D/LANOLIN TOPICAL OINTMENT 42GM TUBE. TP SCH ×2 (07:43→19:49)
[2020-09-24] MEDS: NYSTATIN TOPICAL POWDER 15GM BOTTLE. TP SCH ×2 (07:43→19:49)
[2020-09-24] MEDS: LISINOPRIL 10 MG TABLET PO SCH (07:43)
[2020-09-24] MEDS: VENLAFAXINE 50 MG TABLET. PO SCH ×3 (07:43→19:48)
[2020-09-24] MEDS: PANTOPRAZOLE 40 MG TABLET. PO SCH ×2 (12:36→17:08)
[2020-09-24 15:51] VITALS: BP 127/63
[2020-09-24] MEDS: LURASIDONE 40 MG TABLET. PO SCH (17:07)
[2020-09-24] MEDS: GABAPENTIN 100 MG CAPSULE. PO SCH (19:48)
[2020-09-24] MEDS: traZODone 100 MG TABLET. PO SCH (19:48)
[2020-09-24] MEDS: DIVALPROEX ER 500 MG TAB.ER.24H PO SCH (19:48)
[2020-09-24] MEDS: TAMSULOSIN 0.4 MG CAP.ER.24H. PO SCH (19:48)
[2020-09-24] MEDS: BISACODYL TAB 5 MG TABLET.DR. PO PRN (21:32)
--- NOTE | 2020-09-25 01:54 | PN ---
DATE: 09/24/2020 SUBJECTIVE: The patient was seen today met with the staff, chart reviewed. The patient's behavior remains the same, stays in bed most of the time, complaining of chronic pain, also difficulty swallowing. The patient seems to be oriented to surroundings. The patient had difficulty communicating his needs at times. The patient also highly emotional, gets angry and also exhibits poor impulse control, low frustration tolerance. Staff reports increased agitation, disorganized thinking, but compliant with medication and also demanding with staff, yelling and verbal outbursts. OBSERVATION: VITAL SIGNS: Temperature 97.6, blood pressure 85/42, pulse 91, respirations 22, O2 sat 94%. Slept about 7 hours last night. The patient's appetite is fair. LABORATORY DATA: The patient's lab reviewed. The patient's triglycerides was 155. Cholesterol 258, LDL 186, HDL was 41. TSH was 5.4. The patient's medications reviewed. Currently, not having any side effects to the medications. ASSESSMENT: Schizoaffective disorder, mixed with psychotic features, mild cognitive disorder, and history of bipolar disorder, mixed with psychotic symptoms. PLAN: To continue with the treatment. LENGTH OF STAY: 10-14 days. HARLEY/MARIBEL/CHRIS DR: Jb TID: [id number]
[2020-09-25] MEDS: LEVOTHYROXINE 50 MCG TABLET PO SCH (06:00)
[2020-09-25 06:07] VITALS: BP 138/79
[2020-09-25 06:18] LABS: BILIRUBIN,URINE NEG (NEG); CLARITY,URINE CLOUDY; COLOR,URINE STRAW; GLUCOSE,URINE NEG (NEG)
[2020-09-25 06:19] LABS: BACTERIA,URINE MOD /HPF (0-FEW); NITRITE,URINE POS (NEG); SQUAMOUS EPITHELIAL CELL,UR FEW /LPF; UROBILINOGEN,URINE 0.2 mg/dL (0.2 mg/dL); WBC,URINE >40 /HPF (0-4)
[2020-09-25] MEDS: ASPIRIN ENTERIC COATED 81 MG TABLET.DR. PO SCH (08:44)
[2020-09-25] MEDS: LISINOPRIL 10 MG TABLET PO SCH (08:45)
[2020-09-25] MEDS: VENLAFAXINE 50 MG TABLET. PO SCH ×3 (08:45→20:00)
[2020-09-25] MEDS: POLYETHYLENE GLYCOL 3350 17 GM PACKET. PO SCH (08:45)
[2020-09-25] MEDS: PRIMIDONE 50 MG TABLET PO SCH (08:45)
[2020-09-25] MEDS: VITS A & D/LANOLIN TOPICAL OINTMENT 42GM TUBE. TP SCH ×2 (08:46→20:01)
[2020-09-25] MEDS: NYSTATIN TOPICAL POWDER 15GM BOTTLE. TP SCH ×2 (08:46→19:28)
[2020-09-25] MEDS: DIVALPROEX 125 MG CAP.SPRINK PO SCH ×2 (08:49→19:59)
[2020-09-25] MEDS: PANTOPRAZOLE 40 MG TABLET. PO SCH ×2 (12:06→17:32)
[2020-09-25 16:02] VITALS: BP 139/68
[2020-09-25] MEDS ORDERED: NEOMYCIN/BACI/POLY/HC OPHTH OINTMENT 3.5GM TUBE. OU SCH (17:00)
[2020-09-25] MEDS: ACETAMINOPHEN 325 MG TABLET PO PRN (17:29)
[2020-09-25] MEDS: NEO/POLYMYX/DEXAMETH OPHTH SUSPENSION 5ML BOTTLE. OU SCH ×2 (17:32→19:59)
[2020-09-25] MEDS: LURASIDONE 40 MG TABLET. PO SCH (17:32)
[2020-09-25] MEDS: TAMSULOSIN 0.4 MG CAP.ER.24H. PO SCH (20:00)
[2020-09-25] MEDS: traZODone 100 MG TABLET. PO SCH (20:00)
[2020-09-25] MEDS: GABAPENTIN 100 MG CAPSULE. PO SCH (20:00)
--- NOTE | 2020-09-25 23:24 | PN ---
DATE: 09/25/2020 SUBJECTIVE: The patient was seen today met with the staff. Chart reviewed and also covering for Dr. Elder. Staff reports he continues to be agitated, disorganized, but compliant with the medications. The patient has similar difficulty communicating, having some speech impediment. The patient does not make eye contact. The patient seems to be in chronic pain, most of his lower extremities. The patient also irritable and ledesma and significant decline in his overall level of functioning. The patient also very concrete with his thinking, currently not exhibiting any psychotic symptoms, appears to be depressed. OBSERVATION: VITAL SIGNS: Temperature 98.2, blood pressure 138/79, pulse 79, respirations 18, O2 sat 96%. GENERAL: Slept about 7 hours last night. The patient's appetite is fair. Patient's medication and lab reviewed. ASSESSMENT: 1. Schizoaffective disorder, mixed with psychotic features. 2. Mild cognitive disorder. 3. History of bipolar disorder, mixed with psychotic features. PLAN: To continue with the treatment. LENGTH OF STAY: 10-[address]: Jb TID: [id number]
[2020-09-26] MEDS: LEVOTHYROXINE 50 MCG TABLET PO SCH (05:24)
[2020-09-26 06:00] VITALS: BP 117/73
[2020-09-26] MEDS: NEO/POLYMYX/DEXAMETH OPHTH SUSPENSION 5ML BOTTLE. OU SCH ×2 (08:34→23:21)
[2020-09-26] MEDS: POLYETHYLENE GLYCOL 3350 17 GM PACKET. PO SCH (08:34)
[2020-09-26] MEDS: DIVALPROEX 125 MG CAP.SPRINK PO SCH ×2 (08:35→23:21)
[2020-09-26] MEDS: LISINOPRIL 10 MG TABLET PO SCH (08:35)
[2020-09-26] MEDS: PRIMIDONE 50 MG TABLET PO SCH (08:35)
[2020-09-26] MEDS: ASPIRIN ENTERIC COATED 81 MG TABLET.DR. PO SCH (08:35)
[2020-09-26] MEDS: VITS A & D/LANOLIN TOPICAL OINTMENT 42GM TUBE. TP SCH ×2 (08:36→21:00)
[2020-09-26] MEDS: VENLAFAXINE 50 MG TABLET. PO SCH ×3 (08:36→23:20)
[2020-09-26] MEDS: NYSTATIN TOPICAL POWDER 15GM BOTTLE. TP SCH ×2 (08:36→23:21)
[2020-09-26] MEDS: PANTOPRAZOLE 40 MG TABLET. PO SCH ×2 (12:32→17:20)
[2020-09-26 15:55] VITALS: BP 107/68
[2020-09-26] MEDS: LURASIDONE 40 MG TABLET. PO SCH (17:20)
--- NOTE | 2020-09-26 20:33 | OP ---
DATE OF SURGERY: 09/26/2020 SUBJECTIVE: The patient was seen today, met with the staff, chart reviewed and also covering for Dr. Elder. Staff reports he is staying in bed most of the time, cooperative with medications and cares. The patient's behavior slightly improved. He was able to make eye contact and able to hold a reasonable conversation. OBSERVATION: VITAL SIGNS: Temperature 97.4, blood pressure 117/73, pulse 83, respirations 16, O2 sat 95%. Slept about 5 hours last night. The patient's appetite is fair. The patient's lab reviewed. The patient's medications reviewed, not having any side effects. ASSESSMENT: 1. Schizoaffective disorder, mixed with psychotic features. 2. Mild cognitive disorder. 3. History of bipolar disorder, mixed with psychotic features. PLAN: To continue with treatment. LENGTH OF STAY: 10-[address]: Jb TID: [id number]
[2020-09-26] MEDS: GABAPENTIN 100 MG CAPSULE. PO SCH (23:20)
[2020-09-26] MEDS: traZODone 100 MG TABLET. PO SCH (23:20)
[2020-09-26] MEDS: TAMSULOSIN 0.4 MG CAP.ER.24H. PO SCH (23:21)
[2020-09-27] MEDS: LEVOTHYROXINE 50 MCG TABLET PO SCH (05:22)
[2020-09-27 06:09] VITALS: BP 134/75
[2020-09-27] MEDS: VITS A & D/LANOLIN TOPICAL OINTMENT 42GM TUBE. TP SCH ×2 (08:07→21:00)
[2020-09-27] MEDS: POLYETHYLENE GLYCOL 3350 17 GM PACKET. PO SCH (08:08)
[2020-09-27] MEDS: ASPIRIN ENTERIC COATED 81 MG TABLET.DR. PO SCH (08:08)
[2020-09-27] MEDS: NYSTATIN TOPICAL POWDER 15GM BOTTLE. TP SCH ×2 (08:08→20:59)
[2020-09-27] MEDS: PANTOPRAZOLE 40 MG TABLET. PO SCH ×2 (08:08→16:51)
[2020-09-27] MEDS: PRIMIDONE 50 MG TABLET PO SCH (08:08)
[2020-09-27] MEDS: DIVALPROEX 125 MG CAP.SPRINK PO SCH ×2 (08:09→20:52)
[2020-09-27] MEDS: VENLAFAXINE 50 MG TABLET. PO SCH ×3 (08:09→20:52)
[2020-09-27] MEDS: LISINOPRIL 10 MG TABLET PO SCH (08:10)
[2020-09-27] MEDS: NEO/POLYMYX/DEXAMETH OPHTH SUSPENSION 5ML BOTTLE. OU SCH ×2 (08:17→20:54)
--- NOTE | 2020-09-27 13:24 | TX PLAN ---
Interdisciplinary Tx Plan Admission Information September 22, 2020 at 00:03 Legal Status (on Admission): Voluntary DPOA/Guardian Name: Steve York Contact Other Contact Name: [facility] Other Contact Verified Code Status: Full Code Allergies: Coded Allergies: Penicillins (Verified Allergy, Intermediate, Unknown, 12/08/18) Sflcclr-Qxc-Zdg Reductase Inhibitor (Verified Allergy, Intermediate, Unknown, 12/08/18) Diagnoses Primary Diagnosis: Bipolar mixed with psychotic features Reasons for Admission: Aggressive, Agitated, Sig. Change Sleep, Combative, Suspicious/paranoid, Poor impulse control Problem in Patient's Words: He goes through spurts and needs evaluated Additional Admission Comments: According to the intake pt was uncooperative at [facility], refusing vital signs, insomnia, throwing diing tray, threatening and aggressive behaviors and paranoid -- stating facility is "evil". Ruined his own hearing aids at a facility. Problems Active Problems: uncooperative with cares yelling at staff Inactive Problems: medication compliant Pt Strengths/Limitations Ability for [place]: Poor Cognitive Functioning/Ability: Fair Communication Skills/Ability: Fair Financial Resources: Fair Insight/Judgement: Poor Intellectual Ability: Fair Physical Health: Poor Social Skills: Poor Stability in Family: Fair Stability in School/Work: Poor Verbal Skills: Fair Discharge Criteria Discharge Criteria: No need for close observ., Adequate arrangements @DC, Improved behavior, Improved mood/thought Preliminary Discharge Plan Preliminary DC Plan: Current Living Arrange. Special Precautions Fall Risk: Moderate Initial D/C Plan Pt to return to [facility] Identified Discharge Needs: Additional mental health services Currently Utilized Resources Currently Utilized Resources/P: Primary Care Physician Psychiatry Case Management Referrals Community Resources: Counseling Services Identified Problems/Hx/Goals Objectives/Short-Term Goals Short Term Goals: Dec. Aggression, Dec. Outbursts, Improved Social Skills, Medication Stabilization, Monitor Med Effects, Promote Coping Skill Short Term Goals in Patient's: N/A Interventions/Frequency Staff Interventions/Frequency&: Psychiatrist to assess pt at least 3x per week for medication management. Social Work to assess pt at least 2x per week to identify barriers to care and discharge planning. Nursing to assess medication effects, behavior management and completion of 15 minute checks daily. Encourage participation in group activities (if applicable) or 1:1 engagement based off Activity Dept goals. History Vocational History: Pt was not able to hold down a job. With his disorder he was either fired or quit. Education: Pt graduated the 12th grade; attempted to attend college adn made it 1 year before dropping out. 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
[2020-09-27] MEDS: LURASIDONE 40 MG TABLET. PO SCH (16:51)
[2020-09-27] MEDS: traZODone 100 MG TABLET. PO SCH (20:52)
[2020-09-27] MEDS: GABAPENTIN 100 MG CAPSULE. PO SCH (20:53)
[2020-09-27] MEDS: TAMSULOSIN 0.4 MG CAP.ER.24H. PO SCH (20:53)
[2020-09-27 22:56] VITALS: BP 146/76
[2020-09-28] MEDS: LEVOTHYROXINE 50 MCG TABLET PO SCH (05:45)
[2020-09-28 05:56] VITALS: BP 159/85
[2020-09-28 06:18] LABS: BASO # 0.1 x10^3/uL (0.0-0.2); BASO % 1 % (0-3); EOS # 0.5 x10^3/uL (0.0-0.7); EOS % 5 % (0-3); HEMATOCRIT 37.8 % (39.0-53.0); HEMOGLOBIN 12.6 g/dL (13.0-17.5); LYMPH # 2.5 x10^3/uL (1.0-4.8); LYMPH % 29 % (24-48); MEAN CORPUSCULAR HEMOGLOBIN 31 pg (25-35); MEAN CORPUSCULAR HGB CONC 33 g/dL (31-37); MEAN CORPUSCULAR VOLUME 94 fL (79-100); MONO # 0.9 x10^3/uL (0.0-1.1); MONO % 10 % (0-9); NEUT # 4.8 x10^3uL (1.8-7.7); NEUT % 55 % (31-73); PLATELET COUNT 286 x10^3/uL (140-400); RED BLOOD COUNT 4.01 x10^6/uL (4.30-5.70); RED CELL DISTRIBUTION WIDTH 14.8 % (11.5-14.5); WHITE BLOOD COUNT 8.8 x10^3/uL (4.0-11.0)
[2020-09-28 06:38] LABS: ALBUMIN 3.1 g/dL (3.4-5.0); ALBUMIN/GLOBULIN RATIO 0.8 (1.0-1.7); CALCIUM 9.4 mg/dL (8.5-10.1); CREATININE 0.9 mg/dL (0.7-1.3); GFR 82.5; POTASSIUM 4.5 mmol/L (3.5-5.1); TOTAL BILIRUBIN 0.3 mg/dL (0.2-1.0); TOTAL PROTEIN 6.8 g/dL (6.4-8.2)
[2020-09-28] MEDS: ASPIRIN ENTERIC COATED 81 MG TABLET.DR. PO SCH (08:33)
[2020-09-28] MEDS: DIVALPROEX 125 MG CAP.SPRINK PO SCH ×2 (08:33→20:31)
[2020-09-28] MEDS: POLYETHYLENE GLYCOL 3350 17 GM PACKET. PO SCH (08:34)
[2020-09-28] MEDS: PRIMIDONE 50 MG TABLET PO SCH (08:34)
[2020-09-28] MEDS: VENLAFAXINE 50 MG TABLET. PO SCH ×3 (08:34→20:32)
[2020-09-28] MEDS: NEO/POLYMYX/DEXAMETH OPHTH SUSPENSION 5ML BOTTLE. OU SCH ×2 (08:34→20:31)
[2020-09-28] MEDS: NYSTATIN TOPICAL POWDER 15GM BOTTLE. TP SCH ×2 (08:34→20:30)
[2020-09-28] MEDS: VITS A & D/LANOLIN TOPICAL OINTMENT 42GM TUBE. TP SCH ×2 (08:34→20:32)
[2020-09-28] MEDS: LISINOPRIL 10 MG TABLET PO SCH (08:34)
[2020-09-28] MEDS: BISACODYL TAB 5 MG TABLET.DR. PO PRN (08:35)
[2020-09-28] MEDS: PANTOPRAZOLE 40 MG TABLET. PO SCH ×2 (12:39→17:44)
[2020-09-28 16:15] VITALS: BP 113/71
[2020-09-28] MEDS: LURASIDONE 40 MG TABLET. PO SCH (17:43)
[2020-09-28] MEDS: GABAPENTIN 100 MG CAPSULE. PO SCH (20:31)
[2020-09-28] MEDS: traZODone 100 MG TABLET. PO SCH (20:32)
[2020-09-28] MEDS: TAMSULOSIN 0.4 MG CAP.ER.24H. PO SCH (20:32)
--- NOTE | 2020-09-29 00:34 | PN ---
DATE: 09/27/2020 SUBJECTIVE: The patient was seen by Telehealth, discussed with the staff and chart reviewed. The patient apparently has been having fluctuating symptoms. He continues to be disorganized with thinking, having difficulty communicating his needs and also tend to focus on issues from the past. The patient also tend to be paranoid at times. The patient apparently having fluctuating behaviors. OBSERVATION: VITAL SIGNS: Stable. GENERAL: The patient's appetite is fair. The patient apparently complaining of chronic pain. LABORATORY DATA: The patient's lab reviewed. ASSESSMENT: 1. Schizoaffective disorder, mixed with psychotic features. 2. Mild cognitive disorder. 3. History of bipolar disorder, mixed with psychotic features. PLAN: To continue with treatment. LENGTH OF STAY: 10-[address]: Jb TID: [id number]
--- NOTE | 2020-09-29 00:43 | PN ---
DATE: 09/28/2020 SUBJECTIVE: The patient was seen today, met with the staff, chart reviewed. Staff reports episodes of agitation, yelling and resistive to ADLs, also demanding at times, but is medication compliant. The patient continues to complain of pain in lower extremity. OBSERVATION: VITAL SIGNS: Temperature 96.9, blood pressure 159/85, pulse 74, respirations 18, O2 sat 94%. GENERAL: Slept about 5 hours last night. The patient's appetite improved. LABORATORY DATA: The patient's lab reviewed. ASSESSMENT: 1. Schizoaffective disorder, mixed with psychotic features. 2. Mild cognitive disorder. 3. History of bipolar disorder, mixed with psychotic features. PLAN: To continue with treatment. LENGTH OF STAY: 10-[address]: Jb TID: [id number]
[2020-09-29] MEDS: LEVOTHYROXINE 50 MCG TABLET PO SCH (05:22)
[2020-09-29 05:45] VITALS: BP 101/61
[2020-09-29 08:51] LABS: BILIRUBIN,URINE NEG (NEG); CLARITY,URINE CLEAR; COLOR,URINE YELLOW; GLUCOSE,URINE NEG (NEG); NITRITE,URINE POS (NEG)
[2020-09-29 08:52] LABS: BACTERIA,URINE FEW /HPF (0-FEW); RBC,URINE OCC /HPF (0-2); WBC,URINE >40 /HPF (0-4)
[2020-09-29] MEDS: VENLAFAXINE 50 MG TABLET. PO SCH ×3 (08:57→20:51)
[2020-09-29] MEDS: POLYETHYLENE GLYCOL 3350 17 GM PACKET. PO SCH (08:57)
[2020-09-29] MEDS: NEO/POLYMYX/DEXAMETH OPHTH SUSPENSION 5ML BOTTLE. OU SCH ×2 (08:57→20:34)
[2020-09-29] MEDS: PRIMIDONE 50 MG TABLET PO SCH (08:57)
[2020-09-29] MEDS: NYSTATIN TOPICAL POWDER 15GM BOTTLE. TP SCH ×2 (08:57→20:51)
[2020-09-29] MEDS: ASPIRIN ENTERIC COATED 81 MG TABLET.DR. PO SCH (08:57)
[2020-09-29] MEDS: DIVALPROEX 125 MG CAP.SPRINK PO SCH ×2 (08:58→20:37)
[2020-09-29] MEDS: LISINOPRIL 10 MG TABLET PO SCH (08:58)
[2020-09-29] MEDS: VITS A & D/LANOLIN TOPICAL OINTMENT 42GM TUBE. TP SCH ×2 (09:00→20:51)
[2020-09-29] MEDS: PANTOPRAZOLE 40 MG TABLET. PO SCH ×2 (13:11→17:33)
--- NOTE | 2020-09-29 15:41 | TX PLAN ---
Interdisciplinary Tx Plan Admission Information September 22, 2020 at 00:03 Legal Status (on Admission): Voluntary DPOA/Guardian Name: Steve York Contact Other Contact Name: [facility] Other Contact Verified Code Status: Full Code Allergies: Coded Allergies: Penicillins (Verified Allergy, Intermediate, Unknown, 12/08/18) Kifbzee-Gbz-Prt Reductase Inhibitor (Verified Allergy, Intermediate, Unknown, 12/08/18) Diagnoses Primary Diagnosis: Bipolar mixed with psychotic features Reasons for Admission: Aggressive, Agitated, Sig. Change Sleep, Combative, Suspicious/paranoid, Poor impulse control Problem in Patient's Words: He goes through spurts and needs evaluated Additional Admission Comments: According to the intake pt was uncooperative at [facility], refusing vital signs, insomnia, throwing diing tray, threatening and aggressive behaviors and paranoid -- stating facility is "evil". Ruined his own hearing aids at a facility. Problems Active Problems: uncooperative with cares yelling at staff Inactive Problems: medication compliant Pt Strengths/Limitations Ability for [place]: Poor Cognitive Functioning/Ability: Fair Communication Skills/Ability: Fair Financial Resources: Fair Insight/Judgement: Poor Intellectual Ability: Fair Physical Health: Poor Social Skills: Poor Stability in Family: Fair Stability in School/Work: Poor Verbal Skills: Fair Discharge Criteria Discharge Criteria: No need for close observ., Adequate arrangements @DC, Improved behavior, Improved mood/thought Preliminary Discharge Plan Preliminary DC Plan: Current Living Arrange. Special Precautions Fall Risk: Moderate Initial D/C Plan Pt to return to [facility] Identified Discharge Needs: Additional mental health services Currently Utilized Resources Currently Utilized Resources/P: Primary Care Physician Psychiatry Case Management Referrals Community Resources: Counseling Services Identified Problems/Hx/Goals Objectives/Short-Term Goals Short Term Goals: Dec. Aggression, Dec. Outbursts, Improved Social Skills, Medication Stabilization, Monitor Med Effects, Promote Coping Skill Short Term Goals in Patient's: N/A Interventions/Frequency Staff Interventions/Frequency&: Psychiatrist to assess pt at least 3x per week for medication management. Social Work to assess pt at least 2x per week to identify barriers to care and discharge planning. Nursing to assess medication effects, behavior management and completion of 15 minute checks daily. Encourage participation in group activities (if applicable) or 1:1 engagement based off Activity Dept goals. History Vocational History: Pt was not able to hold down a job. With his disorder he was either fired or quit. Education: Pt graduated the 12th grade; attempted to attend college adn made it 1 year before dropping out. Community Follow-up Primary Care physician services at [facility] Behavioral Health Treatment Plan Explained Patient/Finishing Operator had this treatment plan explained to him/her as indicated by the signature below and has been given the opportunity to ask questions and make suggestions: Date: Patient/Finishing Operator Signature: Status Update Update Pt is eating roughly 100% of meals and sleeping on average 6.5 hours per night. Pt has not had any outburst today and is more pleasant than admission. Pt is al lowing staff to complete cares without any behaviors and is somewhat withdrawn. Pt has attended one group with full participation. A neurology consult will be completed as well. Pt is medication compliant with meds crushed in pudding. Pt will plan to return to [facility] once stable. ALLEYOS 10 days. KEISHA GONZALEZ September 29, 2020 15:41
[2020-09-29 16:12] VITALS: BP 137/81
[2020-09-29] MEDS: LURASIDONE 40 MG TABLET. PO SCH (17:33)
[2020-09-29] MEDS: traZODone 100 MG TABLET. PO SCH (20:37)
[2020-09-29] MEDS: BISACODYL TAB 5 MG TABLET.DR. PO PRN (20:37)
[2020-09-29] MEDS: TAMSULOSIN 0.4 MG CAP.ER.24H. PO SCH (20:37)
[2020-09-29] MEDS: GABAPENTIN 100 MG CAPSULE. PO SCH (20:37)
--- NOTE | 2020-09-29 22:23 | PN ---
DATE: 09/29/2020 SUBJECTIVE: The patient was seen today, met with the staff, chart was reviewed and also participated in the treatment review meeting. Staff reports he has been staying in bed most of the time. No major behavior problems. Still resistant to care. Apparently has problems with anger control and he is needing total care. OBSERVATION: VITAL SIGNS: Temperature 98.0, blood pressure 137/81, pulse 84, respirations 20, O2 sat 96%. The patient sleep and appetite have improved. CURRENT MEDICATIONS: The patient's medications reviewed, not having any side effects. LABORATORY DATA: The patient's lab reviewed. ASSESSMENT: 1. Schizoaffective disorder, mixed with psychotic features. 2. Mild cognitive disorder. 3. History of bipolar disorder, mixed with psychotic features. PLAN: To continue with the treatment. LENGTH OF STAY: 10 to [address]: Jb TID: [id number]
[2020-09-30] MEDS: LEVOTHYROXINE 50 MCG TABLET PO SCH (05:20)
[2020-09-30 06:10] VITALS: BP 139/78
[2020-09-30] MEDS: VITS A & D/LANOLIN TOPICAL OINTMENT 42GM TUBE. TP SCH ×2 (09:00→20:25)
[2020-09-30] MEDS: NEO/POLYMYX/DEXAMETH OPHTH SUSPENSION 5ML BOTTLE. OU SCH ×2 (09:04→20:25)
[2020-09-30] MEDS: ASPIRIN ENTERIC COATED 81 MG TABLET.DR. PO SCH (09:04)
[2020-09-30] MEDS: PRIMIDONE 50 MG TABLET PO SCH (09:04)
[2020-09-30] MEDS: VENLAFAXINE 50 MG TABLET. PO SCH ×3 (09:04→20:27)
[2020-09-30] MEDS: DIVALPROEX 125 MG CAP.SPRINK PO SCH ×2 (09:04→20:29)
[2020-09-30] MEDS: NYSTATIN TOPICAL POWDER 15GM BOTTLE. TP SCH ×2 (09:04→20:25)
[2020-09-30] MEDS: POLYETHYLENE GLYCOL 3350 17 GM PACKET. PO SCH (09:05)
[2020-09-30] MEDS: LISINOPRIL 10 MG TABLET PO SCH (09:05)
[2020-09-30] MEDS: PANTOPRAZOLE 40 MG TABLET. PO SCH ×2 (12:18→17:43)
[2020-09-30 15:44] VITALS: BP 130/76
[2020-09-30] MEDS: LURASIDONE 40 MG TABLET. PO SCH (17:44)
[2020-09-30] MEDS: traZODone 100 MG TABLET. PO SCH (20:27)
[2020-09-30] MEDS: GABAPENTIN 100 MG CAPSULE. PO SCH (20:28)
[2020-09-30] MEDS: TAMSULOSIN 0.4 MG CAP.ER.24H. PO SCH (20:28)
--- NOTE | 2020-10-01 01:43 | PN ---
DATE: 09/30/2020 DATE OF SERVICE: 09/30/2020. SUBJECTIVE: The patient was seen today, met with the staff, chart reviewed. Staff reports still withdrawn, decreased psychomotor activity, stays in bed most of the time and still resistant to care. OBSERVATION: VITAL SIGNS: Temperature 97.6, blood pressure 139/78, pulse 79, respirations 16, O2 sat 92%. GENERAL: Slept about 4 hours last night. The patient's appetite is fair. MEDICATIONS: The patient's medications reviewed and not having any side effects. LABORATORY DATA: The patient's lab reviewed. ASSESSMENT: 1. Schizoaffective disorder, mixed with psychotic features. 2. Mild cognitive disorder. 3. History of bipolar disorder, mixed with psychotic features. PLAN: To continue with treatment. LENGTH OF STAY: Ten to 14 days. HARLEY/MARIBEL/MANUELITO DR: Jb TID: [id number]
[2020-10-01] MEDS: LEVOTHYROXINE 50 MCG TABLET PO SCH (06:00)
[2020-10-01 06:18] VITALS: BP 102/62
[2020-10-01] MEDS: NYSTATIN TOPICAL POWDER 15GM BOTTLE. TP SCH ×2 (09:00→20:08)
[2020-10-01] MEDS: VENLAFAXINE 50 MG TABLET. PO SCH ×3 (09:00→20:08)
[2020-10-01] MEDS: VITS A & D/LANOLIN TOPICAL OINTMENT 42GM TUBE. TP SCH ×2 (09:00→20:09)
[2020-10-01] MEDS: DIVALPROEX 125 MG CAP.SPRINK PO SCH ×2 (09:02→20:07)
[2020-10-01] MEDS: POLYETHYLENE GLYCOL 3350 17 GM PACKET. PO SCH (09:02)
[2020-10-01] MEDS: NEO/POLYMYX/DEXAMETH OPHTH SUSPENSION 5ML BOTTLE. OU SCH ×2 (09:02→20:08)
[2020-10-01] MEDS: LISINOPRIL 10 MG TABLET PO SCH (09:03)
[2020-10-01] MEDS: ASPIRIN ENTERIC COATED 81 MG TABLET.DR. PO SCH (09:03)
[2020-10-01] MEDS: PRIMIDONE 50 MG TABLET PO SCH (09:03)
[2020-10-01] MEDS: PANTOPRAZOLE 40 MG TABLET. PO SCH ×2 (12:46→16:13)
[2020-10-01] MEDS: LURASIDONE 40 MG TABLET. PO SCH (16:13)
[2020-10-01 16:20] VITALS: BP 145/75
[2020-10-01] MEDS: GABAPENTIN 100 MG CAPSULE. PO SCH (20:07)
[2020-10-01] MEDS: traZODone 100 MG TABLET. PO SCH (20:07)
[2020-10-01] MEDS: TAMSULOSIN 0.4 MG CAP.ER.24H. PO SCH (20:07)
--- NOTE | 2020-10-01 23:03 | PN ---
DATE: 10/01/2020 SUBJECTIVE: The patient was seen today, met with the staff. Chart was reviewed and also covering for Dr. Elder. The patient's behavior has improved. He is cooperative and compliant and pleasant. Still tends to withdraw to himself at times, have difficulty verbalizing his feelings and needs at times. OBSERVATION: VITAL SIGNS: Temperature 97.2, blood pressure 102/62, pulse 82, respirations 16, O2 sat 94%. GENERAL: Slept about 7 hours last night. CURRENT MEDICATIONS: The patient's medications reviewed not having any side effects. LABORATORY DATA: The patient's lab reviewed. ASSESSMENT: 1. Schizoaffective disorder, mixed with psychotic features. 2. Mild cognitive disorder. 3. History of bipolar disorder, mixed with psychotic features. PLAN: To continue with treatment. LENGTH OF STAY: 10 to [address]: Jb TID: [id number]
[2020-10-02] MEDS: LEVOTHYROXINE 50 MCG TABLET PO SCH (05:45)
[2020-10-02 06:02] VITALS: BP 93/67
[2020-10-02] MEDS: DIVALPROEX 125 MG CAP.SPRINK PO SCH ×2 (08:46→21:02)
[2020-10-02] MEDS: ASPIRIN ENTERIC COATED 81 MG TABLET.DR. PO SCH (08:46)
[2020-10-02] MEDS: PRIMIDONE 50 MG TABLET PO SCH (08:46)
[2020-10-02] MEDS: NEO/POLYMYX/DEXAMETH OPHTH SUSPENSION 5ML BOTTLE. OU SCH ×2 (08:46→21:07)
[2020-10-02] MEDS: VENLAFAXINE 50 MG TABLET. PO SCH ×3 (08:46→21:03)
[2020-10-02] MEDS: POLYETHYLENE GLYCOL 3350 17 GM PACKET. PO SCH (08:46)
[2020-10-02] MEDS: LISINOPRIL 10 MG TABLET PO SCH (08:47)
[2020-10-02] MEDS: NYSTATIN TOPICAL POWDER 15GM BOTTLE. TP SCH ×2 (08:48→21:07)
[2020-10-02] MEDS: VITS A & D/LANOLIN TOPICAL OINTMENT 42GM TUBE. TP SCH ×2 (08:48→21:07)
[2020-10-02] MEDS: GABAPENTIN 100 MG CAPSULE. PO SCH ×5 (08:50→21:03)
[2020-10-02] MEDS: PANTOPRAZOLE 40 MG TABLET. PO SCH ×2 (12:45→17:08)
[2020-10-02 15:28] VITALS: BP 142/76
[2020-10-02] MEDS: LURASIDONE 40 MG TABLET. PO SCH (17:08)
[2020-10-02] MEDS: TAMSULOSIN 0.4 MG CAP.ER.24H. PO SCH (21:03)
[2020-10-02] MEDS: traZODone 100 MG TABLET. PO SCH (21:03)
--- NOTE | 2020-10-03 01:07 | PN ---
DATE: 10/02/2020 SUBJECTIVE: The patient was seen today, met with the staff, chart reviewed. Staff reports increased confusion, but cooperative and compliant with the medications present at times. OBSERVATION: VITAL SIGNS: Temperature 98.2, blood pressure 93/67, pulse 95, respirations 16, O2 sat 93%. GENERAL: Slept about 8 hours last night. MEDICATIONS: The patient's medications reviewed not having any side effects. LABORATORY DATA: Reviewed. ASSESSMENT: 1. Schizoaffective disorder, mixed with psychotic features, mild cognitive disorder. 2. History of bipolar disorder, mixed psychotic features. PLAN: To continue with the treatment. LENGTH OF STAY: 10-[address]: Jb TID: [id number]
[2020-10-03] MEDS: ACETAMINOPHEN 325 MG TABLET PO PRN (04:25)
[2020-10-03 05:40] VITALS: BP 118/69
[2020-10-03] MEDS: LEVOTHYROXINE 50 MCG TABLET PO SCH (06:00)
[2020-10-03] MEDS: NEO/POLYMYX/DEXAMETH OPHTH SUSPENSION 5ML BOTTLE. OU SCH ×2 (09:29→20:41)
[2020-10-03] MEDS: POLYETHYLENE GLYCOL 3350 17 GM PACKET. PO SCH (09:29)
[2020-10-03] MEDS: ASPIRIN ENTERIC COATED 81 MG TABLET.DR. PO SCH (09:29)
[2020-10-03] MEDS: VENLAFAXINE 50 MG TABLET. PO SCH ×3 (09:30→20:39)
[2020-10-03] MEDS: PRIMIDONE 50 MG TABLET PO SCH (09:30)
[2020-10-03] MEDS: FUROSEMIDE 40 MG TABLET PO SCH (09:30)
[2020-10-03] MEDS: PANTOPRAZOLE 40 MG TABLET. PO SCH ×2 (09:30→17:29)
[2020-10-03] MEDS: DIVALPROEX 125 MG CAP.SPRINK PO SCH ×2 (09:31→20:40)
[2020-10-03] MEDS: LISINOPRIL 10 MG TABLET PO SCH (09:32)
[2020-10-03] MEDS: GABAPENTIN 100 MG CAPSULE. PO SCH ×3 (09:32→20:39)
[2020-10-03] MEDS: NYSTATIN TOPICAL POWDER 15GM BOTTLE. TP SCH ×2 (09:33→20:51)
[2020-10-03] MEDS: POTASSIUM CHLORIDE 20 MEQ TABLET.ER. PO SCH (09:33)
[2020-10-03] MEDS: VITS A & D/LANOLIN TOPICAL OINTMENT 42GM TUBE. TP SCH ×2 (09:34→20:51)
[2020-10-03 15:43] VITALS: BP 135/68
[2020-10-03] MEDS: LURASIDONE 40 MG TABLET. PO SCH ×2 (20:39→20:50)
[2020-10-03] MEDS: TAMSULOSIN 0.4 MG CAP.ER.24H. PO SCH (20:40)
[2020-10-03] MEDS: traZODone 100 MG TABLET. PO SCH (20:40)
--- NOTE | 2020-10-03 22:01 | PDOC ---
Exam Note: John Note: Please also refer to the separate dictated note~for this date of service dictated separately.~Patient seen individually. Discussed the patient with Nursing staff reviewed the chart.~Reviewed interim history and current functioning. Reviewed vital signs,~Labs/ Radiology~and current medications noted below. Continue current treatment with the changes noted in the dictated addendum note Assessment: Vital Signs/I&O: Vital Signs Date Time Temp Pulse Resp B/P (MAP) Pulse Ox O2 Delivery O2 Flow Rate FiO2 10/03/20 15:43 97.4 77 16 135/68 (90) 99 10/02/20 06:02 Room Air I & O 10/02/20 10/02/20 10/03/20 15:00 23:00 07:00 Intake Total 870 ml 940 ml Output Total 300 ml 900 ml 500 ml Balance 570 ml 40 ml -500 ml Current Medications: Meds: Current Medications Medications (Trade) Dose Ordered Sig/Russel Route PRN Reason Start Time Stop Time Status Last Admin Dose Admin Divalproex Sodium (Depakote Er) 1,500 mg HS PO 09/22/20 21:00 09/25/20 06:29 DC 09/24/20 19:48 Gabapentin (Neurontin) 200 mg HS PO 09/22/20 21:00 10/02/20 17:18 DC 10/01/20 20:07 Primidone (Mysoline) 50 mg DAILY PO 09/22/20 09:00 10/03/20 09:30 Trazodone HCl (Desyrel) 100 mg QHS PO 09/22/20 21:00 10/03/20 20:40 Trazodone HCl (Desyrel) 100 mg PRN QHS PRN PO repeat dose/insomnia 09/22/20 01:30 09/24/20 02:00 Lurasidone HCl (Latuda) 80 mg QEVNG PO 09/22/20 18:00 10/03/20 16:54 DC 10/02/20 17:08 Venlafaxine HCl (Effexor) 50 mg TID PO 09/22/20 09:00 10/03/20 20:39 Acetaminophen (Tylenol) 650 mg PRN Q6HRS PRN PO MILD PAIN / TEMP > 100.3'F 09/22/20 01:30 10/03/20 04:25 Multi-Ingredient Ointment (Analgesic Molt) 1 colin PRN QID PRN TP MUSCLE PAIN 09/22/20 01:30 Al Hydroxide/Mg Hydroxide (Mylanta Plus Xs) 15 ml PRN AFTMEALHC PRN PO DYSPEPSIA 09/22/20 01:30 Magnesium Hydroxide (Milk Of Magnesia) 2,400 mg PRN QHS PRN PO 1ST CHOICE CONSTIPATION 09/22/20 01:30 09/24/20 05:40 Acetaminophen (Tylenol) 650 mg PRN QID PRN PO MILD PAIN 1-3 09/22/20 11:45 UNV Aspirin (Aspirin Enteric Coated) 81 mg DAILY PO 09/22/20 12:00 10/03/20 09:29 Levothyroxine Sodium (Synthroid) 50 mcg DAILY06 PO 09/23/20 06:00 10/03/20 06:00 Lisinopril (Prinivil) 20 mg DAILY PO 09/22/20 12:00 10/03/20 09:32 Nystatin (Nystop) 1 colin PRN BID PRN TP groin for rash as needed 09/22/20 11:45 Pantoprazole Sodium (Protonix) 40 mg BIDACLD PO 09/22/20 16:30 10/03/20 17:29 Tamsulosin HCl (Flomax) 0.4 mg HS PO 09/22/20 21:00 10/03/20 20:40 Polyethylene Glycol (miraLAX) 17 gm DAILY PO 09/23/20 09:00 10/03/20 09:29 Nystatin (Nystop) 1 colin BID TP 09/23/20 09:00 10/03/20 20:51 Vitamin A/Vitamin D (Vitamin A & D Ointment) 1 colin BID TP 09/23/20 21:00 10/03/20 20:51 Bisacodyl (Dulcolax Tab) 5 mg PRN DAILY PRN PO 2ND CHOICE CONSTIPATION 09/24/20 20:15 09/29/20 20:37 Divalproex Sodium (Depakote Sprinkles) 750 mg BID PO 09/25/20 09:00 10/03/20 20:40 Neomycin/ Polymyxin/Bacitr/ Hydrocort (Cortisporin Ophth) 1 colin BID OU 09/25/20 17:00 Cancel Neomycin/ Polymyxin/ Dexamethasone (Maxitrol) 2 drop BID OU 09/25/20 17:00 10/03/20 20:41 Gabapentin (Neurontin) 100 mg BID92 PO 10/02/20 09:00 10/02/20 17:18 DC 10/02/20 12:45 Gabapentin (Neurontin) 400 mg HS PO 10/02/20 17:30 10/03/20 20:39 Gabapentin (Neurontin) 200 mg BID92 PO 10/02/20 17:30 10/03/20 14:32 Furosemide (Lasix) 40 mg DAILY PO 10/03/20 09:00 10/03/20 09:30 Potassium Chloride (Klor-Con) 20 meq DAILYWBKFT PO 10/03/20 08:00 10/03/20 09:33 Lurasidone HCl (Latuda) 80 mg QHS PO 10/03/20 19:45 10/03/20 23:00 10/03/20 20:39 Lurasidone HCl (Latuda) 80 mg QEVNG PO 10/04/20 18:00 Current Medications Medications (Trade) Dose Ordered Sig/Russel Route PRN Reason Start Time Stop Time Status Last Admin Dose Admin Furosemide (Lasix) 40 mg DAILY PO 10/03/20 09:00 10/03/20 09:30 Potassium Chloride (Klor-Con) 20 meq DAILYWBKFT PO 10/03/20 08:00 10/03/20 09:33 Lurasidone HCl (Latuda) 80 mg QHS PO 10/03/20 19:45 10/03/20 23:00 10/03/20 20:39 I have reviewed the current psychotropics carefully including drug interactions. Risk benefit ratio favors no change other than as noted in my dictated progress note. Diagnosis: Problems: (1) Bipolar 1 disorder, mixed (2) Anxiety disorder (3) Schizoaffective disorder, bipolar type (4) Impulse control disorder RADHA JARA MD October 03, 2020 22:01
[2020-10-04] MEDS: LEVOTHYROXINE 50 MCG TABLET PO SCH (05:21)
[2020-10-04] MEDS: BISACODYL TAB 5 MG TABLET.DR. PO PRN (05:37)
[2020-10-04 05:45] VITALS: BP 96/63
[2020-10-04] MEDS: ACETAMINOPHEN 325 MG TABLET PO PRN ×2 (08:11→21:26)
[2020-10-04] MEDS: ASPIRIN ENTERIC COATED 81 MG TABLET.DR. PO SCH (08:11)
[2020-10-04] MEDS: PRIMIDONE 50 MG TABLET PO SCH (08:12)
[2020-10-04] MEDS: POTASSIUM CHLORIDE 20 MEQ TABLET.ER. PO SCH (08:12)
[2020-10-04] MEDS: VENLAFAXINE 50 MG TABLET. PO SCH ×3 (08:12→20:08)
[2020-10-04] MEDS: PANTOPRAZOLE 40 MG TABLET. PO SCH ×2 (08:12→17:40)
[2020-10-04] MEDS: FUROSEMIDE 40 MG TABLET PO SCH (08:12)
[2020-10-04] MEDS: LISINOPRIL 10 MG TABLET PO SCH (08:12)
[2020-10-04] MEDS: VITS A & D/LANOLIN TOPICAL OINTMENT 42GM TUBE. TP SCH ×2 (08:13→20:09)
[2020-10-04] MEDS: DIVALPROEX 125 MG CAP.SPRINK PO SCH ×2 (08:13→20:08)
[2020-10-04] MEDS: GABAPENTIN 100 MG CAPSULE. PO SCH ×3 (08:13→20:09)
[2020-10-04] MEDS: NEO/POLYMYX/DEXAMETH OPHTH SUSPENSION 5ML BOTTLE. OU SCH ×2 (08:14→20:08)
[2020-10-04] MEDS: NYSTATIN TOPICAL POWDER 15GM BOTTLE. TP SCH ×2 (08:14→20:07)
[2020-10-04] MEDS: POLYETHYLENE GLYCOL 3350 17 GM PACKET. PO SCH (08:15)
[2020-10-04 15:44] VITALS: BP 115/68
[2020-10-04] MEDS: LURASIDONE 40 MG TABLET. PO SCH (17:41)
[2020-10-04] MEDS: traZODone 100 MG TABLET. PO SCH (20:08)
[2020-10-04] MEDS: TAMSULOSIN 0.4 MG CAP.ER.24H. PO SCH (20:08)
--- NOTE | 2020-10-04 21:45 | PDOC ---
Exam Note: John Note: Please also refer to the separate dictated note~for this date of service dictated separately.~Patient seen individually. Discussed the patient with Nursing staff reviewed the chart.~Reviewed interim history and current functioning. Reviewed vital signs,~Labs/ Radiology~and current medications noted below. Continue current treatment with the changes noted in the dictated addendum note Assessment: Vital Signs/I&O: Vital Signs Date Time Temp Pulse Resp B/P (MAP) Pulse Ox O2 Delivery O2 Flow Rate FiO2 10/04/20 15:44 97.0 82 18 115/68 (84) 93 10/02/20 06:02 Room Air I & O 10/03/20 10/03/20 10/04/20 15:00 23:00 07:00 Intake Total 720 ml 800 ml Output Total 1300 ml 350 ml Balance 720 ml -500 ml -350 ml Current Medications: Meds: Current Medications Medications (Trade) Dose Ordered Sig/Russel Route PRN Reason Start Time Stop Time Status Last Admin Dose Admin Divalproex Sodium (Depakote Er) 1,500 mg HS PO 09/22/20 21:00 09/25/20 06:29 DC 09/24/20 19:48 Gabapentin (Neurontin) 200 mg HS PO 09/22/20 21:00 10/02/20 17:18 DC 10/01/20 20:07 Primidone (Mysoline) 50 mg DAILY PO 09/22/20 09:00 10/04/20 08:12 Trazodone HCl (Desyrel) 100 mg QHS PO 09/22/20 21:00 10/04/20 20:08 Trazodone HCl (Desyrel) 100 mg PRN QHS PRN PO repeat dose/insomnia 09/22/20 01:30 09/24/20 02:00 Lurasidone HCl (Latuda) 80 mg QEVNG PO 09/22/20 18:00 10/03/20 16:54 DC 10/02/20 17:08 Venlafaxine HCl (Effexor) 50 mg TID PO 09/22/20 09:00 10/04/20 20:08 Acetaminophen (Tylenol) 650 mg PRN Q6HRS PRN PO MILD PAIN / TEMP > 100.3'F 09/22/20 01:30 10/04/20 21:26 Multi-Ingredient Ointment (Analgesic [place]) 1 colin PRN QID PRN TP MUSCLE PAIN 09/22/20 01:30 Al Hydroxide/Mg Hydroxide (Mylanta Plus Xs) 15 ml PRN AFTMEALHC PRN PO DYSPEPSIA 09/22/20 01:30 Magnesium Hydroxide (Milk Of Magnesia) 2,400 mg PRN QHS PRN PO 1ST CHOICE CONSTIPATION 09/22/20 01:30 09/24/20 05:40 Acetaminophen (Tylenol) 650 mg PRN QID PRN PO MILD PAIN 1-3 09/22/20 11:45 UNV Aspirin (Aspirin Enteric Coated) 81 mg DAILY PO 09/22/20 12:00 10/04/20 08:11 Levothyroxine Sodium (Synthroid) 50 mcg DAILY06 PO 09/23/20 06:00 10/04/20 05:21 Lisinopril (Prinivil) 20 mg DAILY PO 09/22/20 12:00 10/04/20 08:12 Nystatin (Nystop) 1 colin PRN BID PRN TP groin for rash as needed 09/22/20 11:45 Pantoprazole Sodium (Protonix) 40 mg BIDACLD PO 09/22/20 16:30 10/04/20 17:40 Tamsulosin HCl (Flomax) 0.4 mg HS PO 09/22/20 21:00 10/04/20 20:08 Polyethylene Glycol (miraLAX) 17 gm DAILY PO 09/23/20 09:00 10/04/20 08:15 Nystatin (Nystop) 1 colin BID TP 09/23/20 09:00 10/04/20 20:07 Vitamin A/Vitamin D (Vitamin A & D Ointment) 1 colin BID TP 09/23/20 21:00 10/04/20 20:09 Bisacodyl (Dulcolax Tab) 5 mg PRN DAILY PRN PO 2ND CHOICE CONSTIPATION 09/24/20 20:15 10/04/20 05:37 Divalproex Sodium (Depakote Sprinkles) 750 mg BID PO 09/25/20 09:00 10/04/20 20:08 Neomycin/ Polymyxin/Bacitr/ Hydrocort (Cortisporin Ophth) 1 colin BID OU 09/25/20 17:00 Cancel Neomycin/ Polymyxin/ Dexamethasone (Maxitrol) 2 drop BID OU 09/25/20 17:00 10/04/20 20:08 Gabapentin (Neurontin) 100 mg BID92 PO 10/02/20 09:00 10/02/20 17:18 DC 10/02/20 12:45 Gabapentin (Neurontin) 400 mg HS PO 10/02/20 17:30 10/04/20 20:09 Gabapentin (Neurontin) 200 mg BID92 PO 10/02/20 17:30 10/04/20 13:38 Furosemide (Lasix) 40 mg DAILY PO 10/03/20 09:00 10/04/20 08:12 Potassium Chloride (Klor-Con) 20 meq DAILYWBKFT PO 10/03/20 08:00 10/04/20 08:12 Lurasidone HCl (Latuda) 80 mg QHS PO 10/03/20 19:45 10/03/20 23:00 DC 10/03/20 20:39 Lurasidone HCl (Latuda) 80 mg QEVNG PO 10/04/20 18:00 10/04/20 17:41 Current Medications Medications (Trade) Dose Ordered Sig/Rsusel Route PRN Reason Start Time Stop Time Status Last Admin Dose Admin Lurasidone HCl (Latuda) 80 mg QEVNG PO 10/04/20 18:00 10/04/20 17:41 I have reviewed the current psychotropics carefully including drug interactions. Risk benefit ratio favors no change other than as noted in my dictated progress note. Diagnosis: Problems: (1) Bipolar 1 disorder, mixed (2) Anxiety disorder (3) Schizoaffective disorder, chronic condition with acute exacerbation (4) Schizoaffective disorder, bipolar type (5) Impulse control disorder (6) Mild cognitive impairment RADHA JARA MD October 04, 2020 21:45
[2020-10-05] MEDS: LEVOTHYROXINE 50 MCG TABLET PO SCH (05:23)
[2020-10-05 05:33] VITALS: BP 108/69
[2020-10-05 06:59] LABS: BASO # 0.1 x10^3/uL (0.0-0.2); BASO % 1 % (0-3); EOS # 0.7 x10^3/uL (0.0-0.7); EOS % 7 % (0-3); HEMATOCRIT 34.5 % (39.0-53.0); HEMOGLOBIN 11.5 g/dL (13.0-17.5); LYMPH # 2.8 x10^3/uL (1.0-4.8); LYMPH % 25 % (24-48); MEAN CORPUSCULAR HEMOGLOBIN 32 pg (25-35); MEAN CORPUSCULAR HGB CONC 33 g/dL (31-37); MEAN CORPUSCULAR VOLUME 95 fL (79-100); MONO # 1.5 x10^3/uL (0.0-1.1); MONO % 13 % (0-9); NEUT % 54 % (31-73); PLATELET COUNT 245 x10^3/uL (140-400); RED BLOOD COUNT 3.65 x10^6/uL (4.30-5.70); RED CELL DISTRIBUTION WIDTH 14.6 % (11.5-14.5); WHITE BLOOD COUNT 11.1 x10^3/uL (4.0-11.0)
[2020-10-05 07:15] LABS: ALBUMIN 2.7 g/dL (3.4-5.0); ALBUMIN/GLOBULIN RATIO 0.7 (1.0-1.7); ALK PHOS 68 U/L (46-116); ALT (SGPT) 25 U/L (16-63); ANION GAP 5 (6-14); AST (SGOT) 15 U/L (15-37); BLOOD UREA NITROGEN 28 mg/dL (8-26); BUN/CREATININE RATIO 23 (6-20); CALCIUM 9.3 mg/dL (8.5-10.1); CARBON DIOXIDE 34 mmol/L (21-32); CHLORIDE 105 mmol/L (98-107); CREATININE 1.2 mg/dL (0.7-1.3); GFR 59.2; GLUCOSE 104 mg/dL (70-99); POTASSIUM 4.6 mmol/L (3.5-5.1); SODIUM 144 mmol/L (136-145); TOTAL BILIRUBIN 0.3 mg/dL (0.2-1.0); TOTAL PROTEIN 6.6 g/dL (6.4-8.2)
[2020-10-05 07:32] LABS: VAL ACID 61 mcg/mL (50-100)
[2020-10-05] MEDS: LISINOPRIL 10 MG TABLET PO SCH (08:25)
[2020-10-05] MEDS: VENLAFAXINE 50 MG TABLET. PO SCH ×3 (08:27→20:09)
[2020-10-05] MEDS: ASPIRIN ENTERIC COATED 81 MG TABLET.DR. PO SCH (08:27)
[2020-10-05] MEDS: FUROSEMIDE 40 MG TABLET PO SCH (08:27)
[2020-10-05] MEDS: GABAPENTIN 100 MG CAPSULE. PO SCH ×3 (08:27→20:09)
--- NOTE | 2020-10-05 08:27 | PDOC ---
Exam Note: John Note: This note is a late entry for 10/03/2020 covers elements not covered in my initial note. Subjective: The patient was seen individually in the evening of 10/03/2020 with Jet LUNA, discussed and reviewed the chart. The patient slept 6-1/2 hours previous night. He spends much of the day in bed. He is getting Latuda 80 mg at 1800 hours. Review of Systems: Ambulation impaired in Broda chair. No CV, , pulmonary, eye, ENT system symptoms on review. Mental Status Exam: The patient is oriented to himself and situation. Speech has some latency, coherent. Abstraction is fair. Computation impaired. Language function intact. Attention span short. Mood and affect somewhat anxious and labile at times. Laboratory Data: Reviewed. Impression: Bipolar disorder mixed with psychotic features. Anxiety disorder u nspecified. Plan: I have carefully reviewed the patients current psychotropics and reviewed information with Dr. Schrader who had covered for me for the past 2 weeks. Continue psychotropics from initial note. Valproic acid level will be repeated and Depakote adjusted to reach therapeutic level. Assessment: Vital Signs/I&O: Vital Signs Date Time Temp Pulse Resp B/P (MAP) Pulse Ox O2 Delivery O2 Flow Rate FiO2 10/05/20 05:33 97.0 84 18 108/69 (82) 92 Room Air I & O 10/04/20 10/04/20 10/05/20 15:00 23:00 07:00 Intake Total 720 ml 1080 ml Output Total 1050 ml 275 ml Balance 720 ml 30 ml -275 ml Labs: Laboratory Tests Test 10/05/20 06:40 White Blood Count 11.1 x10^3/uL (4.0-11.0) H Red Blood Count 3.65 x10^6/uL (4.30-5.70) L Hemoglobin 11.5 g/dL (13.0-17.5) L Hematocrit 34.5 % (39.0-53.0) L Mean Corpuscular Volume 95 fL (79-100) Mean Corpuscular Hemoglobin 32 pg (25-35) Mean Corpuscular Hemoglobin Concent 33 g/dL (31-37) Red Cell Distribution Width 14.6 % (11.5-14.5) H Platelet Count 245 x10^3/uL (140-400) Neutrophils (%) (Auto) 54 % (31-73) Lymphocytes (%) (Auto) 25 % (24-48) Monocytes (%) (Auto) 13 % (0-9) H Eosinophils (%) (Auto) 7 % (0-3) H Basophils (%) (Auto) 1 % (0-3) Neutrophils # (Auto) 6.0 x10^3uL (1.8-7.7) Lymphocytes # (Auto) 2.8 x10^3/uL (1.0-4.8) Monocytes # (Auto) 1.5 x10^3/uL (0.0-1.1) H Eosinophils # (Auto) 0.7 x10^3/uL (0.0-0.7) Basophils # (Auto) 0.1 x10^3/uL (0.0-0.2) Sodium Level 144 mmol/L (136-145) Potassium Level 4.6 mmol/L (3.5-5.1) Chloride Level 105 mmol/L (98-107) Carbon Dioxide Level 34 mmol/L (21-32) H Anion Gap 5 (6-14) L Blood Urea Nitrogen 28 mg/dL (8-26) H Creatinine 1.2 mg/dL (0.7-1.3) Estimated GFR (Cockcroft-Gault) 59.2 BUN/Creatinine Ratio 23 (6-20) H Glucose Level 104 mg/dL (70-99) H Calcium Level 9.3 mg/dL (8.5-10.1) Total Bilirubin 0.3 mg/dL (0.2-1.0) Aspartate Amino Transferase (AST) 15 U/L (15-37) Alanine Aminotransferase (ALT) 25 U/L (16-63) Alkaline Phosphatase 68 U/L (46-116) Total Protein 6.6 g/dL (6.4-8.2) Albumin 2.7 g/dL (3.4-5.0) L Albumin/Globulin Ratio 0.7 (1.0-1.7) L Valproic Acid Level 61 mcg/mL (50-100) Valproic Acid Last Dose Date 10/04/20 Valproic Acid Last Dose Time 2100 Current Medications: Meds: Laboratory Tests Test 10/05/20 06:40 White Blood Count 11.1 x10^3/uL Red Blood Count 3.65 x10^6/uL Hemoglobin 11.5 g/dL Hematocrit 34.5 % Mean Corpuscular Volume 95 fL Mean Corpuscular Hemoglobin 32 pg Mean Corpuscular Hemoglobin Concent 33 g/dL Red Cell Distribution Width 14.6 % Platelet Count 245 x10^3/uL Neutrophils (%) (Auto) 54 % Lymphocytes (%) (Auto) 25 % Monocytes (%) (Auto) 13 % Eosinophils (%) (Auto) 7 % Basophils (%) (Auto) 1 % Neutrophils # (Auto) 6.0 x10^3uL Lymphocytes # (Auto) 2.8 x10^3/uL Monocytes # (Auto) 1.5 x10^3/uL Eosinophils # (Auto) 0.7 x10^3/uL Basophils # (Auto) 0.1 x10^3/uL Sodium Level 144 mmol/L Potassium Level 4.6 mmol/L Chloride Level 105 mmol/L Carbon Dioxide Level 34 mmol/L Anion Gap 5 Blood Urea Nitrogen 28 mg/dL Creatinine 1.2 mg/dL Estimated GFR (Cockcroft-Gault) 59.2 BUN/Creatinine Ratio 23 Glucose Level 104 mg/dL Calcium Level 9.3 mg/dL Total Bilirubin 0.3 mg/dL Aspartate Amino Transf (AST/SGOT) 15 U/L Alanine Aminotransferase (ALT/SGPT) 25 U/L Alkaline Phosphatase 68 U/L Total Protein 6.6 g/dL Albumin 2.7 g/dL Albumin/Globulin Ratio 0.7 Valproic Acid (Depakene) Level 61 mcg/mL Valproic Acid Last Dose Date 10/04/20 Valproic Acid Last Dose Time 2100 Current Medications Medications (Trade) Dose Ordered Sig/Russel Route PRN Reason Start Time Stop Time Status Last Admin Dose Admin Divalproex Sodium (Depakote Er) 1,500 mg HS PO 09/22/20 21:00 09/25/20 06:29 DC 09/24/20 19:48 Gabapentin (Neurontin) 200 mg HS PO 09/22/20 21:00 10/02/20 17:18 DC 10/01/20 20:07 Primidone (Mysoline) 50 mg DAILY PO 09/22/20 09:00 10/04/20 08:12 Trazodone HCl (Desyrel) 100 mg QHS PO 09/22/20 21:00 10/04/20 20:08 Trazodone HCl (Desyrel) 100 mg PRN QHS PRN PO repeat dose/insomnia 09/22/20 01:30 09/24/20 02:00 Lurasidone HCl (Latuda) 80 mg QEVNG PO 09/22/20 18:00 10/03/20 16:54 DC 10/02/20 17:08 Venlafaxine HCl (Effexor) 50 mg TID PO 09/22/20 09:00 10/04/20 20:08 Acetaminophen (Tylenol) 650 mg PRN Q6HRS PRN PO MILD PAIN / TEMP > 100.3'F 09/22/20 01:30 10/04/20 21:26 Multi-Ingredient Ointment (Analgesic [place]) 1 colin PRN QID PRN TP MUSCLE PAIN 09/22/20 01:30 Al Hydroxide/Mg Hydroxide (Mylanta Plus Xs) 15 ml PRN AFTMEALHC PRN PO DYSPEPSIA 09/22/20 01:30 Magnesium Hydroxide (Milk Of Magnesia) 2,400 mg PRN QHS PRN PO 1ST CHOICE CONSTIPATION 09/22/20 01:30 09/24/20 05:40 Acetaminophen (Tylenol) 650 mg PRN QID PRN PO MILD PAIN 1-3 09/22/20 11:45 UNV Aspirin (Aspirin Enteric Coated) 81 mg DAILY PO 09/22/20 12:00 10/04/20 08:11 Levothyroxine Sodium (Synthroid) 50 mcg DAILY06 PO 09/23/20 06:00 10/05/20 05:23 Lisinopril (Prinivil) 20 mg DAILY PO 09/22/20 12:00 10/04/20 08:12 Nystatin (Nystop) 1 colin PRN BID PRN TP groin for rash as needed 09/22/20 11:45 Pantoprazole Sodium (Protonix) 40 mg BIDACLD PO 09/22/20 16:30 10/04/20 17:40 Tamsulosin HCl (Flomax) 0.4 mg HS PO 09/22/20 21:00 10/04/20 20:08 Polyethylene Glycol (miraLAX) 17 gm DAILY PO 09/23/20 09:00 10/04/20 08:15 Nystatin (Nystop) 1 colin BID TP 09/23/20 09:00 10/04/20 20:07 Vitamin A/Vitamin D (Vitamin A & D Ointment) 1 colin BID TP 09/23/20 21:00 10/04/20 20:09 Bisacodyl (Dulcolax Tab) 5 mg PRN DAILY PRN PO 2ND CHOICE CONSTIPATION 09/24/20 20:15 10/04/20 05:37 Divalproex Sodium (Depakote Sprinkles) 750 mg BID PO 09/25/20 09:00 10/04/20 20:08 Neomycin/ Polymyxin/Bacitr/ Hydrocort (Cortisporin Ophth) 1 colin BID OU 09/25/20 17:00 Cancel Neomycin/ Polymyxin/ Dexamethasone (Maxitrol) 2 drop BID OU 09/25/20 17:00 10/04/20 20:08 Gabapentin (Neurontin) 100 mg BID92 PO 10/02/20 09:00 10/02/20 17:18 DC 10/02/20 12:45 Gabapentin (Neurontin) 400 mg HS PO 10/02/20 17:30 10/04/20 20:09 Gabapentin (Neurontin) 200 mg BID92 PO 10/02/20 17:30 10/04/20 13:38 Furosemide (Lasix) 40 mg DAILY PO 10/03/20 09:00 10/04/20 08:12 Potassium Chloride (Klor-Con) 20 meq DAILYWBKFT PO 10/03/20 08:00 10/04/20 08:12 Lurasidone HCl (Latuda) 80 mg QHS PO 10/03/20 19:45 10/03/20 23:00 DC 10/03/20 20:39 Lurasidone HCl (Latuda) 80 mg QEVNG PO 10/04/20 18:00 10/04/20 17:41 Current Medications Medications (Trade) Dose Ordered Sig/Russel Route PRN Reason Start Time Stop Time Status Last Admin Dose Admin Lurasidone HCl (Latuda) 80 mg QEVNG PO 10/04/20 18:00 10/04/20 17:41 I have reviewed the current psychotropics carefully including drug interactions. Risk benefit ratio favors no change other than as noted in my dictated progress note. Diagnosis: Problems: (1) Impulse control disorder (2) Anxiety disorder (3) Schizoaffective disorder, bipolar type (4) Bipolar disorder, current episode mixed, severe, with psychotic features RADHA JARA MD October 05, 2020 08:27
[2020-10-05] MEDS: DIVALPROEX 125 MG CAP.SPRINK PO SCH ×2 (08:28→20:09)
[2020-10-05] MEDS: PRIMIDONE 50 MG TABLET PO SCH (08:28)
[2020-10-05] MEDS: POTASSIUM CHLORIDE 20 MEQ TABLET.ER. PO SCH (08:28)
[2020-10-05] MEDS: POLYETHYLENE GLYCOL 3350 17 GM PACKET. PO SCH (08:29)
[2020-10-05] MEDS: NEO/POLYMYX/DEXAMETH OPHTH SUSPENSION 5ML BOTTLE. OU SCH ×2 (08:29→20:09)
[2020-10-05] MEDS: NYSTATIN TOPICAL POWDER 15GM BOTTLE. TP SCH ×2 (08:29→20:09)
[2020-10-05] MEDS: PANTOPRAZOLE 40 MG TABLET. PO SCH ×2 (08:29→17:32)
--- NOTE | 2020-10-05 08:53 | PDOC ---
Exam Note: John Note: This note is a late entry for 10/04/2020 covers elements not covered in my initial note. Subjective: The patient was seen individually in the evening of 10/04/2020 with Jet LUNA, discussed and reviewed the chart. The patient slept 6-1/2 hours previous night. He has been somewhat withdrawn into his room, calmer, compliant with medications. There is a question of drug interaction with Latuda and Primidone. We will check with pharmacy on specifics of interaction and then decide whether to make any changes. He has a Esqueda in place. Review of Systems: Ambulation impaired in Broda chair. No CV, , pulmonary, eye, ENT system symptoms on review. Mental Status Exam: The patient is oriented to himself and situation. Speech has some latency, coherent. Abstraction is fair. Computation impaired. Language function intact. Attention span short. Mood and affect somewhat anxious and labile at times. Laboratory Data: Reviewed. Impression: Bipolar disorder mixed with psychotic features. Anxiety disorder unspecified. Plan: Continue psychotropics from initial note. Check valproic acid level. Adjust to reach therapeutic level. Maintain rest of the psychotropics unchanged for now. Assessment: Vital Signs/I&O: Vital Signs Date Time Temp Pulse Resp B/P (MAP) Pulse Ox O2 Delivery O2 Flow Rate FiO2 10/05/20 08:25 84 108/69 10/05/20 05:33 97.0 18 92 Room Air I & O 10/04/20 10/04/20 10/05/20 15:00 23:00 07:00 Intake Total 720 ml 1080 ml Output Total 1050 ml 275 ml Balance 720 ml 30 ml -275 ml Labs: Laboratory Tests Test 10/05/20 06:40 White Blood Count 11.1 x10^3/uL (4.0-11.0) H Red Blood Count 3.65 x10^6/uL (4.30-5.70) L Hemoglobin 11.5 g/dL (13.0-17.5) L Hematocrit 34.5 % (39.0-53.0) L Mean Corpuscular Volume 95 fL (79-100) Mean Corpuscular Hemoglobin 32 pg (25-35) Mean Corpuscular Hemoglobin Concent 33 g/dL (31-37) Red Cell Distribution Width 14.6 % (11.5-14.5) H Platelet Count 245 x10^3/uL (140-400) Neutrophils (%) (Auto) 54 % (31-73) Lymphocytes (%) (Auto) 25 % (24-48) Monocytes (%) (Auto) 13 % (0-9) H Eosinophils (%) (Auto) 7 % (0-3) H Basophils (%) (Auto) 1 % (0-3) Neutrophils # (Auto) 6.0 x10^3uL (1.8-7.7) Lymphocytes # (Auto) 2.8 x10^3/uL (1.0-4.8) Monocytes # (Auto) 1.5 x10^3/uL (0.0-1.1) H Eosinophils # (Auto) 0.7 x10^3/uL (0.0-0.7) Basophils # (Auto) 0.1 x10^3/uL (0.0-0.2) Sodium Level 144 mmol/L (136-145) Potassium Level 4.6 mmol/L (3.5-5.1) Chloride Level 105 mmol/L (98-107) Carbon Dioxide Level 34 mmol/L (21-32) H Anion Gap 5 (6-14) L Blood Urea Nitrogen 28 mg/dL (8-26) H Creatinine 1.2 mg/dL (0.7-1.3) Estimated GFR (Cockcroft-Gault) 59.2 BUN/Creatinine Ratio 23 (6-20) H Glucose Level 104 mg/dL (70-99) H Calcium Level 9.3 mg/dL (8.5-10.1) Total Bilirubin 0.3 mg/dL (0.2-1.0) Aspartate Amino Transferase (AST) 15 U/L (15-37) Alanine Aminotransferase (ALT) 25 U/L (16-63) Alkaline Phosphatase 68 U/L (46-116) Total Protein 6.6 g/dL (6.4-8.2) Albumin 2.7 g/dL (3.4-5.0) L Albumin/Globulin Ratio 0.7 (1.0-1.7) L Valproic Acid Level 61 mcg/mL (50-100) Valproic Acid Last Dose Date 10/04/20 Valproic Acid Last Dose Time 2100 Current Medications: Meds: Laboratory Tests Test 10/05/20 06:40 White Blood Count 11.1 x10^3/uL Red Blood Count 3.65 x10^6/uL Hemoglobin 11.5 g/dL Hematocrit 34.5 % Mean Corpuscular Volume 95 fL Mean Corpuscular Hemoglobin 32 pg Mean Corpuscular Hemoglobin Concent 33 g/dL Red Cell Distribution Width 14.6 % Platelet Count 245 x10^3/uL Neutrophils (%) (Auto) 54 % Lymphocytes (%) (Auto) 25 % Monocytes (%) (Auto) 13 % Eosinophils (%) (Auto) 7 % Basophils (%) (Auto) 1 % Neutrophils # (Auto) 6.0 x10^3uL Lymphocytes # (Auto) 2.8 x10^3/uL Monocytes # (Auto) 1.5 x10^3/uL Eosinophils # (Auto) 0.7 x10^3/uL Basophils # (Auto) 0.1 x10^3/uL Sodium Level 144 mmol/L Potassium Level 4.6 mmol/L Chloride Level 105 mmol/L Carbon Dioxide Level 34 mmol/L Anion Gap 5 Blood Urea Nitrogen 28 mg/dL Creatinine 1.2 mg/dL Estimated GFR (Cockcroft-Gault) 59.2 BUN/Creatinine Ratio 23 Glucose Level 104 mg/dL Calcium Level 9.3 mg/dL Total Bilirubin 0.3 mg/dL Aspartate Amino Transf (AST/SGOT) 15 U/L Alanine Aminotransferase (ALT/SGPT) 25 U/L Alkaline Phosphatase 68 U/L Total Protein 6.6 g/dL Albumin 2.7 g/dL Albumin/Globulin Ratio 0.7 Valproic Acid (Depakene) Level 61 mcg/mL Valproic Acid Last Dose Date 10/04/20 Valproic Acid Last Dose Time 2100 Current Medications Medications (Trade) Dose Ordered Sig/Russle Route PRN Reason Start Time Stop Time Status Last Admin Dose Admin Divalproex Sodium (Depakote Er) 1,500 mg HS PO 09/22/20 21:00 09/25/20 06:29 DC 09/24/20 19:48 Gabapentin (Neurontin) 200 mg HS PO 09/22/20 21:00 10/02/20 17:18 DC 10/01/20 20:07 Primidone (Mysoline) 50 mg DAILY PO 09/22/20 09:00 10/05/20 08:28 Trazodone HCl (Desyrel) 100 mg QHS PO 09/22/20 21:00 10/04/20 20:08 Trazodone HCl (Desyrel) 100 mg PRN QHS PRN PO repeat dose/insomnia 09/22/20 01:30 09/24/20 02:00 Lurasidone HCl (Latuda) 80 mg QEVNG PO 09/22/20 18:00 10/03/20 16:54 DC 10/02/20 17:08 Venlafaxine HCl (Effexor) 50 mg TID PO 09/22/20 09:00 10/05/20 08:27 Acetaminophen (Tylenol) 650 mg PRN Q6HRS PRN PO MILD PAIN / TEMP > 100.3'F 09/22/20 01:30 10/04/20 21:26 Multi-Ingredient Ointment (Analgesic [place]) 1 colin PRN QID PRN TP MUSCLE PAIN 09/22/20 01:30 Al Hydroxide/Mg Hydroxide (Mylanta Plus Xs) 15 ml PRN AFTMEALHC PRN PO DYSPEPSIA 09/22/20 01:30 Magnesium Hydroxide (Milk Of Magnesia) 2,400 mg PRN QHS PRN PO 1ST CHOICE CONSTIPATION 09/22/20 01:30 09/24/20 05:40 Acetaminophen (Tylenol) 650 mg PRN QID PRN PO MILD PAIN 1-3 09/22/20 11:45 UNV Aspirin (Aspirin Enteric Coated) 81 mg DAILY PO 09/22/20 12:00 10/05/20 08:27 Levothyroxine Sodium (Synthroid) 50 mcg DAILY06 PO 09/23/20 06:00 10/05/20 05:23 Lisinopril (Prinivil) 20 mg DAILY PO 09/22/20 12:00 10/05/20 08:25 Nystatin (Nystop) 1 colin PRN BID PRN TP groin for rash as needed 09/22/20 11:45 Pantoprazole Sodium (Protonix) 40 mg BIDACLD PO 09/22/20 16:30 10/05/20 08:29 Tamsulosin HCl (Flomax) 0.4 mg HS PO 09/22/20 21:00 10/04/20 20:08 Polyethylene Glycol (miraLAX) 17 gm DAILY PO 09/23/20 09:00 10/05/20 08:29 Nystatin (Nystop) 1 colin BID TP 09/23/20 09:00 10/05/20 08:29 Vitamin A/Vitamin D (Vitamin A & D Ointment) 1 colin BID TP 09/23/20 21:00 10/04/20 20:09 Bisacodyl (Dulcolax Tab) 5 mg PRN DAILY PRN PO 2ND CHOICE CONSTIPATION 09/24/20 20:15 10/04/20 05:37 Divalproex Sodium (Depakote Sprinkles) 750 mg BID PO 09/25/20 09:00 10/05/20 08:28 Neomycin/ Polymyxin/Bacitr/ Hydrocort (Cortisporin Ophth) 1 colin BID OU 09/25/20 17:00 Cancel Neomycin/ Polymyxin/ Dexamethasone (Maxitrol) 2 drop BID OU 09/25/20 17:00 10/05/20 08:29 Gabapentin (Neurontin) 100 mg BID92 PO 10/02/20 09:00 10/02/20 17:18 DC 10/02/20 12:45 Gabapentin (Neurontin) 400 mg HS PO 10/02/20 17:30 10/04/20 20:09 Gabapentin (Neurontin) 200 mg BID92 PO 10/02/20 17:30 10/05/20 08:27 Furosemide (Lasix) 40 mg DAILY PO 10/03/20 09:00 10/05/20 08:27 Potassium Chloride (Klor-Con) 20 meq DAILYWBKFT PO 10/03/20 08:00 10/05/20 08:28 Lurasidone HCl (Latuda) 80 mg QHS PO 10/03/20 19:45 10/03/20 23:00 DC 10/03/20 20:39 Lurasidone HCl (Latuda) 80 mg QEVNG PO 10/04/20 18:00 10/04/20 17:41 Current Medications Medications (Trade) Dose Ordered Sig/Russel Route PRN Reason Start Time Stop Time Status Last Admin Dose Admin Lurasidone HCl (Latuda) 80 mg QEVNG PO 10/04/20 18:00 10/04/20 17:41 I have reviewed the current psychotropics carefully including drug interactions. Risk benefit ratio favors no change other than as noted in my dictated progress note. Diagnosis: Problems: (1) Bipolar disorder, current episode mixed, severe, with psychotic features (2) Anxiety disorder (3) Schizoaffective disorder, bipolar type (4) Impulse control disorder RADHA JARA MD October 05, 2020 08:53
[2020-10-05] MEDS: VITS A & D/LANOLIN TOPICAL OINTMENT 42GM TUBE. TP SCH ×2 (10:45→20:08)
[2020-10-05 16:00] VITALS: BP 137/83
[2020-10-05] MEDS: LURASIDONE 40 MG TABLET. PO SCH (17:32)
[2020-10-05] MEDS: TAMSULOSIN 0.4 MG CAP.ER.24H. PO SCH (20:09)
[2020-10-05] MEDS: traZODone 100 MG TABLET. PO SCH (20:09)
--- NOTE | 2020-10-05 22:09 | PDOC ---
Exam Note: John Note: Please also refer to the separate dictated note~for this date of service dictated separately.~Patient seen individually. Discussed the patient with Nursing staff reviewed the chart.~Reviewed interim history and current functioning. Reviewed vital signs,~Labs/ Radiology~and current medications noted below. Continue current treatment with the changes noted in the dictated addendum note Assessment: Vital Signs/I&O: Vital Signs Date Time Temp Pulse Resp B/P (MAP) Pulse Ox O2 Delivery O2 Flow Rate FiO2 10/05/20 16:00 96.8 84 16 137/83 (101) 97 10/05/20 05:33 Room Air I & O 10/04/20 10/04/20 10/05/20 15:00 23:00 07:00 Intake Total 720 ml 1080 ml Output Total 1050 ml 275 ml Balance 720 ml 30 ml -275 ml Labs: Laboratory Tests Test 10/05/20 06:40 White Blood Count 11.1 x10^3/uL (4.0-11.0) H Red Blood Count 3.65 x10^6/uL (4.30-5.70) L Hemoglobin 11.5 g/dL (13.0-17.5) L Hematocrit 34.5 % (39.0-53.0) L Mean Corpuscular Volume 95 fL (79-100) Mean Corpuscular Hemoglobin 32 pg (25-35) Mean Corpuscular Hemoglobin Concent 33 g/dL (31-37) Red Cell Distribution Width 14.6 % (11.5-14.5) H Platelet Count 245 x10^3/uL (140-400) Neutrophils (%) (Auto) 54 % (31-73) Lymphocytes (%) (Auto) 25 % (24-48) Monocytes (%) (Auto) 13 % (0-9) H Eosinophils (%) (Auto) 7 % (0-3) H Basophils (%) (Auto) 1 % (0-3) Neutrophils # (Auto) 6.0 x10^3uL (1.8-7.7) Lymphocytes # (Auto) 2.8 x10^3/uL (1.0-4.8) Monocytes # (Auto) 1.5 x10^3/uL (0.0-1.1) H Eosinophils # (Auto) 0.7 x10^3/uL (0.0-0.7) Basophils # (Auto) 0.1 x10^3/uL (0.0-0.2) Sodium Level 144 mmol/L (136-145) Potassium Level 4.6 mmol/L (3.5-5.1) Chloride Level 105 mmol/L (98-107) Carbon Dioxide Level 34 mmol/L (21-32) H Anion Gap 5 (6-14) L Blood Urea Nitrogen 28 mg/dL (8-26) H Creatinine 1.2 mg/dL (0.7-1.3) Estimated GFR (Cockcroft-Gault) 59.2 BUN/Creatinine Ratio 23 (6-20) H Glucose Level 104 mg/dL (70-99) H Calcium Level 9.3 mg/dL (8.5-10.1) Total Bilirubin 0.3 mg/dL (0.2-1.0) Aspartate Amino Transferase (AST) 15 U/L (15-37) Alanine Aminotransferase (ALT) 25 U/L (16-63) Alkaline Phosphatase 68 U/L (46-116) Total Protein 6.6 g/dL (6.4-8.2) Albumin 2.7 g/dL (3.4-5.0) L Albumin/Globulin Ratio 0.7 (1.0-1.7) L Valproic Acid Level 61 mcg/mL (50-100) Valproic Acid Last Dose Date 10/04/20 Valproic Acid Last Dose Time 2100 Current Medications: Meds: Laboratory Tests Test 10/05/20 06:40 White Blood Count 11.1 x10^3/uL Red Blood Count 3.65 x10^6/uL Hemoglobin 11.5 g/dL Hematocrit 34.5 % Mean Corpuscular Volume 95 fL Mean Corpuscular Hemoglobin 32 pg Mean Corpuscular Hemoglobin Concent 33 g/dL Red Cell Distribution Width 14.6 % Platelet Count 245 x10^3/uL Neutrophils (%) (Auto) 54 % Lymphocytes (%) (Auto) 25 % Monocytes (%) (Auto) 13 % Eosinophils (%) (Auto) 7 % Basophils (%) (Auto) 1 % Neutrophils # (Auto) 6.0 x10^3uL Lymphocytes # (Auto) 2.8 x10^3/uL Monocytes # (Auto) 1.5 x10^3/uL Eosinophils # (Auto) 0.7 x10^3/uL Basophils # (Auto) 0.1 x10^3/uL Sodium Level 144 mmol/L Potassium Level 4.6 mmol/L Chloride Level 105 mmol/L Carbon Dioxide Level 34 mmol/L Anion Gap 5 Blood Urea Nitrogen 28 mg/dL Creatinine 1.2 mg/dL Estimated GFR (Cockcroft-Gault) 59.2 BUN/Creatinine Ratio 23 Glucose Level 104 mg/dL Calcium Level 9.3 mg/dL Total Bilirubin 0.3 mg/dL Aspartate Amino Transf (AST/SGOT) 15 U/L Alanine Aminotransferase (ALT/SGPT) 25 U/L Alkaline Phosphatase 68 U/L Total Protein 6.6 g/dL Albumin 2.7 g/dL Albumin/Globulin Ratio 0.7 Valproic Acid (Depakene) Level 61 mcg/mL Valproic Acid Last Dose Date 10/04/20 Valproic Acid Last Dose Time 2100 Current Medications Medications (Trade) Dose Ordered Sig/Russel Route PRN Reason Start Time Stop Time Status Last Admin Dose Admin Divalproex Sodium (Depakote Er) 1,500 mg HS PO 09/22/20 21:00 09/25/20 06:29 DC 09/24/20 19:48 Gabapentin (Neurontin) 200 mg HS PO 09/22/20 21:00 10/02/20 17:18 DC 10/01/20 20:07 Primidone (Mysoline) 50 mg DAILY PO 09/22/20 09:00 10/05/20 08:28 Trazodone HCl (Desyrel) 100 mg QHS PO 09/22/20 21:00 10/05/20 20:09 Trazodone HCl (Desyrel) 100 mg PRN QHS PRN PO repeat dose/insomnia 09/22/20 01:30 09/24/20 02:00 Lurasidone HCl (Latuda) 80 mg QEVNG PO 09/22/20 18:00 10/03/20 16:54 DC 10/02/20 17:08 Venlafaxine HCl (Effexor) 50 mg TID PO 09/22/20 09:00 10/05/20 20:09 Acetaminophen (Tylenol) 650 mg PRN Q6HRS PRN PO MILD PAIN / TEMP > 100.3'F 09/22/20 01:30 10/04/20 21:26 Multi-Ingredient Ointment (Analgesic [place]) 1 colin PRN QID PRN TP MUSCLE PAIN 09/22/20 01:30 Al Hydroxide/Mg Hydroxide (Mylanta Plus Xs) 15 ml PRN AFTMEALHC PRN PO DYSPEPSIA 09/22/20 01:30 Magnesium Hydroxide (Milk Of Magnesia) 2,400 mg PRN QHS PRN PO 1ST CHOICE CONSTIPATION 09/22/20 01:30 09/24/20 05:40 Acetaminophen (Tylenol) 650 mg PRN QID PRN PO MILD PAIN 1-3 09/22/20 11:45 UNV Aspirin (Aspirin Enteric Coated) 81 mg DAILY PO 09/22/20 12:00 10/05/20 08:27 Levothyroxine Sodium (Synthroid) 50 mcg DAILY06 PO 09/23/20 06:00 10/05/20 05:23 Lisinopril (Prinivil) 20 mg DAILY PO 09/22/20 12:00 10/05/20 08:25 Nystatin (Nystop) 1 colin PRN BID PRN TP groin for rash as needed 09/22/20 11:45 Pantoprazole Sodium (Protonix) 40 mg BIDACLD PO 09/22/20 16:30 10/05/20 17:32 Tamsulosin HCl (Flomax) 0.4 mg HS PO 09/22/20 21:00 10/05/20 20:09 Polyethylene Glycol (miraLAX) 17 gm DAILY PO 09/23/20 09:00 10/05/20 08:29 Nystatin (Nystop) 1 colin BID TP 09/23/20 09:00 10/05/20 20:09 Vitamin A/Vitamin D (Vitamin A & D Ointment) 1 colin BID TP 09/23/20 21:00 10/05/20 20:08 Bisacodyl (Dulcolax Tab) 5 mg PRN DAILY PRN PO 2ND CHOICE CONSTIPATION 09/24/20 20:15 10/04/20 05:37 Divalproex Sodium (Depakote Sprinkles) 750 mg BID PO 09/25/20 09:00 10/05/20 20:09 Neomycin/ Polymyxin/Bacitr/ Hydrocort (Cortisporin Ophth) 1 colin BID OU 09/25/20 17:00 Cancel Neomycin/ Polymyxin/ Dexamethasone (Maxitrol) 2 drop BID OU 09/25/20 17:00 10/05/20 20:09 Gabapentin (Neurontin) 100 mg BID92 PO 10/02/20 09:00 10/02/20 17:18 DC 10/02/20 12:45 Gabapentin (Neurontin) 400 mg HS PO 10/02/20 17:30 10/05/20 20:09 Gabapentin (Neurontin) 200 mg BID92 PO 10/02/20 17:30 10/05/20 13:09 Furosemide (Lasix) 40 mg DAILY PO 10/03/20 09:00 10/05/20 08:27 Potassium Chloride (Klor-Con) 20 meq DAILYWBKFT PO 10/03/20 08:00 10/05/20 08:28 Lurasidone HCl (Latuda) 80 mg QHS PO 10/03/20 19:45 10/03/20 23:00 DC 10/03/20 20:39 Lurasidone HCl (Latuda) 80 mg QEVNG PO 10/04/20 18:00 10/05/20 17:32 I have reviewed the current psychotropics carefully including drug interactions. Risk benefit ratio favors no change other than as noted in my dictated progress note. Diagnosis: Problems: (1) Bipolar disorder, current episode mixed, severe, with psychotic features (2) Anxiety disorder (3) Schizoaffective disorder, bipolar type (4) Impulse control disorder RADHA JARA MD October 05, 2020 22:09
[2020-10-06] MEDS: LEVOTHYROXINE 50 MCG TABLET PO SCH (05:46)
[2020-10-06] MEDS: NEO/POLYMYX/DEXAMETH OPHTH SUSPENSION 5ML BOTTLE. OU SCH ×3 (05:46→20:33)
[2020-10-06 06:20] VITALS: BP 99/63
--- NOTE | 2020-10-06 06:52 | PDOC ---
Exam Note: John Note: This note is a late entry for 10/05/2020 covers elements not covered in my initial note. Subjective: The patient was seen individually in the evening of 10/05/2020 with Jet LUNA, discussed and reviewed the chart. The patient slept 6-1/2 hours previous night. Yesterday the patient was not calling out. Today he has been little more anxious. Valproic acid level is therapeutic at 61. Review of Systems: Ambulation impaired in Broda chair. No CV, , pulmonary, eye, ENT system symptoms on review. Mental Status Exam: The patient is oriented to himself and situation. Speech has some latency, coherent. Abstraction is fair. Computation impaired. Language function intact. Attention span short. Mood and affect little more anxious. Laboratory Data: Reviewed. Impression: Bipolar disorder mixed with psychotic features. Anxiety disorder unspecified. Plan: Continue psychotropics from initial note. Valproic acid level is therapeutic. We will continue dosage unchanged. Assessment: Vital Signs/I&O: Vital Signs Date Time Temp Pulse Resp B/P (MAP) Pulse Ox O2 Delivery O2 Flow Rate FiO2 10/06/20 06:20 97.8 87 20 99/63 (75) 94 Room Air I & O 10/05/20 10/05/20 10/06/20 15:00 23:00 07:00 Intake Total 360 ml 800 ml Output Total 1750 ml 325 ml Balance 360 ml -950 ml -325 ml Current Medications: Meds: Current Medications Medications (Trade) Dose Ordered Sig/Russel Route PRN Reason Start Time Stop Time Status Last Admin Dose Admin Divalproex Sodium (Depakote Er) 1,500 mg HS PO 09/22/20 21:00 09/25/20 06:29 DC 09/24/20 19:48 Gabapentin (Neurontin) 200 mg HS PO 09/22/20 21:00 10/02/20 17:18 DC 10/01/20 20:07 Primidone (Mysoline) 50 mg DAILY PO 09/22/20 09:00 10/05/20 08:28 Trazodone HCl (Desyrel) 100 mg QHS PO 09/22/20 21:00 10/05/20 20:09 Trazodone HCl (Desyrel) 100 mg PRN QHS PRN PO repeat dose/insomnia 09/22/20 01:30 09/24/20 02:00 Lurasidone HCl (Latuda) 80 mg QEVNG PO 09/22/20 18:00 10/03/20 16:54 DC 10/02/20 17:08 Venlafaxine HCl (Effexor) 50 mg TID PO 09/22/20 09:00 10/05/20 20:09 Acetaminophen (Tylenol) 650 mg PRN Q6HRS PRN PO MILD PAIN / TEMP > 100.3'F 09/22/20 01:30 10/04/20 21:26 Multi-Ingredient Ointment (Analgesic [place]) 1 colin PRN QID PRN TP MUSCLE PAIN 09/22/20 01:30 Al Hydroxide/Mg Hydroxide (Mylanta Plus Xs) 15 ml PRN AFTMEALHC PRN PO DYSPEPSIA 09/22/20 01:30 Magnesium Hydroxide (Milk Of Magnesia) 2,400 mg PRN QHS PRN PO 1ST CHOICE CONSTIPATION 09/22/20 01:30 09/24/20 05:40 Acetaminophen (Tylenol) 650 mg PRN QID PRN PO MILD PAIN 1-3 09/22/20 11:45 UNV Aspirin (Aspirin Enteric Coated) 81 mg DAILY PO 09/22/20 12:00 10/05/20 08:27 Levothyroxine Sodium (Synthroid) 50 mcg DAILY06 PO 09/23/20 06:00 10/06/20 05:46 Lisinopril (Prinivil) 20 mg DAILY PO 09/22/20 12:00 10/05/20 08:25 Nystatin (Nystop) 1 colin PRN BID PRN TP groin for rash as needed 09/22/20 11:45 Pantoprazole Sodium (Protonix) 40 mg BIDACLD PO 09/22/20 16:30 10/05/20 17:32 Tamsulosin HCl (Flomax) 0.4 mg HS PO 09/22/20 21:00 10/05/20 20:09 Polyethylene Glycol (miraLAX) 17 gm DAILY PO 09/23/20 09:00 10/05/20 08:29 Nystatin (Nystop) 1 colin BID TP 09/23/20 09:00 10/05/20 20:09 Vitamin A/Vitamin D (Vitamin A & D Ointment) 1 colin BID TP 09/23/20 21:00 10/05/20 20:08 Bisacodyl (Dulcolax Tab) 5 mg PRN DAILY PRN PO 2ND CHOICE CONSTIPATION 09/24/20 20:15 10/04/20 05:37 Divalproex Sodium (Depakote Sprinkles) 750 mg BID PO 09/25/20 09:00 10/05/20 20:09 Neomycin/ Polymyxin/Bacitr/ Hydrocort (Cortisporin Ophth) 1 colin BID OU 09/25/20 17:00 Cancel Neomycin/ Polymyxin/ Dexamethasone (Maxitrol) 2 drop BID OU 09/25/20 17:00 10/06/20 05:46 Gabapentin (Neurontin) 100 mg BID92 PO 10/02/20 09:00 10/02/20 17:18 DC 10/02/20 12:45 Gabapentin (Neurontin) 400 mg HS PO 10/02/20 17:30 10/05/20 20:09 Gabapentin (Neurontin) 200 mg BID92 PO 10/02/20 17:30 10/05/20 13:09 Furosemide (Lasix) 40 mg DAILY PO 10/03/20 09:00 10/05/20 08:27 Potassium Chloride (Klor-Con) 20 meq DAILYWBKFT PO 10/03/20 08:00 10/05/20 08:28 Lurasidone HCl (Latuda) 80 mg QHS PO 10/03/20 19:45 10/03/20 23:00 DC 10/03/20 20:39 Lurasidone HCl (Latuda) 80 mg QEVNG PO 10/04/20 18:00 10/05/20 17:32 I have reviewed the current psychotropics carefully including drug interactions. Risk benefit ratio favors no change other than as noted in my dictated progress note. Diagnosis: Problems: (1) Bipolar disorder, current episode mixed, severe, with psychotic features (2) Schizoaffective disorder, bipolar type (3) Anxiety disorder (4) Impulse control disorder RADHA JARA MD October 06, 2020 06:52
[2020-10-06] MEDS: NYSTATIN TOPICAL POWDER 15GM BOTTLE. TP SCH ×2 (08:48→20:33)
[2020-10-06] MEDS: POLYETHYLENE GLYCOL 3350 17 GM PACKET. PO SCH (08:48)
[2020-10-06] MEDS: PRIMIDONE 50 MG TABLET PO SCH (08:48)
[2020-10-06] MEDS: POTASSIUM CHLORIDE 20 MEQ TABLET.ER. PO SCH (08:48)
[2020-10-06] MEDS: VENLAFAXINE 50 MG TABLET. PO SCH ×3 (08:49→20:34)
[2020-10-06] MEDS: ASPIRIN ENTERIC COATED 81 MG TABLET.DR. PO SCH (08:49)
[2020-10-06] MEDS: FUROSEMIDE 40 MG TABLET PO SCH (08:49)
[2020-10-06] MEDS: GABAPENTIN 100 MG CAPSULE. PO SCH ×3 (08:49→20:34)
[2020-10-06] MEDS: DIVALPROEX 125 MG CAP.SPRINK PO SCH ×2 (08:55→20:34)
[2020-10-06] MEDS: LISINOPRIL 10 MG TABLET PO SCH (08:55)
[2020-10-06] MEDS: VITS A & D/LANOLIN TOPICAL OINTMENT 42GM TUBE. TP SCH ×2 (09:00→20:33)
[2020-10-06] MEDS ORDERED: FUROSEMIDE 40 MG TABLET PO ONE (10:30)
[2020-10-06] MEDS: PANTOPRAZOLE 40 MG TABLET. PO SCH ×2 (13:24→20:34)
[2020-10-06 15:53] VITALS: BP 122/70
[2020-10-06] MEDS: TAMSULOSIN 0.4 MG CAP.ER.24H. PO SCH (20:33)
[2020-10-06] MEDS: traZODone 100 MG TABLET. PO SCH (20:34)
[2020-10-06] MEDS: LURASIDONE 40 MG TABLET. PO SCH (20:34)
--- NOTE | 2020-10-06 22:03 | PDOC ---
Exam Note: John Note: Please also refer to the separate dictated note~for this date of service dictated separately.~Patient seen individually. Discussed the patient with Nursing staff reviewed the chart.~Reviewed interim history and current functioning. Reviewed vital signs,~Labs/ Radiology~and current medications noted below. Continue current treatment with the changes noted in the dictated addendum note Assessment: Vital Signs/I&O: Vital Signs Date Time Temp Pulse Resp B/P (MAP) Pulse Ox O2 Delivery O2 Flow Rate FiO2 10/06/20 15:53 97.5 68 16 122/70 (87) 96 10/06/20 06:20 Room Air I & O 10/05/20 10/05/20 10/06/20 15:00 23:00 07:00 Intake Total 360 ml 800 ml Output Total 1750 ml 325 ml Balance 360 ml -950 ml -325 ml Current Medications: Meds: Current Medications Medications (Trade) Dose Ordered Sig/Russel Route PRN Reason Start Time Stop Time Status Last Admin Dose Admin Furosemide (Lasix) 80 mg 1X ONCE PO 10/06/20 10:30 10/06/20 10:31 DC 10/06/20 11:16 I have reviewed the current psychotropics carefully including drug interactions. Risk benefit ratio favors no change other than as noted in my dictated progress note. Diagnosis: Problems: (1) Bipolar disorder, current episode mixed, severe, with psychotic features (2) Anxiety disorder (3) Schizoaffective disorder, bipolar type (4) Impulse control disorder (5) Mild cognitive impairment RADHA JARA MD October 06, 2020 22:03
[2020-10-07] MEDS: LEVOTHYROXINE 50 MCG TABLET PO SCH (05:33)
[2020-10-07 06:14] VITALS: BP 123/73
[2020-10-07 06:21] LABS: BASO # 0.1 x10^3/uL (0.0-0.2); BASO % 1 % (0-3); EOS # 0.6 x10^3/uL (0.0-0.7); EOS % 6 % (0-3); HEMOGLOBIN 11.4 g/dL (13.0-17.5); LYMPH # 2.7 x10^3/uL (1.0-4.8); LYMPH % 27 % (24-48); MEAN CORPUSCULAR HEMOGLOBIN 32 pg (25-35); MEAN CORPUSCULAR HGB CONC 34 g/dL (31-37); MEAN CORPUSCULAR VOLUME 94 fL (79-100); MONO # 1.1 x10^3/uL (0.0-1.1); MONO % 11 % (0-9); NEUT # 5.4 x10^3uL (1.8-7.7); NEUT % 55 % (31-73); PLATELET COUNT 286 x10^3/uL (140-400); RED BLOOD COUNT 3.61 x10^6/uL (4.30-5.70); RED CELL DISTRIBUTION WIDTH 14.6 % (11.5-14.5); WHITE BLOOD COUNT 9.9 x10^3/uL (4.0-11.0)
[2020-10-07 06:40] LABS: ALBUMIN 2.6 g/dL (3.4-5.0); ALBUMIN/GLOBULIN RATIO 0.6 (1.0-1.7); CREATININE 1.2 mg/dL (0.7-1.3); GFR 59.2; TOTAL BILIRUBIN 0.2 mg/dL (0.2-1.0); TOTAL PROTEIN 6.7 g/dL (6.4-8.2)
[2020-10-07] MEDS: VITS A & D/LANOLIN TOPICAL OINTMENT 42GM TUBE. TP SCH ×2 (09:00→21:13)
[2020-10-07] MEDS: POLYETHYLENE GLYCOL 3350 17 GM PACKET. PO SCH ×2 (09:00→09:01)
[2020-10-07] MEDS: ASPIRIN ENTERIC COATED 81 MG TABLET.DR. PO SCH (09:01)
[2020-10-07] MEDS: DIVALPROEX 125 MG CAP.SPRINK PO SCH ×2 (09:01→21:12)
[2020-10-07] MEDS: GABAPENTIN 100 MG CAPSULE. PO SCH ×3 (09:01→21:14)
[2020-10-07] MEDS: POTASSIUM CHLORIDE 20 MEQ TABLET.ER. PO SCH (09:01)
[2020-10-07] MEDS: LISINOPRIL 10 MG TABLET PO SCH (09:02)
[2020-10-07] MEDS: FUROSEMIDE 40 MG TABLET PO SCH (09:02)
[2020-10-07] MEDS: PRIMIDONE 50 MG TABLET PO SCH (09:02)
[2020-10-07] MEDS: NYSTATIN TOPICAL POWDER 15GM BOTTLE. TP SCH ×2 (09:02→21:13)
[2020-10-07] MEDS: VENLAFAXINE 50 MG TABLET. PO SCH ×3 (09:03→21:13)
--- NOTE | 2020-10-07 10:26 | PDOC ---
Exam Note: John Note: This note is a late entry for 10/06/2020 covers elements not covered in my initial note. Subjective: The patient was reviewed in the morning of 10/06/2020 for a treatment team meeting with Lakeisha Connell, Monika Treviño and Lorelei (social problems specialist), [facility] and Lexi LUNA, discussed and reviewed the chart. The patient slept 7 hours previous night. His son Steve attending the meeting as well. Reportedly per nursing report the patient has been more patient and has attended 5 groups per [facility] staff. Review of Systems: Ambulation impaired in Broda chair. No CV, , pulmonary, eye system symptoms on review. He is hard of hearing. I had to talk loudly in his ear. Mental Status Exam: The patient is oriented to himself and situation. Speech is coherent, low in volume. Abstraction is fair. Computation impaired. Language function intact. Attention span short. Mood and affect somewhat withdrawn. Laboratory Data: Reviewed. Impression: Bipolar disorder mixed with psychotic features. Anxiety disorder unspecified. Plan: Continue psychotropics from initial note. Son had many questions about the patients diagnosis, changes in psychotropics and we addressed all of this. We have had check on drug interactions and Primidone might aid in reducing the effective dosage of Latuda. We will keep this in mind as we adjust psychotropics. Assessment: Vital Signs/I&O: Vital Signs Date Time Temp Pulse Resp B/P (MAP) Pulse Ox O2 Delivery O2 Flow Rate FiO2 10/07/20 09:02 84 123/73 10/07/20 06:14 97.4 20 93 10/06/20 06:20 Room Air I & O 10/06/20 10/06/20 10/07/20 15:00 23:00 07:00 Intake Total 560 ml 200 ml 240 ml Output Total 800 ml Balance 560 ml 200 ml -560 ml Labs: Laboratory Tests Test 10/07/20 06:06 White Blood Count 9.9 x10^3/uL (4.0-11.0) Red Blood Count 3.61 x10^6/uL (4.30-5.70) L Hemoglobin 11.4 g/dL (13.0-17.5) L Hematocrit 34.0 % (39.0-53.0) L Mean Corpuscular Volume 94 fL (79-100) Mean Corpuscular Hemoglobin 32 pg (25-35) Mean Corpuscular Hemoglobin Concent 34 g/dL (31-37) Red Cell Distribution Width 14.6 % (11.5-14.5) H Platelet Count 286 x10^3/uL (140-400) Neutrophils (%) (Auto) 55 % (31-73) Lymphocytes (%) (Auto) 27 % (24-48) Monocytes (%) (Auto) 11 % (0-9) H Eosinophils (%) (Auto) 6 % (0-3) H Basophils (%) (Auto) 1 % (0-3) Neutrophils # (Auto) 5.4 x10^3uL (1.8-7.7) Lymphocytes # (Auto) 2.7 x10^3/uL (1.0-4.8) Monocytes # (Auto) 1.1 x10^3/uL (0.0-1.1) Eosinophils # (Auto) 0.6 x10^3/uL (0.0-0.7) Basophils # (Auto) 0.1 x10^3/uL (0.0-0.2) Sodium Level 141 mmol/L (136-145) Potassium Level 5.0 mmol/L (3.5-5.1) Chloride Level 103 mmol/L (98-107) Carbon Dioxide Level 32 mmol/L (21-32) Anion Gap 6 (6-14) Blood Urea Nitrogen 33 mg/dL (8-26) H Creatinine 1.2 mg/dL (0.7-1.3) Estimated GFR (Cockcroft-Gault) 59.2 BUN/Creatinine Ratio 28 (6-20) H Glucose Level 104 mg/dL (70-99) H Calcium Level 9.0 mg/dL (8.5-10.1) Total Bilirubin 0.2 mg/dL (0.2-1.0) Aspartate Amino Transferase (AST) 18 U/L (15-37) Alanine Aminotransferase (ALT) 28 U/L (16-63) Alkaline Phosphatase 73 U/L (46-116) Total Protein 6.7 g/dL (6.4-8.2) Albumin 2.6 g/dL (3.4-5.0) L Albumin/Globulin Ratio 0.6 (1.0-1.7) L Current Medications: Meds: Laboratory Tests Test 10/07/20 06:06 White Blood Count 9.9 x10^3/uL Red Blood Count 3.61 x10^6/uL Hemoglobin 11.4 g/dL Hematocrit 34.0 % Mean Corpuscular Volume 94 fL Mean Corpuscular Hemoglobin 32 pg Mean Corpuscular Hemoglobin Concent 34 g/dL Red Cell Distribution Width 14.6 % Platelet Count 286 x10^3/uL Neutrophils (%) (Auto) 55 % Lymphocytes (%) (Auto) 27 % Monocytes (%) (Auto) 11 % Eosinophils (%) (Auto) 6 % Basophils (%) (Auto) 1 % Neutrophils # (Auto) 5.4 x10^3uL Lymphocytes # (Auto) 2.7 x10^3/uL Monocytes # (Auto) 1.1 x10^3/uL Eosinophils # (Auto) 0.6 x10^3/uL Basophils # (Auto) 0.1 x10^3/uL Sodium Level 141 mmol/L Potassium Level 5.0 mmol/L Chloride Level 103 mmol/L Carbon Dioxide Level 32 mmol/L Anion Gap 6 Blood Urea Nitrogen 33 mg/dL Creatinine 1.2 mg/dL Estimated GFR (Cockcroft-Gault) 59.2 BUN/Creatinine Ratio 28 Glucose Level 104 mg/dL Calcium Level 9.0 mg/dL Total Bilirubin 0.2 mg/dL Aspartate Amino Transf (AST/SGOT) 18 U/L Alanine Aminotransferase (ALT/SGPT) 28 U/L Alkaline Phosphatase 73 U/L Total Protein 6.7 g/dL Albumin 2.6 g/dL Albumin/Globulin Ratio 0.6 Current Medications Medications (Trade) Dose Ordered Sig/Russel Route PRN Reason Start Time Stop Time Status Last Admin Dose Admin Divalproex Sodium (Depakote Er) 1,500 mg HS PO 09/22/20 21:00 09/25/20 06:29 DC 09/24/20 19:48 Gabapentin (Neurontin) 200 mg HS PO 09/22/20 21:00 10/02/20 17:18 DC 10/01/20 20:07 Primidone (Mysoline) 50 mg DAILY PO 09/22/20 09:00 10/07/20 09:02 Trazodone HCl (Desyrel) 100 mg QHS PO 09/22/20 21:00 10/06/20 20:34 Trazodone HCl (Desyrel) 100 mg PRN QHS PRN PO repeat dose/insomnia 09/22/20 01:30 09/24/20 02:00 Lurasidone HCl (Latuda) 80 mg QEVNG PO 09/22/20 18:00 10/03/20 16:54 DC 10/02/20 17:08 Venlafaxine HCl (Effexor) 50 mg TID PO 09/22/20 09:00 10/07/20 09:03 Acetaminophen (Tylenol) 650 mg PRN Q6HRS PRN PO MILD PAIN / TEMP > 100.3'F 09/22/20 01:30 10/04/20 21:26 Multi-Ingredient Ointment (Analgesic [place]) 1 colin PRN QID PRN TP MUSCLE PAIN 09/22/20 01:30 Al Hydroxide/Mg Hydroxide (Mylanta Plus Xs) 15 ml PRN AFTMEALHC PRN PO DYSPEPSIA 09/22/20 01:30 Magnesium Hydroxide (Milk Of Magnesia) 2,400 mg PRN QHS PRN PO 1ST CHOICE CONSTIPATION 09/22/20 01:30 09/24/20 05:40 Acetaminophen (Tylenol) 650 mg PRN QID PRN PO MILD PAIN 1-3 09/22/20 11:45 UNV Aspirin (Aspirin Enteric Coated) 81 mg DAILY PO 09/22/20 12:00 10/07/20 09:01 Levothyroxine Sodium (Synthroid) 50 mcg DAILY06 PO 09/23/20 06:00 10/07/20 05:33 Lisinopril (Prinivil) 20 mg DAILY PO 09/22/20 12:00 10/07/20 09:02 Nystatin (Nystop) 1 colin PRN BID PRN TP groin for rash as needed 09/22/20 11:45 Pantoprazole Sodium (Protonix) 40 mg BIDACLD PO 09/22/20 16:30 10/06/20 20:34 Tamsulosin HCl (Flomax) 0.4 mg HS PO 09/22/20 21:00 10/06/20 20:33 Polyethylene Glycol (miraLAX) 17 gm DAILY PO 09/23/20 09:00 10/07/20 09:01 Nystatin (Nystop) 1 colin BID TP 09/23/20 09:00 10/07/20 09:02 Vitamin A/Vitamin D (Vitamin A & D Ointment) 1 colin BID TP 09/23/20 21:00 10/07/20 09:00 Bisacodyl (Dulcolax Tab) 5 mg PRN DAILY PRN PO 2ND CHOICE CONSTIPATION 09/24/20 20:15 10/04/20 05:37 Divalproex Sodium (Depakote Sprinkles) 750 mg BID PO 09/25/20 09:00 10/07/20 09:01 Neomycin/ Polymyxin/Bacitr/ Hydrocort (Cortisporin Ophth) 1 colin BID OU 09/25/20 17:00 Cancel Neomycin/ Polymyxin/ Dexamethasone (Maxitrol) 2 drop BID OU 09/25/20 17:00 10/06/20 20:33 Gabapentin (Neurontin) 100 mg BID92 PO 10/02/20 09:00 10/02/20 17:18 DC 10/02/20 12:45 Gabapentin (Neurontin) 400 mg HS PO 10/02/20 17:30 10/06/20 20:34 Gabapentin (Neurontin) 200 mg BID92 PO 10/02/20 17:30 10/07/20 09:01 Furosemide (Lasix) 40 mg DAILY PO 10/03/20 09:00 10/07/20 09:02 Potassium Chloride (Klor-Con) 20 meq DAILYWBKFT PO 10/03/20 08:00 10/07/20 09:01 Lurasidone HCl (Latuda) 80 mg QHS PO 10/03/20 19:45 10/03/20 23:00 DC 10/03/20 20:39 Lurasidone HCl (Latuda) 80 mg QEVNG PO 10/04/20 18:00 10/06/20 20:34 Furosemide (Lasix) 80 mg 1X ONCE PO 10/06/20 10:30 10/06/20 10:31 DC 10/06/20 11:16 Current Medications Medications (Trade) Dose Ordered Sig/Russel Route PRN Reason Start Time Stop Time Status Last Admin Dose Admin Furosemide (Lasix) 80 mg 1X ONCE PO 10/06/20 10:30 10/06/20 10:31 DC 10/06/20 11:16 I have reviewed the current psychotropics carefully including drug interactions. Risk benefit ratio favors no change other than as noted in my dictated progress note. Diagnosis: Problems: (1) Bipolar disorder, current episode mixed, severe, with psychotic features (2) Schizoaffective disorder, bipolar type (3) Anxiety disorder (4) Impulse control disorder RADHA JARA MD October 07, 2020 10:26
[2020-10-07] MEDS: PANTOPRAZOLE 40 MG TABLET. PO SCH ×2 (11:30→17:03)
[2020-10-07 16:05] VITALS: BP 112/73
[2020-10-07] MEDS: LURASIDONE 40 MG TABLET. PO SCH (17:03)
[2020-10-07] MEDS: TAMSULOSIN 0.4 MG CAP.ER.24H. PO SCH (21:13)
[2020-10-07] MEDS: traZODone 100 MG TABLET. PO SCH (21:13)
[2020-10-07] MEDS: NEO/POLYMYX/DEXAMETH OPHTH SUSPENSION 5ML BOTTLE. OU SCH (21:13)
--- NOTE | 2020-10-07 21:53 | PDOC ---
Exam Note: John Note: Please also refer to the separate dictated note~for this date of service dictated separately.~Patient seen individually. Discussed the patient with Nursing staff reviewed the chart.~Reviewed interim history and current functioning. Reviewed vital signs,~Labs/ Radiology~and current medications noted below. Continue current treatment with the changes noted in the dictated addendum note Assessment: Vital Signs/I&O: Vital Signs Date Time Temp Pulse Resp B/P (MAP) Pulse Ox O2 Delivery O2 Flow Rate FiO2 10/07/20 16:05 97.3 70 20 112/73 (86) 96 Room Air I & O 10/06/20 10/06/20 10/07/20 15:00 23:00 07:00 Intake Total 560 ml 200 ml 240 ml Output Total 800 ml Balance 560 ml 200 ml -560 ml Labs: Laboratory Tests Test 10/07/20 06:06 White Blood Count 9.9 x10^3/uL (4.0-11.0) Red Blood Count 3.61 x10^6/uL (4.30-5.70) L Hemoglobin 11.4 g/dL (13.0-17.5) L Hematocrit 34.0 % (39.0-53.0) L Mean Corpuscular Volume 94 fL (79-100) Mean Corpuscular Hemoglobin 32 pg (25-35) Mean Corpuscular Hemoglobin Concent 34 g/dL (31-37) Red Cell Distribution Width 14.6 % (11.5-14.5) H Platelet Count 286 x10^3/uL (140-400) Neutrophils (%) (Auto) 55 % (31-73) Lymphocytes (%) (Auto) 27 % (24-48) Monocytes (%) (Auto) 11 % (0-9) H Eosinophils (%) (Auto) 6 % (0-3) H Basophils (%) (Auto) 1 % (0-3) Neutrophils # (Auto) 5.4 x10^3uL (1.8-7.7) Lymphocytes # (Auto) 2.7 x10^3/uL (1.0-4.8) Monocytes # (Auto) 1.1 x10^3/uL (0.0-1.1) Eosinophils # (Auto) 0.6 x10^3/uL (0.0-0.7) Basophils # (Auto) 0.1 x10^3/uL (0.0-0.2) Sodium Level 141 mmol/L (136-145) Potassium Level 5.0 mmol/L (3.5-5.1) Chloride Level 103 mmol/L (98-107) Carbon Dioxide Level 32 mmol/L (21-32) Anion Gap 6 (6-14) Blood Urea Nitrogen 33 mg/dL (8-26) H Creatinine 1.2 mg/dL (0.7-1.3) Estimated GFR (Cockcroft-Gault) 59.2 BUN/Creatinine Ratio 28 (6-20) H Glucose Level 104 mg/dL (70-99) H Calcium Level 9.0 mg/dL (8.5-10.1) Total Bilirubin 0.2 mg/dL (0.2-1.0) Aspartate Amino Transferase (AST) 18 U/L (15-37) Alanine Aminotransferase (ALT) 28 U/L (16-63) Alkaline Phosphatase 73 U/L (46-116) Total Protein 6.7 g/dL (6.4-8.2) Albumin 2.6 g/dL (3.4-5.0) L Albumin/Globulin Ratio 0.6 (1.0-1.7) L Current Medications: Meds: Laboratory Tests Test 10/07/20 06:06 White Blood Count 9.9 x10^3/uL Red Blood Count 3.61 x10^6/uL Hemoglobin 11.4 g/dL Hematocrit 34.0 % Mean Corpuscular Volume 94 fL Mean Corpuscular Hemoglobin 32 pg Mean Corpuscular Hemoglobin Concent 34 g/dL Red Cell Distribution Width 14.6 % Platelet Count 286 x10^3/uL Neutrophils (%) (Auto) 55 % Lymphocytes (%) (Auto) 27 % Monocytes (%) (Auto) 11 % Eosinophils (%) (Auto) 6 % Basophils (%) (Auto) 1 % Neutrophils # (Auto) 5.4 x10^3uL Lymphocytes # (Auto) 2.7 x10^3/uL Monocytes # (Auto) 1.1 x10^3/uL Eosinophils # (Auto) 0.6 x10^3/uL Basophils # (Auto) 0.1 x10^3/uL Sodium Level 141 mmol/L Potassium Level 5.0 mmol/L Chloride Level 103 mmol/L Carbon Dioxide Level 32 mmol/L Anion Gap 6 Blood Urea Nitrogen 33 mg/dL Creatinine 1.2 mg/dL Estimated GFR (Cockcroft-Gault) 59.2 BUN/Creatinine Ratio 28 Glucose Level 104 mg/dL Calcium Level 9.0 mg/dL Total Bilirubin 0.2 mg/dL Aspartate Amino Transf (AST/SGOT) 18 U/L Alanine Aminotransferase (ALT/SGPT) 28 U/L Alkaline Phosphatase 73 U/L Total Protein 6.7 g/dL Albumin 2.6 g/dL Albumin/Globulin Ratio 0.6 Current Medications Medications (Trade) Dose Ordered Sig/Russel Route PRN Reason Start Time Stop Time Status Last Admin Dose Admin Divalproex Sodium (Depakote Er) 1,500 mg HS PO 09/22/20 21:00 09/25/20 06:29 DC 09/24/20 19:48 Gabapentin (Neurontin) 200 mg HS PO 09/22/20 21:00 10/02/20 17:18 DC 10/01/20 20:07 Primidone (Mysoline) 50 mg DAILY PO 09/22/20 09:00 10/07/20 09:02 Trazodone HCl (Desyrel) 100 mg QHS PO 09/22/20 21:00 10/07/20 21:13 Trazodone HCl (Desyrel) 100 mg PRN QHS PRN PO repeat dose/insomnia 09/22/20 01:30 09/24/20 02:00 Lurasidone HCl (Latuda) 80 mg QEVNG PO 09/22/20 18:00 10/03/20 16:54 DC 10/02/20 17:08 Venlafaxine HCl (Effexor) 50 mg TID PO 09/22/20 09:00 10/07/20 21:13 Acetaminophen (Tylenol) 650 mg PRN Q6HRS PRN PO MILD PAIN / TEMP > 100.3'F 09/22/20 01:30 10/04/20 21:26 Multi-Ingredient Ointment (Analgesic [place]) 1 colin PRN QID PRN TP MUSCLE PAIN 09/22/20 01:30 Al Hydroxide/Mg Hydroxide (Mylanta Plus Xs) 15 ml PRN AFTMEALHC PRN PO DYSPEPSIA 09/22/20 01:30 Magnesium Hydroxide (Milk Of Magnesia) 2,400 mg PRN QHS PRN PO 1ST CHOICE CONSTIPATION 09/22/20 01:30 09/24/20 05:40 Acetaminophen (Tylenol) 650 mg PRN QID PRN PO MILD PAIN 1-3 09/22/20 11:45 UNV Aspirin (Aspirin Enteric Coated) 81 mg DAILY PO 09/22/20 12:00 10/07/20 09:01 Levothyroxine Sodium (Synthroid) 50 mcg DAILY06 PO 09/23/20 06:00 10/07/20 05:33 Lisinopril (Prinivil) 20 mg DAILY PO 09/22/20 12:00 10/07/20 09:02 Nystatin (Nystop) 1 colin PRN BID PRN TP groin for rash as needed 09/22/20 11:45 Pantoprazole Sodium (Protonix) 40 mg BIDACLD PO 09/22/20 16:30 10/07/20 17:03 Tamsulosin HCl (Flomax) 0.4 mg HS PO 09/22/20 21:00 10/07/20 21:13 Polyethylene Glycol (miraLAX) 17 gm DAILY PO 09/23/20 09:00 10/06/20 08:48 Nystatin (Nystop) 1 colin BID TP 09/23/20 09:00 10/07/20 21:13 Vitamin A/Vitamin D (Vitamin A & D Ointment) 1 colin BID TP 09/23/20 21:00 10/07/20 21:13 Bisacodyl (Dulcolax Tab) 5 mg PRN DAILY PRN PO 2ND CHOICE CONSTIPATION 09/24/20 20:15 10/04/20 05:37 Divalproex Sodium (Depakote Sprinkles) 750 mg BID PO 09/25/20 09:00 10/07/20 21:12 Neomycin/ Polymyxin/Bacitr/ Hydrocort (Cortisporin Ophth) 1 colin BID OU 09/25/20 17:00 Cancel Neomycin/ Polymyxin/ Dexamethasone (Maxitrol) 2 drop BID OU 09/25/20 17:00 10/07/20 21:13 Gabapentin (Neurontin) 100 mg BID92 PO 10/02/20 09:00 10/02/20 17:18 DC 10/02/20 12:45 Gabapentin (Neurontin) 400 mg HS PO 10/02/20 17:30 10/07/20 21:14 Gabapentin (Neurontin) 200 mg BID92 PO 10/02/20 17:30 10/07/20 09:01 Furosemide (Lasix) 40 mg DAILY PO 10/03/20 09:00 10/07/20 09:02 Potassium Chloride (Klor-Con) 20 meq DAILYWBKFT PO 10/03/20 08:00 10/07/20 09:01 Lurasidone HCl (Latuda) 80 mg QHS PO 10/03/20 19:45 10/03/20 23:00 DC 10/03/20 20:39 Lurasidone HCl (Latuda) 80 mg QEVNG PO 10/04/20 18:00 10/07/20 17:03 Furosemide (Lasix) 80 mg 1X ONCE PO 10/06/20 10:30 10/06/20 10:31 DC 10/06/20 11:16 I have reviewed the current psychotropics carefully including drug interactions. Risk benefit ratio favors no change other than as noted in my dictated progress note. Diagnosis: Problems: (1) Bipolar disorder, current episode mixed, severe, with psychotic features (2) Anxiety disorder (3) Schizoaffective disorder, bipolar type (4) Impulse control disorder RADHA JARA MD October 07, 2020 21:53
[2020-10-08] MEDS: LEVOTHYROXINE 50 MCG TABLET PO SCH (05:48)
[2020-10-08 06:13] VITALS: BP 89/57
[2020-10-08 06:18] VITALS: BP 110/62
[2020-10-08] MEDS: PANTOPRAZOLE 40 MG TABLET. PO SCH ×2 (09:00→17:24)
[2020-10-08] MEDS: NYSTATIN TOPICAL POWDER 15GM BOTTLE. TP SCH ×2 (09:00→21:05)
[2020-10-08] MEDS: POLYETHYLENE GLYCOL 3350 17 GM PACKET. PO SCH (09:00)
[2020-10-08] MEDS: NEO/POLYMYX/DEXAMETH OPHTH SUSPENSION 5ML BOTTLE. OU SCH ×2 (09:00→21:05)
[2020-10-08] MEDS: VENLAFAXINE 50 MG TABLET. PO SCH ×3 (09:00→21:06)
[2020-10-08] MEDS: ASPIRIN ENTERIC COATED 81 MG TABLET.DR. PO SCH (09:00)
[2020-10-08] MEDS: VITS A & D/LANOLIN TOPICAL OINTMENT 42GM TUBE. TP SCH ×2 (09:00→21:06)
[2020-10-08] MEDS: FUROSEMIDE 40 MG TABLET PO SCH (09:00)
[2020-10-08] MEDS: POTASSIUM CHLORIDE 20 MEQ TABLET.ER. PO SCH (09:00)
[2020-10-08] MEDS: PRIMIDONE 50 MG TABLET PO SCH (09:01)
[2020-10-08] MEDS: GABAPENTIN 100 MG CAPSULE. PO SCH ×3 (09:01→21:05)
[2020-10-08] MEDS: LISINOPRIL 10 MG TABLET PO SCH (09:01)
[2020-10-08] MEDS: DIVALPROEX 125 MG CAP.SPRINK PO SCH ×2 (09:01→21:06)
[2020-10-08 15:51] VITALS: BP 102/67
[2020-10-08] MEDS: LURASIDONE 40 MG TABLET. PO SCH (17:24)
[2020-10-08] MEDS: TAMSULOSIN 0.4 MG CAP.ER.24H. PO SCH (21:06)
[2020-10-08] MEDS: traZODone 100 MG TABLET. PO SCH (21:06)
--- NOTE | 2020-10-08 22:18 | PDOC ---
Exam Note: John Note: Please also refer to the separate dictated note~for this date of service dictated separately.~Patient seen individually. Discussed the patient with Nursing staff reviewed the chart.~Reviewed interim history and current functioning. Reviewed vital signs,~Labs/ Radiology~and current medications noted below. Continue current treatment with the changes noted in the dictated addendum note Assessment: Vital Signs/I&O: Vital Signs Date Time Temp Pulse Resp B/P (MAP) Pulse Ox O2 Delivery O2 Flow Rate FiO2 10/08/20 15:51 97.1 78 20 102/67 (79) 95 10/08/20 06:13 Room Air I & O 10/07/20 10/07/20 10/08/20 15:00 23:00 07:00 Intake Total 480 ml 240 ml Output Total 1400 ml 1400 ml 700 ml Balance -920 ml -1160 ml -700 ml Current Medications: Meds: Current Medications Medications (Trade) Dose Ordered Sig/Russel Route PRN Reason Start Time Stop Time Status Last Admin Dose Admin Divalproex Sodium (Depakote Er) 1,500 mg HS PO 09/22/20 21:00 09/25/20 06:29 DC 09/24/20 19:48 Gabapentin (Neurontin) 200 mg HS PO 09/22/20 21:00 10/02/20 17:18 DC 10/01/20 20:07 Primidone (Mysoline) 50 mg DAILY PO 09/22/20 09:00 10/08/20 09:01 Trazodone HCl (Desyrel) 100 mg QHS PO 09/22/20 21:00 10/08/20 21:06 Trazodone HCl (Desyrel) 100 mg PRN QHS PRN PO repeat dose/insomnia 09/22/20 01:30 09/24/20 02:00 Lurasidone HCl (Latuda) 80 mg QEVNG PO 09/22/20 18:00 10/03/20 16:54 DC 10/02/20 17:08 Venlafaxine HCl (Effexor) 50 mg TID PO 09/22/20 09:00 10/08/20 21:06 Acetaminophen (Tylenol) 650 mg PRN Q6HRS PRN PO MILD PAIN / TEMP > 100.3'F 09/22/20 01:30 10/04/20 21:26 Multi-Ingredient Ointment (Analgesic [place]) 1 colin PRN QID PRN TP MUSCLE PAIN 09/22/20 01:30 Al Hydroxide/Mg Hydroxide (Mylanta Plus Xs) 15 ml PRN AFTMEALHC PRN PO DYSPEPSIA 09/22/20 01:30 Magnesium Hydroxide (Milk Of Magnesia) 2,400 mg PRN QHS PRN PO 1ST CHOICE CONSTIPATION 09/22/20 01:30 09/24/20 05:40 Acetaminophen (Tylenol) 650 mg PRN QID PRN PO MILD PAIN 1-3 09/22/20 11:45 UNV Aspirin (Aspirin Enteric Coated) 81 mg DAILY PO 09/22/20 12:00 10/08/20 09:00 Levothyroxine Sodium (Synthroid) 50 mcg DAILY06 PO 09/23/20 06:00 10/08/20 05:48 Lisinopril (Prinivil) 20 mg DAILY PO 09/22/20 12:00 10/08/20 09:01 Nystatin (Nystop) 1 colin PRN BID PRN TP groin for rash as needed 09/22/20 11:45 Pantoprazole Sodium (Protonix) 40 mg BIDACLD PO 09/22/20 16:30 10/08/20 17:24 Tamsulosin HCl (Flomax) 0.4 mg HS PO 09/22/20 21:00 10/08/20 21:06 Polyethylene Glycol (miraLAX) 17 gm DAILY PO 09/23/20 09:00 10/08/20 09:00 Nystatin (Nystop) 1 colin BID TP 09/23/20 09:00 10/08/20 21:05 Vitamin A/Vitamin D (Vitamin A & D Ointment) 1 colin BID TP 09/23/20 21:00 10/08/20 21:06 Bisacodyl (Dulcolax Tab) 5 mg PRN DAILY PRN PO 2ND CHOICE CONSTIPATION 09/24/20 20:15 10/04/20 05:37 Divalproex Sodium (Depakote Sprinkles) 750 mg BID PO 09/25/20 09:00 10/08/20 21:06 Neomycin/ Polymyxin/Bacitr/ Hydrocort (Cortisporin Ophth) 1 colin BID OU 09/25/20 17:00 Cancel Neomycin/ Polymyxin/ Dexamethasone (Maxitrol) 2 drop BID OU 09/25/20 17:00 10/08/20 21:05 Gabapentin (Neurontin) 100 mg BID92 PO 10/02/20 09:00 10/02/20 17:18 DC 10/02/20 12:45 Gabapentin (Neurontin) 400 mg HS PO 10/02/20 17:30 10/08/20 21:05 Gabapentin (Neurontin) 200 mg BID92 PO 10/02/20 17:30 10/08/20 13:55 Furosemide (Lasix) 40 mg DAILY PO 10/03/20 09:00 10/08/20 09:00 Potassium Chloride (Klor-Con) 20 meq DAILYWBKFT PO 10/03/20 08:00 10/08/20 09:00 Lurasidone HCl (Latuda) 80 mg QHS PO 10/03/20 19:45 10/03/20 23:00 DC 10/03/20 20:39 Lurasidone HCl (Latuda) 80 mg QEVNG PO 10/04/20 18:00 10/08/20 17:24 Furosemide (Lasix) 80 mg 1X ONCE PO 10/06/20 10:30 10/06/20 10:31 DC 10/06/20 11:16 I have reviewed the current psychotropics carefully including drug interactions. Risk benefit ratio favors no change other than as noted in my dictated progress note. Diagnosis: Problems: (1) Mild cognitive impairment (2) Impulse control disorder (3) Schizoaffective disorder, chronic condition with acute exacerbation (4) Anxiety disorder (5) Bipolar disorder, current episode mixed, severe, with psychotic features RADHA JARA MD October 08, 2020 22:18
[2020-10-09] MEDS: ACETAMINOPHEN 325 MG TABLET PO PRN ×3 (00:47→15:30)
[2020-10-09] MEDS: LEVOTHYROXINE 50 MCG TABLET PO SCH (05:22)
[2020-10-09 05:35] VITALS: BP 92/60
[2020-10-09] MEDS: GABAPENTIN 100 MG CAPSULE. PO SCH ×3 (08:52→20:25)
[2020-10-09] MEDS: POLYETHYLENE GLYCOL 3350 17 GM PACKET. PO SCH (08:52)
[2020-10-09] MEDS: NYSTATIN TOPICAL POWDER 15GM BOTTLE. TP SCH ×2 (08:52→20:27)
[2020-10-09] MEDS: ASPIRIN ENTERIC COATED 81 MG TABLET.DR. PO SCH (08:53)
[2020-10-09] MEDS: DIVALPROEX 125 MG CAP.SPRINK PO SCH ×2 (08:53→20:26)
[2020-10-09] MEDS: FUROSEMIDE 40 MG TABLET PO SCH (08:53)
[2020-10-09] MEDS: VENLAFAXINE 50 MG TABLET. PO SCH ×3 (08:53→20:25)
[2020-10-09] MEDS: POTASSIUM CHLORIDE 20 MEQ TABLET.ER. PO SCH (08:53)
[2020-10-09] MEDS: NEO/POLYMYX/DEXAMETH OPHTH SUSPENSION 5ML BOTTLE. OU SCH ×2 (08:54→20:30)
[2020-10-09] MEDS: LISINOPRIL 10 MG TABLET PO SCH (08:54)
[2020-10-09] MEDS: VITS A & D/LANOLIN TOPICAL OINTMENT 42GM TUBE. TP SCH ×2 (08:54→20:27)
[2020-10-09] MEDS: PRIMIDONE 50 MG TABLET PO SCH (09:00)
--- NOTE | 2020-10-09 09:02 | PDOC ---
Exam Note: John Note: This note is a late entry for 10/07/2020 covers elements not covered in my initial note. Subjective: The patient was seen individually in the evening of 10/07/2020 with Vincenzo LUNA, discussed and reviewed the chart. The patient slept 6-1/4 hours previous night. He did well in the morning but the afternoon he was agitated. He threw orange juice at nursing staff and was yelling, refused medications. He did take his medications and was calmer yet later. Review of Systems: Ambulation impaired in Broda chair. No CV, , pulmonary, eye system symptoms on review. He is hard of hearing. Mental Status Exam: The patient is reasonably oriented. Speech is coherent, has some latency, low in volume. Abstraction is fair. Computation impaired. Language function intact. Mood and affect somewhat withdrawn. Laboratory Data: Reviewed. Impression: Bipolar disorder mixed with psychotic features. Anxiety disorder unspecified. Plan: No change from initial note. I addressed the above issues of communication with nursing staff and he showed some insight. Assessment: Vital Signs/I&O: Vital Signs Date Time Temp Pulse Resp B/P (MAP) Pulse Ox O2 Delivery O2 Flow Rate FiO2 10/09/20 08:54 102 145/75 10/09/20 05:35 97.2 20 92 10/08/20 06:13 Room Air I & O 10/08/20 10/08/20 10/09/20 15:00 23:00 07:00 Intake Total 480 ml 360 ml Output Total 400 ml Balance 480 ml 360 ml -400 ml Current Medications: Meds: Current Medications Medications (Trade) Dose Ordered Sig/Russel Route PRN Reason Start Time Stop Time Status Last Admin Dose Admin Divalproex Sodium (Depakote Er) 1,500 mg HS PO 09/22/20 21:00 09/25/20 06:29 DC 09/24/20 19:48 Gabapentin (Neurontin) 200 mg HS PO 09/22/20 21:00 10/02/20 17:18 DC 10/01/20 20:07 Primidone (Mysoline) 50 mg DAILY PO 09/22/20 09:00 10/08/20 09:01 Trazodone HCl (Desyrel) 100 mg QHS PO 09/22/20 21:00 10/08/20 21:06 Trazodone HCl (Desyrel) 100 mg PRN QHS PRN PO repeat dose/insomnia 09/22/20 01:30 09/24/20 02:00 Lurasidone HCl (Latuda) 80 mg QEVNG PO 09/22/20 18:00 10/03/20 16:54 DC 10/02/20 17:08 Venlafaxine HCl (Effexor) 50 mg TID PO 09/22/20 09:00 10/09/20 08:53 Acetaminophen (Tylenol) 650 mg PRN Q6HRS PRN PO MILD PAIN / TEMP > 100.3'F 09/22/20 01:30 10/09/20 08:50 Multi-Ingredient Ointment (Analgesic [place]) 1 colin PRN QID PRN TP MUSCLE PAIN 09/22/20 01:30 Al Hydroxide/Mg Hydroxide (Mylanta Plus Xs) 15 ml PRN AFTMEALHC PRN PO DYSPEPSIA 09/22/20 01:30 Magnesium Hydroxide (Milk Of Magnesia) 2,400 mg PRN QHS PRN PO 1ST CHOICE CONSTIPATION 09/22/20 01:30 09/24/20 05:40 Acetaminophen (Tylenol) 650 mg PRN QID PRN PO MILD PAIN 1-3 09/22/20 11:45 UNV Aspirin (Aspirin Enteric Coated) 81 mg DAILY PO 09/22/20 12:00 10/09/20 08:53 Levothyroxine Sodium (Synthroid) 50 mcg DAILY06 PO 09/23/20 06:00 10/09/20 05:22 Lisinopril (Prinivil) 20 mg DAILY PO 09/22/20 12:00 10/09/20 08:54 Nystatin (Nystop) 1 colin PRN BID PRN TP groin for rash as needed 09/22/20 11:45 Pantoprazole Sodium (Protonix) 40 mg BIDACLD PO 09/22/20 16:30 10/08/20 17:24 Tamsulosin HCl (Flomax) 0.4 mg HS PO 09/22/20 21:00 10/08/20 21:06 Polyethylene Glycol (miraLAX) 17 gm DAILY PO 09/23/20 09:00 10/09/20 08:52 Nystatin (Nystop) 1 colin BID TP 09/23/20 09:00 10/09/20 08:52 Vitamin A/Vitamin D (Vitamin A & D Ointment) 1 colin BID TP 09/23/20 21:00 10/09/20 08:54 Bisacodyl (Dulcolax Tab) 5 mg PRN DAILY PRN PO 2ND CHOICE CONSTIPATION 09/24/20 20:15 10/04/20 05:37 Divalproex Sodium (Depakote Sprinkles) 750 mg BID PO 09/25/20 09:00 10/09/20 08:53 Neomycin/ Polymyxin/Bacitr/ Hydrocort (Cortisporin Ophth) 1 colin BID OU 09/25/20 17:00 Cancel Neomycin/ Polymyxin/ Dexamethasone (Maxitrol) 2 drop BID OU 09/25/20 17:00 10/09/20 08:54 Gabapentin (Neurontin) 100 mg BID92 PO 10/02/20 09:00 10/02/20 17:18 DC 10/02/20 12:45 Gabapentin (Neurontin) 400 mg HS PO 10/02/20 17:30 10/08/20 21:05 Gabapentin (Neurontin) 200 mg BID92 PO 10/02/20 17:30 10/09/20 08:52 Furosemide (Lasix) 40 mg DAILY PO 10/03/20 09:00 10/09/20 08:53 Potassium Chloride (Klor-Con) 20 meq DAILYWBKFT PO 10/03/20 08:00 10/09/20 08:53 Lurasidone HCl (Latuda) 80 mg QHS PO 10/03/20 19:45 10/03/20 23:00 DC 10/03/20 20:39 Lurasidone HCl (Latuda) 80 mg QEVNG PO 10/04/20 18:00 10/08/20 17:24 Furosemide (Lasix) 80 mg 1X ONCE PO 10/06/20 10:30 10/06/20 10:31 DC 10/06/20 11:16 I have reviewed the current psychotropics carefully including drug interactions. Risk benefit ratio favors no change other than as noted in my dictated progress note. Diagnosis: Problems: (1) Mild cognitive impairment (2) Impulse control disorder (3) Bipolar disorder, current episode mixed, severe, with psychotic features (4) Anxiety disorder (5) Schizoaffective disorder, bipolar type RADHA JARA MD October 09, 2020 09:02
--- NOTE | 2020-10-09 09:25 | PDOC ---
Exam Note: John Note: This note is a late entry for 10/08/2020 covers elements not covered in my initial note. Subjective: The patient was seen individually in the evening of 10/08/2020 with Lexi LUNA, discussed and reviewed the chart. The patient slept 5-3/4 hours previous night. He yells out at times, wanting staff to intervene, when they respond to him, he is calmer. Yelling is better today. Review of Systems: Ambulation impaired in Broda chair. No CV, , pulmonary, eye system symptoms on review. He is hard of hearing. I had to talk loudly in his ear. Mental Status Exam: The patient is oriented to himself and situation. Speech is coherent, low in volume. Abstraction is fair. Computation impaired. Language function intact. Attention span short. Mood and affect somewhat withdrawn. Laboratory Data: Reviewed. Impression: Bipolar disorder mixed with psychotic features. Anxiety disorder unspecified. Plan: Continue psychotropics from initial note. Adjust further as clinically indicated. Assessment: Vital Signs/I&O: Vital Signs Date Time Temp Pulse Resp B/P (MAP) Pulse Ox O2 Delivery O2 Flow Rate FiO2 10/09/20 08:54 102 145/75 10/09/20 05:35 97.2 20 92 10/08/20 06:13 Room Air I & O 10/08/20 10/08/20 10/09/20 15:00 23:00 07:00 Intake Total 480 ml 360 ml Output Total 400 ml Balance 480 ml 360 ml -400 ml Current Medications: Meds: Current Medications Medications (Trade) Dose Ordered Sig/Russel Route PRN Reason Start Time Stop Time Status Last Admin Dose Admin Divalproex Sodium (Depakote Er) 1,500 mg HS PO 09/22/20 21:00 09/25/20 06:29 DC 09/24/20 19:48 Gabapentin (Neurontin) 200 mg HS PO 09/22/20 21:00 10/02/20 17:18 DC 10/01/20 20:07 Primidone (Mysoline) 50 mg DAILY PO 09/22/20 09:00 10/09/20 09:00 Trazodone HCl (Desyrel) 100 mg QHS PO 09/22/20 21:00 10/08/20 21:06 Trazodone HCl (Desyrel) 100 mg PRN QHS PRN PO repeat dose/insomnia 09/22/20 01:30 09/24/20 02:00 Lurasidone HCl (Latuda) 80 mg QEVNG PO 09/22/20 18:00 10/03/20 16:54 DC 10/02/20 17:08 Venlafaxine HCl (Effexor) 50 mg TID PO 09/22/20 09:00 10/09/20 08:53 Acetaminophen (Tylenol) 650 mg PRN Q6HRS PRN PO MILD PAIN / TEMP > 100.3'F 09/22/20 01:30 10/09/20 08:50 Multi-Ingredient Ointment (Analgesic [place]) 1 colin PRN QID PRN TP MUSCLE PAIN 09/22/20 01:30 Al Hydroxide/Mg Hydroxide (Mylanta Plus Xs) 15 ml PRN AFTMEALHC PRN PO DYSPEPSIA 09/22/20 01:30 Magnesium Hydroxide (Milk Of Magnesia) 2,400 mg PRN QHS PRN PO 1ST CHOICE CONSTIPATION 09/22/20 01:30 09/24/20 05:40 Acetaminophen (Tylenol) 650 mg PRN QID PRN PO MILD PAIN 1-3 09/22/20 11:45 UNV Aspirin (Aspirin Enteric Coated) 81 mg DAILY PO 09/22/20 12:00 10/09/20 08:53 Levothyroxine Sodium (Synthroid) 50 mcg DAILY06 PO 09/23/20 06:00 10/09/20 05:22 Lisinopril (Prinivil) 20 mg DAILY PO 09/22/20 12:00 10/09/20 08:54 Nystatin (Nystop) 1 colni PRN BID PRN TP groin for rash as needed 09/22/20 11:45 Pantoprazole Sodium (Protonix) 40 mg BIDACLD PO 09/22/20 16:30 10/08/20 17:24 Tamsulosin HCl (Flomax) 0.4 mg HS PO 09/22/20 21:00 10/08/20 21:06 Polyethylene Glycol (miraLAX) 17 gm DAILY PO 09/23/20 09:00 10/09/20 08:52 Nystatin (Nystop) 1 colin BID TP 09/23/20 09:00 10/09/20 08:52 Vitamin A/Vitamin D (Vitamin A & D Ointment) 1 colin BID TP 09/23/20 21:00 10/09/20 08:54 Bisacodyl (Dulcolax Tab) 5 mg PRN DAILY PRN PO 2ND CHOICE CONSTIPATION 09/24/20 20:15 10/04/20 05:37 Divalproex Sodium (Depakote Sprinkles) 750 mg BID PO 09/25/20 09:00 10/09/20 08:53 Neomycin/ Polymyxin/Bacitr/ Hydrocort (Cortisporin Ophth) 1 colin BID OU 09/25/20 17:00 Cancel Neomycin/ Polymyxin/ Dexamethasone (Maxitrol) 2 drop BID OU 09/25/20 17:00 10/09/20 08:54 Gabapentin (Neurontin) 100 mg BID92 PO 10/02/20 09:00 10/02/20 17:18 DC 10/02/20 12:45 Gabapentin (Neurontin) 400 mg HS PO 10/02/20 17:30 10/08/20 21:05 Gabapentin (Neurontin) 200 mg BID92 PO 10/02/20 17:30 10/09/20 08:52 Furosemide (Lasix) 40 mg DAILY PO 10/03/20 09:00 10/09/20 08:53 Potassium Chloride (Klor-Con) 20 meq DAILYWBKFT PO 10/03/20 08:00 10/09/20 08:53 Lurasidone HCl (Latuda) 80 mg QHS PO 10/03/20 19:45 10/03/20 23:00 DC 10/03/20 20:39 Lurasidone HCl (Latuda) 80 mg QEVNG PO 10/04/20 18:00 10/08/20 17:24 Furosemide (Lasix) 80 mg 1X ONCE PO 10/06/20 10:30 10/06/20 10:31 DC 10/06/20 11:16 I have reviewed the current psychotropics carefully including drug interactions. Risk benefit ratio favors no change other than as noted in my dictated progress note. Diagnosis: Problems: (1) Mild cognitive impairment (2) Impulse control disorder (3) Anxiety disorder (4) Bipolar disorder, current episode mixed, severe, with psychotic features (5) Schizoaffective disorder, bipolar type RADHA JARA MD October 09, 2020 09:25
[2020-10-09 10:02] VITALS: BP 145/75
[2020-10-09] MEDS: PANTOPRAZOLE 40 MG TABLET. PO SCH ×2 (12:13→16:30)
[2020-10-09 15:45] VITALS: BP 105/56
[2020-10-09] MEDS: LURASIDONE 40 MG TABLET. PO SCH (20:26)
[2020-10-09] MEDS: traZODone 100 MG TABLET. PO SCH (20:26)
[2020-10-09] MEDS: TAMSULOSIN 0.4 MG CAP.ER.24H. PO SCH (20:27)
--- NOTE | 2020-10-09 22:15 | PDOC ---
Exam Note: John Note: Please also refer to the separate dictated note~for this date of service dictated separately.~Patient seen individually. Discussed the patient with Nursing staff reviewed the chart.~Reviewed interim history and current functioning. Reviewed vital signs,~Labs/ Radiology~and current medications noted below. Continue current treatment with the changes noted in the dictated addendum note Assessment: Vital Signs/I&O: Vital Signs Date Time Temp Pulse Resp B/P (MAP) Pulse Ox O2 Delivery O2 Flow Rate FiO2 10/09/20 15:45 97.0 73 18 105/56 (72) 96 10/08/20 06:13 Room Air I & O 10/08/20 10/08/20 10/09/20 15:00 23:00 07:00 Intake Total 480 ml 360 ml Output Total 600 ml 400 ml Balance 480 ml -240 ml -400 ml Current Medications: Meds: Current Medications Medications (Trade) Dose Ordered Sig/Russel Route PRN Reason Start Time Stop Time Status Last Admin Dose Admin Divalproex Sodium (Depakote Er) 1,500 mg HS PO 09/22/20 21:00 09/25/20 06:29 DC 09/24/20 19:48 Gabapentin (Neurontin) 200 mg HS PO 09/22/20 21:00 10/02/20 17:18 DC 10/01/20 20:07 Primidone (Mysoline) 50 mg DAILY PO 09/22/20 09:00 10/09/20 09:00 Trazodone HCl (Desyrel) 100 mg QHS PO 09/22/20 21:00 10/09/20 20:26 Trazodone HCl (Desyrel) 100 mg PRN QHS PRN PO repeat dose/insomnia 09/22/20 01:30 09/24/20 02:00 Lurasidone HCl (Latuda) 80 mg QEVNG PO 09/22/20 18:00 10/03/20 16:54 DC 10/02/20 17:08 Venlafaxine HCl (Effexor) 50 mg TID PO 09/22/20 09:00 10/09/20 20:25 Acetaminophen (Tylenol) 650 mg PRN Q6HRS PRN PO MILD PAIN / TEMP > 100.3'F 09/22/20 01:30 10/09/20 15:30 Multi-Ingredient Ointment (Analgesic [place]) 1 colin PRN QID PRN TP MUSCLE PAIN 09/22/20 01:30 Al Hydroxide/Mg Hydroxide (Mylanta Plus Xs) 15 ml PRN AFTMEALHC PRN PO DYSPEPSIA 09/22/20 01:30 Magnesium Hydroxide (Milk Of Magnesia) 2,400 mg PRN QHS PRN PO 1ST CHOICE CONSTIPATION 09/22/20 01:30 09/24/20 05:40 Acetaminophen (Tylenol) 650 mg PRN QID PRN PO MILD PAIN 1-3 09/22/20 11:45 UNV Aspirin (Aspirin Enteric Coated) 81 mg DAILY PO 09/22/20 12:00 10/09/20 08:53 Levothyroxine Sodium (Synthroid) 50 mcg DAILY06 PO 09/23/20 06:00 10/09/20 05:22 Lisinopril (Prinivil) 20 mg DAILY PO 09/22/20 12:00 10/09/20 08:54 Nystatin (Nystop) 1 colin PRN BID PRN TP groin for rash as needed 09/22/20 11:45 Pantoprazole Sodium (Protonix) 40 mg BIDACLD PO 09/22/20 16:30 10/09/20 12:13 Tamsulosin HCl (Flomax) 0.4 mg HS PO 09/22/20 21:00 10/09/20 20:27 Polyethylene Glycol (miraLAX) 17 gm DAILY PO 09/23/20 09:00 10/09/20 08:52 Nystatin (Nystop) 1 colin BID TP 09/23/20 09:00 10/09/20 20:27 Vitamin A/Vitamin D (Vitamin A & D Ointment) 1 colin BID TP 09/23/20 21:00 10/09/20 08:54 Bisacodyl (Dulcolax Tab) 5 mg PRN DAILY PRN PO 2ND CHOICE CONSTIPATION 09/24/20 20:15 10/04/20 05:37 Divalproex Sodium (Depakote Sprinkles) 750 mg BID PO 09/25/20 09:00 10/09/20 20:26 Neomycin/ Polymyxin/Bacitr/ Hydrocort (Cortisporin Ophth) 1 colin BID OU 09/25/20 17:00 Cancel Neomycin/ Polymyxin/ Dexamethasone (Maxitrol) 2 drop BID OU 09/25/20 17:00 10/09/20 08:54 Gabapentin (Neurontin) 100 mg BID92 PO 10/02/20 09:00 10/02/20 17:18 DC 10/02/20 12:45 Gabapentin (Neurontin) 400 mg HS PO 10/02/20 17:30 10/09/20 20:25 Gabapentin (Neurontin) 200 mg BID92 PO 10/02/20 17:30 10/09/20 14:07 Furosemide (Lasix) 40 mg DAILY PO 10/03/20 09:00 10/09/20 08:53 Potassium Chloride (Klor-Con) 20 meq DAILYWBKFT PO 10/03/20 08:00 10/09/20 08:53 Lurasidone HCl (Latuda) 80 mg QHS PO 10/03/20 19:45 10/03/20 23:00 DC 10/03/20 20:39 Lurasidone HCl (Latuda) 80 mg QEVNG PO 10/04/20 18:00 10/09/20 20:26 Furosemide (Lasix) 80 mg 1X ONCE PO 10/06/20 10:30 10/06/20 10:31 DC 10/06/20 11:16 I have reviewed the current psychotropics carefully including drug interactions. Risk benefit ratio favors no change other than as noted in my dictated progress note. Diagnosis: Problems: (1) Mild cognitive impairment (2) Impulse control disorder (3) Bipolar 1 disorder (4) Anxiety disorder (5) Bipolar disorder, current episode mixed, severe, with psychotic features RADHA JARA MD October 09, 2020 22:15
[2020-10-10] MEDS: LEVOTHYROXINE 50 MCG TABLET PO SCH (00:17)
[2020-10-10] MEDS: ACETAMINOPHEN 325 MG TABLET PO PRN (00:18)
[2020-10-10 06:26] VITALS: BP 107/64
--- NOTE | 2020-10-10 07:17 | PDOC ---
Exam Note: John Note: This note is a late entry for 10/09/2020 covers elements not covered in my initial note. Subjective: The patient was seen individually in the evening of 10/09/2020 with Lexi LUNA, discussed and reviewed the chart. The patient slept 7-1/4 hours previous night. He was agitated around breakfast but once staff intervenes he is quite accommodating. Review of Systems: Ambulation impaired in Broda chair. No CV, , pulmonary, eye system symptoms on review. He is hard of hearing. Mental Status Exam: The patient is oriented to himself and situation. Speech i s coherent, low in volume. Abstraction is fair. Computation impaired. Language function intact. Attention span short. Mood and affect somewhat withdrawn. Laboratory Data: Reviewed. Impression: Bipolar disorder mixed with psychotic features. Anxiety disorder unspecified. Plan: Continue psychotropics from initial note. Adjust further as clinically indicated. Assessment: Vital Signs/I&O: Vital Signs Date Time Temp Pulse Resp B/P (MAP) Pulse Ox O2 Delivery O2 Flow Rate FiO2 10/10/20 06:26 97.4 77 18 107/64 (78) 96 10/08/20 06:13 Room Air I & O 10/09/20 10/09/20 10/10/20 14:59 22:59 06:59 Intake Total 480 ml 80 ml Output Total 600 ml 500 ml Balance 480 ml -520 ml -500 ml Current Medications: Meds: Current Medications Medications (Trade) Dose Ordered Sig/Russel Route PRN Reason Start Time Stop Time Status Last Admin Dose Admin Divalproex Sodium (Depakote Er) 1,500 mg HS PO 09/22/20 21:00 09/25/20 06:29 DC 09/24/20 19:48 Gabapentin (Neurontin) 200 mg HS PO 09/22/20 21:00 10/02/20 17:18 DC 10/01/20 20:07 Primidone (Mysoline) 50 mg DAILY PO 09/22/20 09:00 10/09/20 09:00 Trazodone HCl (Desyrel) 100 mg QHS PO 09/22/20 21:00 10/09/20 20:26 Trazodone HCl (Desyrel) 100 mg PRN QHS PRN PO repeat dose/insomnia 09/22/20 01:30 09/24/20 02:00 Lurasidone HCl (Latuda) 80 mg QEVNG PO 09/22/20 18:00 10/03/20 16:54 DC 10/02/20 17:08 Venlafaxine HCl (Effexor) 50 mg TID PO 09/22/20 09:00 10/09/20 20:25 Acetaminophen (Tylenol) 650 mg PRN Q6HRS PRN PO MILD PAIN / TEMP > 100.3'F 09/22/20 01:30 10/10/20 00:18 Multi-Ingredient Ointment (Analgesic [place]) 1 colin PRN QID PRN TP MUSCLE PAIN 09/22/20 01:30 Al Hydroxide/Mg Hydroxide (Mylanta Plus Xs) 15 ml PRN AFTMEALHC PRN PO DYSPEPSIA 09/22/20 01:30 Magnesium Hydroxide (Milk Of Magnesia) 2,400 mg PRN QHS PRN PO 1ST CHOICE CONSTIPATION 09/22/20 01:30 09/24/20 05:40 Acetaminophen (Tylenol) 650 mg PRN QID PRN PO MILD PAIN 1-3 09/22/20 11:45 UNV Aspirin (Aspirin Enteric Coated) 81 mg DAILY PO 09/22/20 12:00 10/09/20 08:53 Levothyroxine Sodium (Synthroid) 50 mcg DAILY06 PO 09/23/20 06:00 10/10/20 00:17 Lisinopril (Prinivil) 20 mg DAILY PO 09/22/20 12:00 10/09/20 08:54 Nystatin (Nystop) 1 colin PRN BID PRN TP groin for rash as needed 09/22/20 11:45 Pantoprazole Sodium (Protonix) 40 mg BIDACLD PO 09/22/20 16:30 10/09/20 12:13 Tamsulosin HCl (Flomax) 0.4 mg HS PO 09/22/20 21:00 10/09/20 20:27 Polyethylene Glycol (miraLAX) 17 gm DAILY PO 09/23/20 09:00 10/09/20 08:52 Nystatin (Nystop) 1 colin BID TP 09/23/20 09:00 10/09/20 20:27 Vitamin A/Vitamin D (Vitamin A & D Ointment) 1 colin BID TP 09/23/20 21:00 10/09/20 08:54 Bisacodyl (Dulcolax Tab) 5 mg PRN DAILY PRN PO 2ND CHOICE CONSTIPATION 09/24/20 20:15 10/04/20 05:37 Divalproex Sodium (Depakote Sprinkles) 750 mg BID PO 09/25/20 09:00 10/09/20 20:26 Neomycin/ Polymyxin/Bacitr/ Hydrocort (Cortisporin Ophth) 1 colin BID OU 09/25/20 17:00 Cancel Neomycin/ Polymyxin/ Dexamethasone (Maxitrol) 2 drop BID OU 09/25/20 17:00 10/09/20 08:54 Gabapentin (Neurontin) 100 mg BID92 PO 10/02/20 09:00 10/02/20 17:18 DC 10/02/20 12:45 Gabapentin (Neurontin) 400 mg HS PO 10/02/20 17:30 10/09/20 20:25 Gabapentin (Neurontin) 200 mg BID92 PO 10/02/20 17:30 10/09/20 14:07 Furosemide (Lasix) 40 mg DAILY PO 10/03/20 09:00 10/09/20 08:53 Potassium Chloride (Klor-Con) 20 meq DAILYWBKFT PO 10/03/20 08:00 10/09/20 08:53 Lurasidone HCl (Latuda) 80 mg QHS PO 10/03/20 19:45 10/03/20 23:00 DC 10/03/20 20:39 Lurasidone HCl (Latuda) 80 mg QEVNG PO 10/04/20 18:00 10/09/20 20:26 Furosemide (Lasix) 80 mg 1X ONCE PO 10/06/20 10:30 10/06/20 10:31 DC 10/06/20 11:16 I have reviewed the current psychotropics carefully including drug interactions. Risk benefit ratio favors no change other than as noted in my dictated progress note. Diagnosis: Problems: (1) Mild cognitive impairment (2) Impulse control disorder (3) Schizoaffective disorder, bipolar type (4) Bipolar disorder, current episode mixed, severe, with psychotic features RADHA JARA MD October 10, 2020 07:17
[2020-10-10] MEDS: POTASSIUM CHLORIDE 20 MEQ TABLET.ER. PO SCH (08:34)
[2020-10-10] MEDS: PRIMIDONE 50 MG TABLET PO SCH (08:34)
[2020-10-10] MEDS: GABAPENTIN 100 MG CAPSULE. PO SCH ×3 (08:35→20:35)
[2020-10-10] MEDS: ASPIRIN ENTERIC COATED 81 MG TABLET.DR. PO SCH (08:35)
[2020-10-10] MEDS: NEO/POLYMYX/DEXAMETH OPHTH SUSPENSION 5ML BOTTLE. OU SCH ×2 (08:35→20:35)
[2020-10-10] MEDS: NYSTATIN TOPICAL POWDER 15GM BOTTLE. TP SCH ×2 (08:35→20:35)
[2020-10-10] MEDS: FUROSEMIDE 40 MG TABLET PO SCH (08:35)
[2020-10-10] MEDS: DIVALPROEX 125 MG CAP.SPRINK PO SCH ×2 (08:35→20:35)
[2020-10-10] MEDS: VENLAFAXINE 50 MG TABLET. PO SCH ×3 (08:35→20:35)
[2020-10-10] MEDS: LISINOPRIL 10 MG TABLET PO SCH (08:36)
[2020-10-10] MEDS: POLYETHYLENE GLYCOL 3350 17 GM PACKET. PO SCH (09:36)
[2020-10-10] MEDS: VITS A & D/LANOLIN TOPICAL OINTMENT 42GM TUBE. TP SCH ×2 (09:37→20:35)
[2020-10-10] MEDS: PANTOPRAZOLE 40 MG TABLET. PO SCH ×2 (14:42→17:16)
[2020-10-10 16:09] VITALS: BP 98/60
[2020-10-10] MEDS: LURASIDONE 40 MG TABLET. PO SCH (17:16)
[2020-10-10] MEDS: traZODone 100 MG TABLET. PO SCH (20:34)
[2020-10-10] MEDS: TAMSULOSIN 0.4 MG CAP.ER.24H. PO SCH (20:35)
--- NOTE | 2020-10-10 22:17 | PDOC ---
Exam Note: John Note: Please also refer to the separate dictated note~for this date of service dictated separately.~Patient seen individually. Discussed the patient with Nursing staff reviewed the chart.~Reviewed interim history and current functioning. Reviewed vital signs,~Labs/ Radiology~and current medications noted below. Continue current treatment with the changes noted in the dictated addendum note Assessment: Vital Signs/I&O: Vital Signs Date Time Temp Pulse Resp B/P (MAP) Pulse Ox O2 Delivery O2 Flow Rate FiO2 10/10/20 16:09 97.9 79 18 98/60 (73) 96 10/08/20 06:13 Room Air I & O 10/09/20 10/09/20 10/10/20 15:00 23:00 07:00 Intake Total 480 ml 80 ml Output Total 600 ml 500 ml Balance 480 ml -520 ml -500 ml Current Medications: Meds: Current Medications Medications (Trade) Dose Ordered Sig/Russel Route PRN Reason Start Time Stop Time Status Last Admin Dose Admin Divalproex Sodium (Depakote Er) 1,500 mg HS PO 09/22/20 21:00 09/25/20 06:29 DC 09/24/20 19:48 Gabapentin (Neurontin) 200 mg HS PO 09/22/20 21:00 10/02/20 17:18 DC 10/01/20 20:07 Primidone (Mysoline) 50 mg DAILY PO 09/22/20 09:00 10/10/20 08:34 Trazodone HCl (Desyrel) 100 mg QHS PO 09/22/20 21:00 10/10/20 20:34 Trazodone HCl (Desyrel) 100 mg PRN QHS PRN PO repeat dose/insomnia 09/22/20 01:30 09/24/20 02:00 Lurasidone HCl (Latuda) 80 mg QEVNG PO 09/22/20 18:00 10/03/20 16:54 DC 10/02/20 17:08 Venlafaxine HCl (Effexor) 50 mg TID PO 09/22/20 09:00 10/10/20 20:35 Acetaminophen (Tylenol) 650 mg PRN Q6HRS PRN PO MILD PAIN / TEMP > 100.3'F 09/22/20 01:30 10/10/20 00:18 Multi-Ingredient Ointment (Analgesic [place]) 1 colin PRN QID PRN TP MUSCLE PAIN 09/22/20 01:30 Al Hydroxide/Mg Hydroxide (Mylanta Plus Xs) 15 ml PRN AFTMEALHC PRN PO DYSPEPSIA 09/22/20 01:30 Magnesium Hydroxide (Milk Of Magnesia) 2,400 mg PRN QHS PRN PO 1ST CHOICE CONSTIPATION 09/22/20 01:30 09/24/20 05:40 Acetaminophen (Tylenol) 650 mg PRN QID PRN PO MILD PAIN 1-3 09/22/20 11:45 UNV Aspirin (Aspirin Enteric Coated) 81 mg DAILY PO 09/22/20 12:00 10/10/20 08:35 Levothyroxine Sodium (Synthroid) 50 mcg DAILY06 PO 09/23/20 06:00 10/10/20 00:17 Lisinopril (Prinivil) 20 mg DAILY PO 09/22/20 12:00 10/09/20 08:54 Nystatin (Nystop) 1 colin PRN BID PRN TP groin for rash as needed 09/22/20 11:45 Pantoprazole Sodium (Protonix) 40 mg BIDACLD PO 09/22/20 16:30 10/10/20 17:16 Tamsulosin HCl (Flomax) 0.4 mg HS PO 09/22/20 21:00 10/10/20 20:35 Polyethylene Glycol (miraLAX) 17 gm DAILY PO 09/23/20 09:00 10/09/20 08:52 Nystatin (Nystop) 1 colin BID TP 09/23/20 09:00 10/10/20 20:35 Vitamin A/Vitamin D (Vitamin A & D Ointment) 1 colin BID TP 09/23/20 21:00 10/10/20 20:35 Bisacodyl (Dulcolax Tab) 5 mg PRN DAILY PRN PO 2ND CHOICE CONSTIPATION 09/24/20 20:15 10/04/20 05:37 Divalproex Sodium (Depakote Sprinkles) 750 mg BID PO 09/25/20 09:00 10/10/20 20:35 Neomycin/ Polymyxin/Bacitr/ Hydrocort (Cortisporin Ophth) 1 colin BID OU 09/25/20 17:00 Cancel Neomycin/ Polymyxin/ Dexamethasone (Maxitrol) 2 drop BID OU 09/25/20 17:00 10/10/20 20:35 Gabapentin (Neurontin) 100 mg BID92 PO 10/02/20 09:00 10/02/20 17:18 DC 10/02/20 12:45 Gabapentin (Neurontin) 400 mg HS PO 10/02/20 17:30 10/10/20 20:35 Gabapentin (Neurontin) 200 mg BID92 PO 10/02/20 17:30 10/10/20 14:42 Furosemide (Lasix) 40 mg DAILY PO 10/03/20 09:00 10/10/20 08:35 Potassium Chloride (Klor-Con) 20 meq DAILYWBKFT PO 10/03/20 08:00 10/10/20 08:34 Lurasidone HCl (Latuda) 80 mg QHS PO 10/03/20 19:45 10/03/20 23:00 DC 10/03/20 20:39 Lurasidone HCl (Latuda) 80 mg QEVNG PO 10/04/20 18:00 10/10/20 17:16 Furosemide (Lasix) 80 mg 1X ONCE PO 10/06/20 10:30 10/06/20 10:31 DC 10/06/20 11:16 I have reviewed the current psychotropics carefully including drug interactions. Risk benefit ratio favors no change other than as noted in my dictated progress note. Diagnosis: Problems: (1) Mild cognitive impairment (2) Impulse control disorder (3) Schizoaffective disorder, bipolar type (4) Bipolar disorder, current episode mixed, severe, with psychotic features RADHA JARA MD October 10, 2020 22:17
[2020-10-11] MEDS: LEVOTHYROXINE 50 MCG TABLET PO SCH (05:52)
[2020-10-11 06:18] VITALS: BP 105/70
[2020-10-11] MEDS: DIVALPROEX 125 MG CAP.SPRINK PO SCH ×2 (08:10→20:42)
[2020-10-11] MEDS: VENLAFAXINE 50 MG TABLET. PO SCH ×3 (08:10→20:42)
[2020-10-11] MEDS: POTASSIUM CHLORIDE 20 MEQ TABLET.ER. PO SCH (08:11)
[2020-10-11] MEDS: FUROSEMIDE 40 MG TABLET PO SCH (08:11)
[2020-10-11] MEDS: GABAPENTIN 100 MG CAPSULE. PO SCH ×3 (08:11→20:41)
[2020-10-11] MEDS: NEO/POLYMYX/DEXAMETH OPHTH SUSPENSION 5ML BOTTLE. OU SCH ×2 (08:11→20:41)
[2020-10-11] MEDS: ASPIRIN ENTERIC COATED 81 MG TABLET.DR. PO SCH (08:11)
[2020-10-11] MEDS: PRIMIDONE 50 MG TABLET PO SCH (08:11)
[2020-10-11] MEDS: NYSTATIN TOPICAL POWDER 15GM BOTTLE. TP SCH ×2 (08:12→20:41)
[2020-10-11] MEDS: LISINOPRIL 10 MG TABLET PO SCH (08:12)
[2020-10-11] MEDS: VITS A & D/LANOLIN TOPICAL OINTMENT 42GM TUBE. TP SCH ×2 (08:12→20:41)
[2020-10-11] MEDS: POLYETHYLENE GLYCOL 3350 17 GM PACKET. PO SCH (08:12)
[2020-10-11] MEDS: PANTOPRAZOLE 40 MG TABLET. PO SCH ×2 (13:35→17:20)
[2020-10-11 15:57] VITALS: BP 106/69
[2020-10-11] MEDS: LURASIDONE 40 MG TABLET. PO SCH (17:20)
[2020-10-11] MEDS: TAMSULOSIN 0.4 MG CAP.ER.24H. PO SCH (20:41)
[2020-10-11] MEDS: traZODone 100 MG TABLET. PO SCH (20:42)
--- NOTE | 2020-10-11 21:57 | PDOC ---
Exam Note: John Note: Please also refer to the separate dictated note~for this date of service dictated separately.~Patient seen individually. Discussed the patient with Nursing staff reviewed the chart.~Reviewed interim history and current functioning. Reviewed vital signs,~Labs/ Radiology~and current medications noted below. Continue current treatment with the changes noted in the dictated addendum note Assessment: Vital Signs/I&O: Vital Signs Date Time Temp Pulse Resp B/P (MAP) Pulse Ox O2 Delivery O2 Flow Rate FiO2 10/11/20 15:57 98.1 73 16 106/69 (81) 95 10/08/20 06:13 Room Air I & O 10/10/20 10/10/20 10/11/20 15:00 23:00 07:00 Intake Total 480 ml 360 ml Output Total 1000 ml 500 ml Balance -520 ml -140 ml Current Medications: Meds: Current Medications Medications (Trade) Dose Ordered Sig/Russel Route PRN Reason Start Time Stop Time Status Last Admin Dose Admin Divalproex Sodium (Depakote Er) 1,500 mg HS PO 09/22/20 21:00 09/25/20 06:29 DC 09/24/20 19:48 Gabapentin (Neurontin) 200 mg HS PO 09/22/20 21:00 10/02/20 17:18 DC 10/01/20 20:07 Primidone (Mysoline) 50 mg DAILY PO 09/22/20 09:00 10/11/20 08:11 Trazodone HCl (Desyrel) 100 mg QHS PO 09/22/20 21:00 10/11/20 20:42 Trazodone HCl (Desyrel) 100 mg PRN QHS PRN PO repeat dose/insomnia 09/22/20 01:30 09/24/20 02:00 Lurasidone HCl (Latuda) 80 mg QEVNG PO 09/22/20 18:00 10/03/20 16:54 DC 10/02/20 17:08 Venlafaxine HCl (Effexor) 50 mg TID PO 09/22/20 09:00 10/11/20 20:42 Acetaminophen (Tylenol) 650 mg PRN Q6HRS PRN PO MILD PAIN / TEMP > 100.3'F 09/22/20 01:30 10/10/20 00:18 Multi-Ingredient Ointment (Analgesic [place]) 1 colin PRN QID PRN TP MUSCLE PAIN 09/22/20 01:30 Al Hydroxide/Mg Hydroxide (Mylanta Plus Xs) 15 ml PRN AFTMEALHC PRN PO DYSPEPSIA 09/22/20 01:30 Magnesium Hydroxide (Milk Of Magnesia) 2,400 mg PRN QHS PRN PO 1ST CHOICE CONSTIPATION 09/22/20 01:30 09/24/20 05:40 Acetaminophen (Tylenol) 650 mg PRN QID PRN PO MILD PAIN 1-3 09/22/20 11:45 UNV Aspirin (Aspirin Enteric Coated) 81 mg DAILY PO 09/22/20 12:00 10/11/20 08:11 Levothyroxine Sodium (Synthroid) 50 mcg DAILY06 PO 09/23/20 06:00 10/11/20 05:52 Lisinopril (Prinivil) 20 mg DAILY PO 09/22/20 12:00 10/09/20 08:54 Nystatin (Nystop) 1 colin PRN BID PRN TP groin for rash as needed 09/22/20 11:45 Pantoprazole Sodium (Protonix) 40 mg BIDACLD PO 09/22/20 16:30 10/11/20 17:20 Tamsulosin HCl (Flomax) 0.4 mg HS PO 09/22/20 21:00 10/11/20 20:41 Polyethylene Glycol (miraLAX) 17 gm DAILY PO 09/23/20 09:00 10/11/20 08:12 Nystatin (Nystop) 1 colin BID TP 09/23/20 09:00 10/11/20 20:41 Vitamin A/Vitamin D (Vitamin A & D Ointment) 1 colin BID TP 09/23/20 21:00 10/11/20 20:41 Bisacodyl (Dulcolax Tab) 5 mg PRN DAILY PRN PO 2ND CHOICE CONSTIPATION 09/24/20 20:15 10/04/20 05:37 Divalproex Sodium (Depakote Sprinkles) 750 mg BID PO 09/25/20 09:00 10/11/20 20:42 Neomycin/ Polymyxin/Bacitr/ Hydrocort (Cortisporin Ophth) 1 colin BID OU 09/25/20 17:00 Cancel Neomycin/ Polymyxin/ Dexamethasone (Maxitrol) 2 drop BID OU 09/25/20 17:00 10/11/20 20:41 Gabapentin (Neurontin) 100 mg BID92 PO 10/02/20 09:00 10/02/20 17:18 DC 10/02/20 12:45 Gabapentin (Neurontin) 400 mg HS PO 10/02/20 17:30 10/11/20 20:41 Gabapentin (Neurontin) 200 mg BID92 PO 10/02/20 17:30 10/11/20 13:35 Furosemide (Lasix) 40 mg DAILY PO 10/03/20 09:00 10/10/20 08:35 Potassium Chloride (Klor-Con) 20 meq DAILYWBKFT PO 10/03/20 08:00 10/11/20 08:11 Lurasidone HCl (Latuda) 80 mg QHS PO 10/03/20 19:45 10/03/20 23:00 DC 10/03/20 20:39 Lurasidone HCl (Latuda) 80 mg QEVNG PO 10/04/20 18:00 10/11/20 17:20 Furosemide (Lasix) 80 mg 1X ONCE PO 10/06/20 10:30 10/06/20 10:31 DC 10/06/20 11:16 I have reviewed the current psychotropics carefully including drug interactions. Risk benefit ratio favors no change other than as noted in my dictated progress note. Diagnosis: Problems: (1) Mild cognitive impairment (2) Impulse control disorder (3) Anxiety disorder (4) Schizoaffective disorder, bipolar type (5) Bipolar disorder, current episode mixed, severe, with psychotic features RADHA JARA MD Oct 11, 2020 21:57
[2020-10-12] MEDS ORDERED: BISA5TAB4 PO (03:27)
[2020-10-12] MEDS ORDERED: DIVA125C2 PO (03:28)
[2020-10-12] MEDS ORDERED: FURO40TA4 PO (03:28)
[2020-10-12] MEDS ORDERED: METH57CR17 TP (03:29)
[2020-10-12] MEDS ORDERED: NYST15PO9 TP (03:30)
[2020-10-12] MEDS ORDERED: NEO/5DRO EACHEYE (03:30)
[2020-10-12] MEDS ORDERED: POTA20TA4 PO (03:31)
[2020-10-12] MEDS ORDERED: GABA100C6 PO (03:32)
[2020-10-12] MEDS ORDERED: MAG-115 PO (03:33)
[2020-10-12] MEDS ORDERED: PETR113O TP (03:33)
[2020-10-12] MEDS: LEVOTHYROXINE 50 MCG TABLET PO SCH (06:07)
[2020-10-12 06:16] VITALS: BP 113/66
--- NOTE | 2020-10-12 06:57 | PDOC ---
Exam Note: John Note: This note is a late entry for 10/10/2020 covers elements not covered in my initial note. Subjective: The patient was seen individually in the evening of 10/10/2020 with Hattie LUNA, discussed and reviewed the chart. The patient slept 7-1/2 hours previous night. He remains in his Broda chair. I met with him in his room, watching TV, tends to act helpless. He has not been asking for pain medications. Review of Systems: Ambulation impaired in Broda chair. No CV, , pulmonary, eye system symptoms on review. He is hard of hearing. Mental Status Exam: The patient is oriented to himself and situation. Speech is coherent, low in volume. Abstraction is fair. Computation impaired. Lang uage function intact. Attention span short. Mood and affect somewhat withdrawn. Discussed discharge plans at length with him. He is agreeable. Laboratory Data: Reviewed. Impression: Bipolar disorder mixed with psychotic features. Anxiety disorder unspecified. Plan: Continue psychotropics from initial note. Adjust further as clinically indicated. Assessment: Vital Signs/I&O: Vital Signs Date Time Temp Pulse Resp B/P (MAP) Pulse Ox O2 Delivery O2 Flow Rate FiO2 10/12/20 06:16 97.6 76 16 113/66 (82) 94 Room Air I & O 10/11/20 10/11/20 10/12/20 15:00 23:00 07:00 Intake Total 840 ml 240 ml 120 ml Output Total 750 ml 250 ml Balance 840 ml -510 ml -130 ml Current Medications: Meds: Current Medications Medications (Trade) Dose Ordered Sig/Russel Route PRN Reason Start Time Stop Time Status Last Admin Dose Admin Divalproex Sodium (Depakote Er) 1,500 mg HS PO 09/22/20 21:00 09/25/20 06:29 DC 09/24/20 19:48 Gabapentin (Neurontin) 200 mg HS PO 09/22/20 21:00 10/02/20 17:18 DC 10/01/20 20:07 Primidone (Mysoline) 50 mg DAILY PO 09/22/20 09:00 10/11/20 08:11 Trazodone HCl (Desyrel) 100 mg QHS PO 09/22/20 21:00 10/11/20 20:42 Trazodone HCl (Desyrel) 100 mg PRN QHS PRN PO repeat dose/insomnia 09/22/20 01:30 09/24/20 02:00 Lurasidone HCl (Latuda) 80 mg QEVNG PO 09/22/20 18:00 10/03/20 16:54 DC 10/02/20 17:08 Venlafaxine HCl (Effexor) 50 mg TID PO 09/22/20 09:00 10/11/20 20:42 Acetaminophen (Tylenol) 650 mg PRN Q6HRS PRN PO MILD PAIN / TEMP > 100.3'F 09/22/20 01:30 10/10/20 00:18 Multi-Ingredient Ointment (Analgesic [place]) 1 colin PRN QID PRN TP MUSCLE PAIN 09/22/20 01:30 Al Hydroxide/Mg Hydroxide (Mylanta Plus Xs) 15 ml PRN AFTMEALHC PRN PO DYSPEPSIA 09/22/20 01:30 Magnesium Hydroxide (Milk Of Magnesia) 2,400 mg PRN QHS PRN PO 1ST CHOICE CONSTIPATION 09/22/20 01:30 09/24/20 05:40 Acetaminophen (Tylenol) 650 mg PRN QID PRN PO MILD PAIN 1-3 09/22/20 11:45 UNV Aspirin (Aspirin Enteric Coated) 81 mg DAILY PO 09/22/20 12:00 10/11/20 08:11 Levothyroxine Sodium (Synthroid) 50 mcg DAILY06 PO 09/23/20 06:00 10/12/20 06:07 Lisinopril (Prinivil) 20 mg DAILY PO 09/22/20 12:00 10/09/20 08:54 Nystatin (Nystop) 1 colin PRN BID PRN TP groin for rash as needed 09/22/20 11:45 Pantoprazole Sodium (Protonix) 40 mg BIDACLD PO 09/22/20 16:30 10/11/20 17:20 Tamsulosin HCl (Flomax) 0.4 mg HS PO 09/22/20 21:00 10/11/20 20:41 Polyethylene Glycol (miraLAX) 17 gm DAILY PO 09/23/20 09:00 10/11/20 08:12 Nystatin (Nystop) 1 colin BID TP 09/23/20 09:00 10/11/20 20:41 Vitamin A/Vitamin D (Vitamin A & D Ointment) 1 colin BID TP 09/23/20 21:00 10/11/20 20:41 Bisacodyl (Dulcolax Tab) 5 mg PRN DAILY PRN PO 2ND CHOICE CONSTIPATION 09/24/20 20:15 10/04/20 05:37 Divalproex Sodium (Depakote Sprinkles) 750 mg BID PO 09/25/20 09:00 10/11/20 20:42 Neomycin/ Polymyxin/Bacitr/ Hydrocort (Cortisporin Ophth) 1 colin BID OU 09/25/20 17:00 Cancel Neomycin/ Polymyxin/ Dexamethasone (Maxitrol) 2 drop BID OU 09/25/20 17:00 10/11/20 20:41 Gabapentin (Neurontin) 100 mg BID92 PO 10/02/20 09:00 10/02/20 17:18 DC 10/02/20 12:45 Gabapentin (Neurontin) 400 mg HS PO 10/02/20 17:30 10/11/20 20:41 Gabapentin (Neurontin) 200 mg BID92 PO 10/02/20 17:30 10/11/20 13:35 Furosemide (Lasix) 40 mg DAILY PO 10/03/20 09:00 10/10/20 08:35 Potassium Chloride (Klor-Con) 20 meq DAILYWBKFT PO 10/03/20 08:00 10/11/20 08:11 Lurasidone HCl (Latuda) 80 mg QHS PO 10/03/20 19:45 10/03/20 23:00 DC 10/03/20 20:39 Lurasidone HCl (Latuda) 80 mg QEVNG PO 10/04/20 18:00 10/11/20 17:20 Furosemide (Lasix) 80 mg 1X ONCE PO 10/06/20 10:30 10/06/20 10:31 DC 10/06/20 11:16 I have reviewed the current psychotropics carefully including drug interactions. Risk benefit ratio favors no change other than as noted in my dictated progress note. Diagnosis: Problems: (1) Bipolar disorder, current episode mixed, severe, with psychotic features (2) Schizoaffective disorder, bipolar type (3) Anxiety disorder (4) Impulse control disorder (5) Mild cognitive impairment RADHA JARA MD Oct 12, 2020 06:57
--- NOTE | 2020-10-12 07:32 | PDOC ---
Exam Note: John Note: This note is a late entry for 10/11/2020 covers elements not covered in my initial note. Subjective: The patient was seen individually in the evening of 10/11/2020 with Hattie LUNA, discussed and reviewed the chart. The patient slept 5-1/2 hours previous night. He has been sleeping on and off during the day, tired, yelling at night. Review of Systems: Ambulation impaired in Broda chair. No CV, , pulmonary, eye system symptoms on review. He is hard of hearing. Mental Status Exam: The patient is oriented to himself and situation. Speech is coherent, low in volume. Abstraction is fair. Computation impaired. Language function intact. Attention span short. Mood and affect somewhat withdrawn. Laboratory Data: Reviewed. Impression: Bipolar disorder mixed with psychotic features. Anxiety disorder unspecified. Plan: Continue psychotropics from initial note. We will transition the patient to senior care on 10/12. Assessment: Vital Signs/I&O: Vital Signs Date Time Temp Pulse Resp B/P (MAP) Pulse Ox O2 Delivery O2 Flow Rate FiO2 10/12/20 06:16 97.6 76 16 113/66 (82) 94 Room Air I & O 10/11/20 10/11/20 10/12/20 15:00 23:00 07:00 Intake Total 840 ml 240 ml 120 ml Output Total 750 ml 250 ml Balance 840 ml -510 ml -130 ml Current Medications: Meds: Current Medications Medications (Trade) Dose Ordered Sig/Russel Route PRN Reason Start Time Stop Time Status Last Admin Dose Admin Divalproex Sodium (Depakote Er) 1,500 mg HS PO 09/22/20 21:00 09/25/20 06:29 DC 09/24/20 19:48 Gabapentin (Neurontin) 200 mg HS PO 09/22/20 21:00 10/02/20 17:18 DC 10/01/20 20:07 Primidone (Mysoline) 50 mg DAILY PO 09/22/20 09:00 10/11/20 08:11 Trazodone HCl (Desyrel) 100 mg QHS PO 09/22/20 21:00 10/11/20 20:42 Trazodone HCl (Desyrel) 100 mg PRN QHS PRN PO repeat dose/insomnia 09/22/20 01:30 09/24/20 02:00 Lurasidone HCl (Latuda) 80 mg QEVNG PO 09/22/20 18:00 10/03/20 16:54 DC 10/02/20 17:08 Venlafaxine HCl (Effexor) 50 mg TID PO 09/22/20 09:00 10/11/20 20:42 Acetaminophen (Tylenol) 650 mg PRN Q6HRS PRN PO MILD PAIN / TEMP > 100.3'F 09/22/20 01:30 10/10/20 00:18 Multi-Ingredient Ointment (Analgesic [place]) 1 colin PRN QID PRN TP MUSCLE PAIN 09/22/20 01:30 Al Hydroxide/Mg Hydroxide (Mylanta Plus Xs) 15 ml PRN AFTMEALHC PRN PO DYSPEPSIA 09/22/20 01:30 Magnesium Hydroxide (Milk Of Magnesia) 2,400 mg PRN QHS PRN PO 1ST CHOICE CONSTIPATION 09/22/20 01:30 09/24/20 05:40 Acetaminophen (Tylenol) 650 mg PRN QID PRN PO MILD PAIN 1-3 09/22/20 11:45 UNV Aspirin (Aspirin Enteric Coated) 81 mg DAILY PO 09/22/20 12:00 10/11/20 08:11 Levothyroxine Sodium (Synthroid) 50 mcg DAILY06 PO 09/23/20 06:00 10/12/20 06:07 Lisinopril (Prinivil) 20 mg DAILY PO 09/22/20 12:00 10/09/20 08:54 Nystatin (Nystop) 1 colin PRN BID PRN TP groin for rash as needed 09/22/20 11:45 Pantoprazole Sodium (Protonix) 40 mg BIDACLD PO 09/22/20 16:30 10/11/20 17:20 Tamsulosin HCl (Flomax) 0.4 mg HS PO 09/22/20 21:00 10/11/20 20:41 Polyethylene Glycol (miraLAX) 17 gm DAILY PO 09/23/20 09:00 10/11/20 08:12 Nystatin (Nystop) 1 colin BID TP 09/23/20 09:00 10/11/20 20:41 Vitamin A/Vitamin D (Vitamin A & D Ointment) 1 colin BID TP 09/23/20 21:00 10/11/20 20:41 Bisacodyl (Dulcolax Tab) 5 mg PRN DAILY PRN PO 2ND CHOICE CONSTIPATION 09/24/20 20:15 10/04/20 05:37 Divalproex Sodium (Depakote Sprinkles) 750 mg BID PO 09/25/20 09:00 10/11/20 20:42 Neomycin/ Polymyxin/Bacitr/ Hydrocort (Cortisporin Ophth) 1 colin BID OU 09/25/20 17:00 Cancel Neomycin/ Polymyxin/ Dexamethasone (Maxitrol) 2 drop BID OU 09/25/20 17:00 10/11/20 20:41 Gabapentin (Neurontin) 100 mg BID92 PO 10/02/20 09:00 10/02/20 17:18 DC 10/02/20 12:45 Gabapentin (Neurontin) 400 mg HS PO 10/02/20 17:30 10/11/20 20:41 Gabapentin (Neurontin) 200 mg BID92 PO 10/02/20 17:30 10/11/20 13:35 Furosemide (Lasix) 40 mg DAILY PO 10/03/20 09:00 10/10/20 08:35 Potassium Chloride (Klor-Con) 20 meq DAILYWBKFT PO 10/03/20 08:00 10/11/20 08:11 Lurasidone HCl (Latuda) 80 mg QHS PO 10/03/20 19:45 10/03/20 23:00 DC 10/03/20 20:39 Lurasidone HCl (Latuda) 80 mg QEVNG PO 10/04/20 18:00 10/11/20 17:20 Furosemide (Lasix) 80 mg 1X ONCE PO 10/06/20 10:30 10/06/20 10:31 DC 10/06/20 11:16 I have reviewed the current psychotropics carefully including drug interactions. Risk benefit ratio favors no change other than as noted in my dictated progress note. Diagnosis: Problems: (1) Bipolar disorder, current episode mixed, severe, with psychotic features (2) Anxiety disorder (3) Schizoaffective disorder, bipolar type (4) Impulse control disorder (5) Mild cognitive impairment RADHA JARA MD Oct 12, 2020 07:32
[2020-10-12] MEDS: VENLAFAXINE 50 MG TABLET. PO SCH (08:46)
[2020-10-12] MEDS: PRIMIDONE 50 MG TABLET PO SCH (08:46)
[2020-10-12 08:47] VITALS: BP 113/66
[2020-10-12] MEDS: LISINOPRIL 10 MG TABLET PO SCH (08:47)
[2020-10-12] MEDS: FUROSEMIDE 40 MG TABLET PO SCH (08:47)
[2020-10-12] MEDS: POTASSIUM CHLORIDE 20 MEQ TABLET.ER. PO SCH (08:47)
[2020-10-12] MEDS: POLYETHYLENE GLYCOL 3350 17 GM PACKET. PO SCH (08:47)
[2020-10-12] MEDS: VITS A & D/LANOLIN TOPICAL OINTMENT 42GM TUBE. TP SCH (08:48)
[2020-10-12] MEDS: NEO/POLYMYX/DEXAMETH OPHTH SUSPENSION 5ML BOTTLE. OU SCH (08:48)
[2020-10-12] MEDS: DIVALPROEX 125 MG CAP.SPRINK PO SCH (08:48)
[2020-10-12] MEDS: GABAPENTIN 100 MG CAPSULE. PO SCH (08:48)
[2020-10-12] MEDS: ASPIRIN ENTERIC COATED 81 MG TABLET.DR. PO SCH (08:48)
[2020-10-12] MEDS: NYSTATIN TOPICAL POWDER 15GM BOTTLE. TP SCH (08:48)
--- NOTE | 2020-10-12 22:11 | PDOC ---
Exam Note: John Note: Please also refer to the separate dictated note~for this date of service dictated separately.~Patient seen individually. Discussed the patient with Nursing staff reviewed the chart.~Reviewed interim history and current functioning. Reviewed vital signs,~Labs/ Radiology~and current medications noted below. Continue current treatment with the changes noted in the dictated addendum note Assessment: Vital Signs/I&O: Vital Signs Date Time Temp Pulse Resp B/P (MAP) Pulse Ox O2 Delivery O2 Flow Rate FiO2 10/12/20 08:47 76 113/66 10/12/20 06:16 97.6 16 94 Room Air I & O 10/11/20 10/11/20 10/12/20 15:00 23:00 07:00 Intake Total 840 ml 240 ml 120 ml Output Total 750 ml 250 ml Balance 840 ml -510 ml -130 ml Current Medications: Meds: Current Medications Medications (Trade) Dose Ordered Sig/Russel Route PRN Reason Start Time Stop Time Status Last Admin Dose Admin Divalproex Sodium (Depakote Er) 1,500 mg HS PO 09/22/20 21:00 09/25/20 06:29 DC 09/24/20 19:48 Gabapentin (Neurontin) 200 mg HS PO 09/22/20 21:00 10/02/20 17:18 DC 10/01/20 20:07 Primidone (Mysoline) 50 mg DAILY PO 09/22/20 09:00 10/12/20 10:52 DC 10/12/20 08:46 Trazodone HCl (Desyrel) 100 mg QHS PO 09/22/20 21:00 10/12/20 10:52 DC 10/11/20 20:42 Trazodone HCl (Desyrel) 100 mg PRN QHS PRN PO repeat dose/insomnia 09/22/20 01:30 10/12/20 10:52 DC 09/24/20 02:00 Lurasidone HCl (Latuda) 80 mg QEVNG PO 09/22/20 18:00 10/03/20 16:54 DC 10/02/20 17:08 Venlafaxine HCl (Effexor) 50 mg TID PO 09/22/20 09:00 10/12/20 10:52 DC 10/12/20 08:46 Acetaminophen (Tylenol) 650 mg PRN Q6HRS PRN PO MILD PAIN / TEMP > 100.3'F 09/22/20 01:30 10/12/20 10:52 DC 10/10/20 00:18 Multi-Ingredient Ointment (Analgesic [place]) 1 colin PRN QID PRN TP MUSCLE PAIN 09/22/20 01:30 10/12/20 10:52 DC Al Hydroxide/Mg Hydroxide (Mylanta Plus Xs) 15 ml PRN AFTMEALHC PRN PO DYSPEPSIA 09/22/20 01:30 10/12/20 10:52 DC Magnesium Hydroxide (Milk Of Magnesia) 2,400 mg PRN QHS PRN PO 1ST CHOICE CONSTIPATION 09/22/20 01:30 10/12/20 10:52 DC 09/24/20 05:40 Acetaminophen (Tylenol) 650 mg PRN QID PRN PO MILD PAIN 1-3 09/22/20 11:45 UNV Aspirin (Aspirin Enteric Coated) 81 mg DAILY PO 09/22/20 12:00 10/12/20 10:52 DC 10/12/20 08:48 Levothyroxine Sodium (Synthroid) 50 mcg DAILY06 PO 09/23/20 06:00 10/12/20 10:52 DC 10/12/20 06:07 Lisinopril (Prinivil) 20 mg DAILY PO 09/22/20 12:00 10/12/20 10:52 DC 10/12/20 08:47 Nystatin (Nystop) 1 colin PRN BID PRN TP groin for rash as needed 09/22/20 11:45 10/12/20 10:52 DC Pantoprazole Sodium (Protonix) 40 mg BIDACLD PO 09/22/20 16:30 10/12/20 10:52 DC 10/11/20 17:20 Tamsulosin HCl (Flomax) 0.4 mg HS PO 09/22/20 21:00 10/12/20 10:52 DC 10/11/20 20:41 Polyethylene Glycol (miraLAX) 17 gm DAILY PO 09/23/20 09:00 10/12/20 10:52 DC 10/12/20 08:47 Nystatin (Nystop) 1 colin BID TP 09/23/20 09:00 10/12/20 10:52 DC 10/12/20 08:48 Vitamin A/Vitamin D (Vitamin A & D Ointment) 1 colin BID TP 09/23/20 21:00 10/12/20 10:52 DC 10/12/20 08:48 Bisacodyl (Dulcolax Tab) 5 mg PRN DAILY PRN PO 2ND CHOICE CONSTIPATION 09/24/20 20:15 10/12/20 10:52 DC 10/04/20 05:37 Divalproex Sodium (Depakote Sprinkles) 750 mg BID PO 09/25/20 09:00 10/12/20 10:52 DC 10/12/20 08:48 Neomycin/ Polymyxin/Bacitr/ Hydrocort (Cortisporin Ophth) 1 colin BID OU 09/25/20 17:00 Cancel Neomycin/ Polymyxin/ Dexamethasone (Maxitrol) 2 drop BID OU 09/25/20 17:00 10/12/20 10:52 DC 10/12/20 08:48 Gabapentin (Neurontin) 100 mg BID92 PO 10/02/20 09:00 10/02/20 17:18 DC 10/02/20 12:45 Gabapentin (Neurontin) 400 mg HS PO 10/02/20 17:30 10/12/20 10:52 DC 10/11/20 20:41 Gabapentin (Neurontin) 200 mg BID92 PO 10/02/20 17:30 10/12/20 10:52 DC 10/12/20 08:48 Furosemide (Lasix) 40 mg DAILY PO 10/03/20 09:00 10/12/20 10:52 DC 10/12/20 08:47 Potassium Chloride (Klor-Con) 20 meq DAILYWBKFT PO 10/03/20 08:00 10/12/20 10:52 DC 10/12/20 08:47 Lurasidone HCl (Latuda) 80 mg QHS PO 10/03/20 19:45 10/03/20 23:00 DC 10/03/20 20:39 Lurasidone HCl (Latuda) 80 mg QEVNG PO 10/04/20 18:00 10/12/20 10:52 DC 10/11/20 17:20 Furosemide (Lasix) 80 mg 1X ONCE PO 10/06/20 10:30 10/06/20 10:31 DC 10/06/20 11:16 I have reviewed the current psychotropics carefully including drug interactions. Risk benefit ratio favors no change other than as noted in my dictated progress note. Diagnosis: Problems: (1) Impulse control disorder (2) Mild cognitive impairment (3) Schizoaffective disorder, bipolar type (4) Bipolar disorder, current episode mixed, severe, with psychotic features (5) Anxiety disorder RADHA JARA MD Oct 12, 2020 22:11
--- NOTE | 2020-10-13 22:58 | DS ---
DATE OF DISCHARGE: 10/12/2020 DISCHARGE SUMMARY/PSYCHIATRIC PROGRESS NOTE This is a late entry covers the elements not covered in my initial note. REASON FOR ADMISSION: Please refer to the admission history for details. Briefly, the patient is a 75-year-old male referred to us from [facility], referred by his psychiatrist and primary care physician on account of an acute exacerbation of his bipolar disorder, mixed with psychotic features. He had been referred to [facility], was manic, psychotic, uncooperative at [facility], refusing vital signs, having marked insomnia, throwing the dining tray, threatening and aggressive behaviors. He was paranoid, stating the facility was evil. He had ruined his own hearing aids at the facility. He had failed outpatient psychiatric interventions resulting in this referral. SIGNIFICANT FINDINGS AND CLINICAL COURSE: Following admission, the patient was seen daily individually by myself from a psychiatric standpoint. Medical followup with Dr. Alexis/Dr. Mccoy. The patient remained quite psychotic, paranoid with marked mood lability at admission. Adjustments were made in his psychotropics and he seemed to respond to a combination of Depakote sprinkles 750 mg b.i.d., gabapentin 200 mg p.o. b.i.d. and 400 mg at bedtime, Latuda 80 mg at 1800, primidone 50 mg daily, trazodone 100 mg at bedtime, may repeat x1, Effexor 50 mg t.i.d. Prior to discharge, ambulation remained impaired. He is in a Broda chair as before. REVIEW OF SYSTEMS: No CV, , pulmonary, eye system symptoms on review. Also, hard of hearing. MENTAL STATUS EXAM: Oriented to himself and situation. Speech coherent, often responses monosyllabic. Abstraction fair, computation impaired, language function intact. Attention span short. Mood and affect, lability improved. No current suicidal or homicidal ideation at discharge. CONDITION ON DISCHARGE: Improved. FINAL DIAGNOSES: Bipolar 1 disorder, mixed with psychotic features, in remission; anxiety disorder, unspecified; impulse control disorder, unspecified. Rest unchanged from admission. DISCHARGE MEDICATIONS: Please refer to the [facility]. DISCHARGE INSTRUCTIONS: [facility]. Time for discharge day management greater than 30 minutes. CECILIA/ANGELA DR: CECILIA/addie TID: [id number]
== END 2020-10-12 10:38 | DRG 885 ==
LOC: GEROPSY 09-22 00:03
PROVIDERS: ADMIT Psychiatry & Neurology Psychiatry; ATTEND Psychiatry & Neurology Psychiatry
DX: F25.0 Schizoaffective disorder, bipolar type (principal); N18.9 Chronic kidney disease, unspecified; F03.91 Unspecified dementia, unspecified severity, with behavioral disturbance; E03.9 Hypothyroidism, unspecified; E11.22 Type 2 diabetes mellitus with diabetic chronic kidney disease; E66.9 Obesity, unspecified; Z68.29 Body mass index [BMI] 29.0-29.9, adult; E78.2 Mixed hyperlipidemia; F09 Unspecified mental disorder due to known physiological condition; F63.9 Impulse disorder, unspecified; G89.29 Other chronic pain; H91.90 Unspecified hearing loss, unspecified ear; I12.9 Hypertensive chronic kidney disease with stage 1 through stage 4 chronic kidney disease, or unspecified chronic kidney disease; I25.10 Atherosclerotic heart disease of native coronary artery without angina pectoris; K21.9 Gastro-esophageal reflux disease without esophagitis; M19.90 Unspecified osteoarthritis, unspecified site; R13.10 Dysphagia, unspecified; Z74.01 Bed confinement status; Z79.899 Other long term (current) drug therapy
CPT/HCPCS: 36415; 80053; 80061; 80164; 81001; 82306; 82607; 83036; 83540; 83550; 83735; 84436; 84443; 84480; 85025; 85379; 86592; 87086; 93005; 92610